=== PATIENT | female | born 1955 | race Caucasian/White ===

== ENCOUNTER 2016-04-30 15:59 | Inpatient (IN) | payer OTHER ==
[~2016-04-30] VITALS: Ht 167.6 cm; Wt 81.6 kg
[2016-04-30 16:58] LABS: BASO % 0 % (0-3); EOS % 0 % (0-3); HEMATOCRIT 31.6 % (36.0-47.0); HEMOGLOBIN 9.7 g/dL (12.0-15.5); LYMPH # 2.7 x10^3/uL (1.0-4.8); LYMPH % 22 % (24-48); MEAN CORPUSCULAR HEMOGLOBIN 24 pg (25-35); MEAN CORPUSCULAR HGB CONC 31 g/dL (31-37); MEAN CORPUSCULAR VOLUME 77 fL (79-100); MONO % 10 % (0-9); NEUT % 68 % (31-73); PLATELET COUNT 383 x10^3/uL (140-400); RED BLOOD COUNT 4.11 x10^6/uL (3.50-5.40); RED CELL DISTRIBUTION WIDTH 17.1 % (11.5-14.5); WHITE BLOOD COUNT 12.6 x10^3/uL (4.0-11.0)
[2016-04-30] MEDS ORDERED: IPRATRPIUM/ALBUTEROL 0.5/2.5MG 3 ML NEBU. NEB ONE (17:00)
[2016-04-30 17:12] LABS: CALCIUM 8.6 mg/dL (8.5-10.1); CREATININE 0.8 mg/dL (0.6-1.0); GFR 72.4
[2016-04-30 17:18] LABS: ALBUMIN 3.1 g/dL (3.4-5.0); DIRECT BILIRUBIN 0.2 mg/dL (0.0-0.2); TOTAL BILIRUBIN 0.7 mg/dL (0.2-1.0); TOTAL PROTEIN 6.1 g/dL (6.4-8.2)
--- NOTE | 2016-04-30 17:26 | PHYS DOC ---
Past Medical History Past Medical History: Diabetes-Type II, Hypertension, Renal Disease Past Surgical History: No Surgical History Additional Information: smoked as a teenager Alcohol Use: Rarely Drug Use: None Adult General Chief Complaint Chief Complaint: SHORTNESS OF BREATH HPI HPI 61-year-old female presenting to the emergency department with worsening shortness of breath and fatigue over the last 3 weeks. She reports being diagnosed with influenza and UTI. She reports mild swelling of her legs bilaterally. She denies any chest pain abdominal pain nausea vomiting. She denies fevers or chills. Her dyspnea is worse on exertion. Location lungs. Duration intermittent. Nonradiating. Review of systems is negative for chest pain abdominal pain nausea vomiting fevers or chills. All other review of systems is negative unless otherwise noted in history of present illness. Review of Systems Review of Systems SEE ABOVE. Current Medications Current Medications Current Medications Medications (Trade) Dose Ordered Sig/Nidhi Start Time Stop Time Status Last Admin Dose Admin Acetaminophen (Tylenol) 650 mg PRN Q6HRS PRN 04/30/16 20:45 Acetaminophen/ Hydrocodone Bitart (Lortab 5/325) 1 tab PRN Q4HRS PRN 04/30/16 20:45 Albuterol Sulfate (Ventolin Neb Soln) 2.5 mg PRN Q4HRS PRN 04/30/16 20:45 Albuterol/ Ipratropium (Duoneb) 3 ml 1X ONCE 04/30/16 17:00 04/30/16 17:01 DC 04/30/16 17:26 3 ML Ondansetron HCl (Zofran) 4 mg PRN Q6HRS PRN 04/30/16 20:45 Allergies Allergies Allergies Coded Allergies Type Severity Reaction Last Updated Verified No Known Drug Allergies 04/30/16 No Physical Exam Physical Exam Constitutional: Well developed, well nourished, no acute distress, non-toxic appearance. HENT: Normocephalic, atraumatic, bilateral external ears normal, oropharynx moist, no oral exudates, nose normal. [] Eyes: PERRLA, EOMI, conjunctiva normal, no discharge. [] Neck: Normal range of motion, no tenderness, supple, no stridor. Cardiovascular:Heart rate regular rhythm, no murmur [] Lungs & Thorax: Bilateral breath sounds clear to auscultation [] Abdomen: Bowel sounds normal, soft, no tenderness, no masses, no pulsatile masses. Skin: Warm, dry, no erythema, no rash. [] Back: No tenderness, no CVA tenderness. Extremities: No tenderness, no cyanosis, no clubbing, ROM intact, 2+ edema. Neurologic: Alert and oriented X 3, normal motor function, normal sensory function, no focal deficits noted. Psychologic: Affect normal, judgement normal, mood normal. [] Current Patient Data Vital Signs Vital Signs Date Time Temp Pulse Resp B/P Pulse Ox O2 Delivery O2 Flow Rate FiO2 04/30/16 20:12 108 22 105/74 96 Nasal Cannula 2 04/30/16 16:03 98.1 98.1 Lab Values Laboratory Tests Test 04/30/16 16:37 04/30/16 17:45 White Blood Count 12.6x10^3/uL (4.0-11.0) H Red Blood Count 4.11x10^6/uL (3.50-5.40) Hemoglobin 9.7g/dL (12.0-15.5) L Hematocrit 31.6% (36.0-47.0) L Mean Corpuscular Volume 77fL (79-100) L Mean Corpuscular Hemoglobin 24pg (25-35) L Mean Corpuscular Hemoglobin Concent 31g/dL (31-37) Red Cell Distribution Width 17.1% (11.5-14.5) H Platelet Count 383x10^3/uL (140-400) Neutrophils (%) (Auto) 68% (31-73) Lymphocytes (%) (Auto) 22% (24-48) L Monocytes (%) (Auto) 10% (0-9) H Eosinophils (%) (Auto) 0% (0-3) Basophils (%) (Auto) 0% (0-3) Neutrophils # (Auto) 8.6x10^3uL (1.8-7.7) H Lymphocytes # (Auto) 2.7x10^3/uL (1.0-4.8) Monocytes # (Auto) 1.2x10^3/uL (0.0-1.1) H Eosinophils # (Auto) 0.0x10^3/uL (0.0-0.7) Basophils # (Auto) 0.0x10^3/uL (0.0-0.2) Sodium Level 134mmol/L (136-145) L Potassium Level 4.0mmol/L (3.5-5.1) Chloride Level 98mmol/L (98-107) Carbon Dioxide Level 24mmol/L (21-32) Anion Gap 12 (6-14) Blood Urea Nitrogen 13mg/dL (7-20) Creatinine 0.8mg/dL (0.6-1.0) Estimated GFR (Cockcroft-Gault) 72.4 Glucose Level 122mg/dL (70-99) H Calcium Level 8.6mg/dL (8.5-10.1) Total Bilirubin 0.7mg/dL (0.2-1.0) Direct Bilirubin 0.2mg/dL (0.0-0.2) Aspartate Amino Transferase (AST) 37U/L (15-37) Alanine Aminotransferase (ALT) 60U/L (14-59) H Alkaline Phosphatase 115U/L (46-116) Troponin I Quantitative 0.032ng/mL (0.000-0.055) FW-Uod-A-Type Natriuretic Peptide 4912pg/mL (0-124) H Total Protein 6.1g/dL (6.4-8.2) L Albumin 3.1g/dL (3.4-5.0) L Lipase 140U/L (73-393) Urine Collection Type Unknown Urine Color Yellow Urine Clarity Clear Urine pH 6.0 Urine Specific [place] 1.020 Urine Protein 30mg/dL (NEG-TRACE) Urine Glucose (UA) Negativemg/dL (NEG) Urine Ketones (Stick) Negativemg/dL (NEG) Urine Blood Negative (NEG) Urine Nitrite Negative (NEG) Urine Bilirubin Negative (NEG) Urine Urobilinogen Dipstick 4.0mg/dL (0.2 mg/dL) Urine Leukocyte Esterase Small (NEG) Urine RBC 0/HPF (0-2) Urine WBC 5-10/HPF (0-4) Urine Squamous Epithelial Cells Few/LPF Urine Bacteria 0/HPF (0-FEW) Urine Mucus Slight/LPF Laboratory Tests 04/30/16 16:37 Laboratory Tests 04/30/16 16:37 EKG EKG [] Radiology/Procedures Radiology/Procedures [] Course & Med Decision Making Course & Med Decision Making Pertinent Labs and Imaging studies reviewed. (See chart for details) [] 61-year-old female presenting to the emergency department with 3 weeks of shortness of breath fatigue. Vital signs afebrile mild tachycardia. Otherwise unremarkable. Pertinent physical exam shows normal lungs to auscultation. Otherwise unremarkable exam other than mild edema. EKG unremarkable. Chest x- ray shows mild pulmonary vasculature and increased.. Blood work obtained which showed elevated proBNP. Leukocytosis present. Otherwise the patient not having clinical presentation suggestive of pneumonia. Hemoglobin mild anemia. Chemistry panel otherwise unremarkable. Troponin within the reference range of normal. Patient desaturated on walking desats examination down to the 70s. Patient was brought into the hospital for further evaluation workup and care including cardiology consultation. . Dragon Disclaimer Dragon Disclaimer This electronic medical record was generated, in whole or in part, using a voice recognition dictation system. Departure Departure Impression: Primary Impression: Shortness of breath Additional Impressions: Fatigue Malaise Edema Disposition: ADMITTED INPATIENT Admitting Physician: Campbell Tobias Condition: STABLE Referrals: VIVEK DE OLIVEIRA DO (PCP) Patient Instructions: Shortness of Breath Problem Qualifiers IBRAHIMA SHARP MD Apr 30, 2016 17:26
[2016-04-30 17:56] LABS: BILIRUBIN,URINE NEGATIVE (NEG); GLUCOSE,URINE NEGATIVE (NEG); NITRITE,URINE NEGATIVE (NEG); PROTEIN,URINE 30 mg/dL (NEG-TRACE)
[2016-04-30 18:05] LABS: BACTERIA,URINE 0 /HPF (0-FEW); RBC,URINE 0 /HPF (0-2); SQUAMOUS EPITHELIAL CELL,UR FEW /LPF
[2016-04-30] MEDS ORDERED: HYDROCODONE/APAP 5/325MG TABLET. PO PRN (20:45)
[2016-04-30] MEDS ORDERED: ONDANSETRON PF 4 MG/2 ML VIAL. IV PRN (20:45)
[2016-04-30] MEDS ORDERED: ALBUTEROL SULFATE 2.5 MG/3 ML NEBU. NEB PRN (20:45)
[2016-04-30] MEDS ORDERED: ACETAMINOPHEN 325 MG TABLET. PO PRN (20:45)
--- NOTE | 2016-04-30 20:54 | PDOC1 ---
History and Physical Date of Admission Date of Admission 04/30/16 Identification/Chief Complaint Chief Complaint sob Problems: Source Source: Chart review, Patient History of Present Illness History of Present Illness HPI HPI 61-year-old female presenting to the emergency department with worsening shortness of breath and fatigue over the last 3 weeks. pt has no heart problem before, has dm2 and ckd2. Pt started to feel sob , cold like symptom 3 weeks ago, with no cough till this week, no sputum, no fever, chills, went to [facility] 2 times and was told UTI and flu?. she was treated and mild dysuria was gone. She cont having dyspnea, exertional, cannot lie flat for sleep, with bl leg edema. She was told to fu with PCP and called card office and was told to come to hosp. need o2 in ER. Past Medical History Past Medical History DM2, CKD2 Past Surgical History Past Surgical History: No pertinent history Family History Family History: Heart Disease Social History Smoke: No ALCOHOL: none Drugs: None Current Problem List Problem List Problems Medical Problems: (1) Edema Status: Acute (2) Fatigue Status: Acute (3) Malaise Status: Acute (4) Shortness of breath Status: Acute Current Medications Current Medications Current Medications Medications (Trade) Dose Ordered Sig/Nidhi Start Time Stop Time Status Last Admin Dose Admin Acetaminophen (Tylenol) 650 mg PRN Q6HRS PRN 04/30/16 20:45 UNV Acetaminophen/ Hydrocodone Bitart (Lortab 5/325) 1 tab PRN Q4HRS PRN 04/30/16 20:45 UNV Albuterol/ Ipratropium (Duoneb) 3 ml 1X ONCE 04/30/16 17:00 04/30/16 17:01 DC 04/30/16 17:26 3 ML Enoxaparin Sodium (Lovenox 40mg Syringe) 40 mg Q24H 04/30/16 20:45 UNV Ondansetron HCl (Zofran) 4 mg PRN Q6HRS PRN 04/30/16 20:45 UNV Allergies Allergies Allergies Coded Allergies Type Severity Reaction Last Updated Verified No Known Drug Allergies 04/30/16 No ROS Review of System CONSTITUTIONAL: No fever or chills EYES: No recent changes SKIN: No rash or itching CARDIOVASCULAR: No chest pain, syncope, palpitations, or edema RESPIRATORY: No SOB or cough GASTROINTESTINAL: No nausea, vomiting or abdominal pain NEUROLOGICAL: No headaches or weakness ENDOCRINE: No cold or heat intolerance GENITOURINARY: No urgency or frequency of urination MUSCULOSKELETAL: No back pain or joint pain LYMPHATICS: No enlarged lymph nodes PSYCHIATRIC: No anxiety or depression Physical Exam Physical Exam GEN.: No apparent distress. Alert and oriented. looks tired and pale HEENT: Head is normocephalic, atraumatic NECK: Supple. LUNGS: Clear to auscultation. HEART: RRR, S1, S2 present. Peripheral pulses intact. tachycardia ABDOMEN: Soft, nontender. Positive bowel sounds. EXTREMITIES: Without any cyanosis. bl leg 1-2+ edema NEUROLOGIC: Normal speech, normal tone PSYCHIATRIC: Normal affect, normal mood. SKIN: No ulcerations Vitals Vitals Vital Signs Date Time Temp Pulse Resp B/P Pulse Ox O2 Delivery O2 Flow Rate FiO2 04/30/16 17:30 98 Room Air 04/30/16 16:03 98.1 106 20 113/51 98.1 Labs Labs Laboratory Tests Test 04/30/16 16:37 04/30/16 17:45 White Blood Count 12.6x10^3/uL (4.0-11.0) Red Blood Count 4.11x10^6/uL (3.50-5.40) Hemoglobin 9.7g/dL (12.0-15.5) Hematocrit 31.6% (36.0-47.0) Mean Corpuscular Volume 77fL (79-100) Mean Corpuscular Hemoglobin 24pg (25-35) Mean Corpuscular Hemoglobin Concent 31g/dL (31-37) Red Cell Distribution Width 17.1% (11.5-14.5) Platelet Count 383x10^3/uL (140-400) Neutrophils (%) (Auto) 68% (31-73) Lymphocytes (%) (Auto) 22% (24-48) Monocytes (%) (Auto) 10% (0-9) Eosinophils (%) (Auto) 0% (0-3) Basophils (%) (Auto) 0% (0-3) Neutrophils # (Auto) 8.6x10^3uL (1.8-7.7) Lymphocytes # (Auto) 2.7x10^3/uL (1.0-4.8) Monocytes # (Auto) 1.2x10^3/uL (0.0-1.1) Eosinophils # (Auto) 0.0x10^3/uL (0.0-0.7) Basophils # (Auto) 0.0x10^3/uL (0.0-0.2) Sodium Level 134mmol/L (136-145) Potassium Level 4.0mmol/L (3.5-5.1) Chloride Level 98mmol/L (98-107) Carbon Dioxide Level 24mmol/L (21-32) Anion Gap 12 (6-14) Blood Urea Nitrogen 13mg/dL (7-20) Creatinine 0.8mg/dL (0.6-1.0) Estimated GFR (Cockcroft-Gault) 72.4 Glucose Level 122mg/dL (70-99) Calcium Level 8.6mg/dL (8.5-10.1) Total Bilirubin 0.7mg/dL (0.2-1.0) Direct Bilirubin 0.2mg/dL (0.0-0.2) Aspartate Amino Transf (AST/SGOT) 37U/L (15-37) Alanine Aminotransferase (ALT/SGPT) 60U/L (14-59) Alkaline Phosphatase 115U/L (46-116) Troponin I Quantitative 0.032ng/mL (0.000-0.055) FL-Vby-D-Type Natriuretic Peptide 4912pg/mL (0-124) Total Protein 6.1g/dL (6.4-8.2) Albumin 3.1g/dL (3.4-5.0) Lipase 140U/L (73-393) Urine Collection Type Unknown Urine Color Yellow Urine Clarity Clear Urine pH 6.0 Urine Specific [place] 1.020 Urine Protein 30mg/dL (NEG-TRACE) Urine Glucose (UA) Negativemg/dL (NEG) Urine Ketones (Stick) Negativemg/dL (NEG) Urine Blood Negative (NEG) Urine Nitrite Negative (NEG) Urine Bilirubin Negative (NEG) Urine Urobilinogen Dipstick 4.0mg/dL (0.2 mg/dL) Urine Leukocyte Esterase Small (NEG) Urine RBC 0/HPF (0-2) Urine WBC 5-10/HPF (0-4) Urine Squamous Epithelial Cells Few/LPF Urine Bacteria 0/HPF (0-FEW) Urine Mucus Slight/LPF Laboratory Tests Test 04/30/16 16:37 04/30/16 17:45 White Blood Count 12.6x10^3/uL (4.0-11.0) Red Blood Count 4.11x10^6/uL (3.50-5.40) Hemoglobin 9.7g/dL (12.0-15.5) Hematocrit 31.6% (36.0-47.0) Mean Corpuscular Volume 77fL (79-100) Mean Corpuscular Hemoglobin 24pg (25-35) Mean Corpuscular Hemoglobin Concent 31g/dL (31-37) Red Cell Distribution Width 17.1% (11.5-14.5) Platelet Count 383x10^3/uL (140-400) Neutrophils (%) (Auto) 68% (31-73) Lymphocytes (%) (Auto) 22% (24-48) Monocytes (%) (Auto) 10% (0-9) Eosinophils (%) (Auto) 0% (0-3) Basophils (%) (Auto) 0% (0-3) Neutrophils # (Auto) 8.6x10^3uL (1.8-7.7) Lymphocytes # (Auto) 2.7x10^3/uL (1.0-4.8) Monocytes # (Auto) 1.2x10^3/uL (0.0-1.1) Eosinophils # (Auto) 0.0x10^3/uL (0.0-0.7) Basophils # (Auto) 0.0x10^3/uL (0.0-0.2) Sodium Level 134mmol/L (136-145) Potassium Level 4.0mmol/L (3.5-5.1) Chloride Level 98mmol/L (98-107) Carbon Dioxide Level 24mmol/L (21-32) Anion Gap 12 (6-14) Blood Urea Nitrogen 13mg/dL (7-20) Creatinine 0.8mg/dL (0.6-1.0) Estimated GFR (Cockcroft-Gault) 72.4 Glucose Level 122mg/dL (70-99) Calcium Level 8.6mg/dL (8.5-10.1) Total Bilirubin 0.7mg/dL (0.2-1.0) Direct Bilirubin 0.2mg/dL (0.0-0.2) Aspartate Amino Transf (AST/SGOT) 37U/L (15-37) Alanine Aminotransferase (ALT/SGPT) 60U/L (14-59) Alkaline Phosphatase 115U/L (46-116) Troponin I Quantitative 0.032ng/mL (0.000-0.055) EJ-Avi-A-Type Natriuretic Peptide 4912pg/mL (0-124) Total Protein 6.1g/dL (6.4-8.2) Albumin 3.1g/dL (3.4-5.0) Lipase 140U/L (73-393) Urine Collection Type Unknown Urine Color Yellow Urine Clarity Clear Urine pH 6.0 Urine Specific [place] 1.020 Urine Protein 30mg/dL (NEG-TRACE) Urine Glucose (UA) Negativemg/dL (NEG) Urine Ketones (Stick) Negativemg/dL (NEG) Urine Blood Negative (NEG) Urine Nitrite Negative (NEG) Urine Bilirubin Negative (NEG) Urine Urobilinogen Dipstick 4.0mg/dL (0.2 mg/dL) Urine Leukocyte Esterase Small (NEG) Urine RBC 0/HPF (0-2) Urine WBC 5-10/HPF (0-4) Urine Squamous Epithelial Cells Few/LPF Urine Bacteria 0/HPF (0-FEW) Urine Mucus Slight/LPF VTE Prophylaxis Ordered VTE Prophylaxis Devices: Yes VTE Pharmacological Prophylaxi: Yes Assessment/Plan Assessment/Plan 1. acute resp failure with hypoxia 2. Acute CHF, likely diastolic 3. dm2 4. ckd2 5. anemia, likely chronic plan: 1. will get Card consult 2. check troponin, TSH, LIpid panel, 3. check ECho need home meds ssi for now labs tmr albuterol prn daily weight in and out lasix 40mg iv x1 for now check iron, vitb12, fa SELINA RICHARDS MD Apr 30, 2016 20:53
[2016-04-30] MEDS ORDERED: FUROSEMIDE 40 MG/4 ML VIAL IVP ONE (21:30)
[2016-04-30 22:15] VITALS: BP 117/67
[2016-04-30] MEDS ORDERED: LOSA25TA4 PO (23:33)
[2016-04-30] MEDS ORDERED: BIMA2.5D EACHEYE (23:33)
[2016-04-30] MEDS ORDERED: POTA10TA10 PO (23:33)
[2016-04-30] MEDS ORDERED: METF500T4 PO (23:33)
[2016-04-30] MEDS ORDERED: FURO40TA4 PO (23:33)
[2016-04-30] MEDS ORDERED: ZOLP10TA PO (23:33)
[2016-04-30] MEDS ORDERED: ATOR10TA60 PO (23:33)
[2016-04-30] MEDS: ENOXAPARIN 40 MG/0.4 ML DISP.SYRIN. SQ SCH (23:40)
[2016-05-01] VITALS (7 sets, daily range): BP systolic 98–147; BP diastolic 64–98
--- NOTE | 2016-05-01 00:46 | RAD ---
Bilateral lower extremity venous Doppler: Reason for examination: Bilateral lower extremity swelling with shortness of breath. The right and left lower extremity venous systems were evaluated from the common femoral and greater saphenous veins distally to the calf veins with grayscale imaging, color flow imaging and spectral analysis. No deep venous thrombosis is seen in either venous system. There is normal response to compression and augmentation. Impression: No deep venous thrombosis in the right or left lower extremity. Electronically signed by: Dominique Moreno MD (May 01, 2016 00:44:58)
[2016-05-01 04:07] LABS: % SAT IRON 5 % (15-34); IRON,SERUM 18 ug/dL (50-170)
[2016-05-01 04:12] LABS: CHOLESTEROL/HDL RATIO 2.9
--- NOTE | 2016-05-01 05:27 | ACF ---
Admission Forms Criteria HEART FAILURE: COMMON COMPLICATIONS Clinical Indications for Inpatient Care (Place 'X' for any and all applicable criteria): Ongoing inpatient care may be indicated for heart failure with ANY ONE of the following (1)(2)(3)(4)(5): [ ]I. Ongoing need for care for primary condition requiring frequent therapy adjustments because of changes in cardiac function (eg, drug dosage changes for drugs that are renally metabolized) [ ]II. New-onset heart failure [ ]III. Heart failure with decreased urine output not responsive to attempts to optimize volume status [ ]IV. Acute cardiac ischemia causing or associated with failure [X]V. Complications of heart failure, including ANY ONE of the following: [ ]a) Pericardial effusion [ ]b) Symptomatic pleural effusion [ ]c) O2 saturation <90% or PO2 < 60 mm Hg (8.0 kPa) on room air or require baseline supplemental O2 [ ]d) Tachypnea [X]e) Dyspnea [ ]f) Syncope [ ]g) Change in mental status [ ]h) Acute renal insufficiency that is severe (reduction of more than 50% in estimated glomerular filtration rate from baseline) or progressive reduction of more than 25% in estimated glomerular filtration rate from baseline, with creatinine continuing to rise) [ ]i) Hemodynamic instability [ ]j) Anasarca [ ]k) Clinically significant metabolic abnormalities due to heart failure (eg, new-onset metabolic acidosis) Extended stay beyond goal length of stay for primary condition may be needed until ALL of the following are present(1)(3): [ ]a) Stable and effective diuretic regimen established (or patient on stable dialysis regimen if in chronic renal failure) [ ]b) Breathing comfortably at rest [ ]c) Saturation of arterial oxygen greater than 90% or at acceptable baseline [ ]d) Pulmonary edema absent or improved [ ]e) Hemodynamic stability [ ]f) Volume status acceptable on oral medication [ ]g) Peripheral or sacral edema absent or improved [ ]h) Renal function stable and manageable at a lower level of care [ ]i) Complications (eg, pleural effusion) resolved or manageable at a lower level of care [ ]j) Patient or caregiver has received written discharge instructions or educational material addressing activity level, diet, discharge medications, follow-up appointment, weight monitoring, and what to do if symptoms worsen The original [facility] content created by [employer] has been revised. The portions of the content which have been revised are identified through the use of italic text or in bold, and [facility] has neither reviewed nor approved the modified material.All other unmodified content is copyright [facility]. Please see references footnoted in the original [facility] edition 2016 Admission Criteria Met?: Yes BRETT BOURNE May 01, 2016 05:27
--- NOTE | 2016-05-01 06:47 | EKG ---
[facility] [address] [place] [address] Test Date: 2016-04-30 Test Time: 17:14:48 Pat Name: LEATHA WHITE Department: Room: Gender: F Conventions Assistant: : [id number] Requested By: IBRAHIMA SHARP Order Number: [id number] Reading MD: Measurements Intervals [place] Rate: 102 P: 66 [place]: 150 QRS: 105 QRSD: 88 T: 22 QT: 338 QTc: 445 Interpretive Statements SINUS TACHYCARDIA RIGHTWARD AXIS LOW LIMB LEAD VOLTAGE QRS(T) CONTOUR ABNORMALITY CONSIDER ANTEROLATERAL MYOCARDIAL DAMAGE T ABNORMALITY IN ANTEROSEPTAL LEADS RI6.01 Unconfirmed report No previous ECG available for comparison
--- NOTE | 2016-05-01 08:50 | RAD ---
Portable chest, 04/30/2016: History: Chest pain and weakness The heart is at the upper limits of normal in size. The pulmonary vascularity is normal. There is blunting of the costophrenic and vertebrophrenic angles on the left probably due to pleural fluid. Scarring is a less likely possibility. No pulmonary infiltrates are seen. IMPRESSION: Probable small left pleural effusion
--- NOTE | 2016-05-01 11:03 | PDOC2 ---
CONSULT Date of Consult Date of Consult DATE: 04/30/16 TIME: 20:52 Reason for Consult Reason for Consult: Suspected CHF Referring Physician Referring Physician: Dr. Tobias Identification/Chief Complaint Chief Complaint CHF History of Present Illness Reason for Visit: Patient is a pleasant 61 year old female who report being sick for about the past month. She was seen at [facility] for what she believed was the flu as well as a UTI. She was treated with antibiotics for the UTI though her breathing has remained labored since that time. Patient has also noticed swelling in her legs and face. Patient saw her primary doctor and was told to see cardiology. Patient came to the ER because her breathing was not improved and was unable to get in with cardiology for at least 2 weeks. Patient has a PMH of DM2 and CKD2 and has no known cardiac problems. Patient does not smoke or drink. Since admission patient has received 1 dose of 40mg IVP lasix and reports improved swelling of legs and is now able to take deep breaths. Past Surgical History Past Surgical History: No pertinent history Family History Family History: Heart Disease Social History No ALCOHOL: none Drugs: None Current Problem List Problem List Problems Medical Problems: (1) Edema Status: Acute (2) Fatigue Status: Acute (3) Malaise Status: Acute (4) Shortness of breath Status: Acute Current Medications Current Medications Current Medications Albuterol/ Ipratropium (Duoneb) 3 ml 1X ONCE NEB Last administered on 17:26; Start 04/30/16 at 17:00; Stop 04/30/16 at 17:01; Status DC Ondansetron HCl (Zofran) 4 mg PRN Q6HRS PRN IV NAUSEA/VOMITING; Start 04/30/16 at 20:45 Acetaminophen/ Hydrocodone Bitart (Lortab 5/325) 1 tab PRN Q4HRS PRN PO MILD PAIN; Start 04/30/16 at 20:45 Acetaminophen (Tylenol) 650 mg PRN Q6HRS PRN PO MILD PAIN / TEMP; Start at 20:45 Enoxaparin Sodium (Lovenox 40mg Syringe) 40 mg Q24H SQ Last administered on 23:40; Start 04/30/16 at 21:00 Albuterol Sulfate (Ventolin Neb Soln) 2.5 mg PRN Q4HRS PRN NEB SHORTNESS OF BREATH; Start 04/30/16 at 20:45 Furosemide (Lasix) 40 mg 1X ONCE IVP Last administered on 04/30/16t 23:40; Start 04/30/16 at 21:30; Stop 04/30/16 at 21:31; Status DC Active Scripts Active Reported Potassium Chloride 10 Meq Tablet.er 10 Meq PO DAILY Furosemide 40 Mg Tablet 40 Mg PO DAILY Ambien (Zolpidem Tartrate) 10 Mg Tablet 10 Mg PO HS PRN Lumigan (Bimatoprost) 2.5 Ml Drops 2 Drop EACHEYE QHS Atorvastatin Calcium 10 Mg Tablet 10 Mg PO DAILY Losartan Potassium 25 Mg Tablet 25 Mg PO DAILY Metformin Hcl 500 Mg Tablet 1 Tab PO BID Allergies Allergies: Coded Allergies: No Known Drug Allergies (Unverified , 04/30/16) Physical Exam General: Alert, Oriented X3, Cooperative, No acute distress HEENT: Atraumatic, Mucous membr. moist/pink Lungs: Clear to auscultation, Normal air movement Heart: Regular rate, Normal S1, Normal S2 Extremities: No cyanosis, Other (+1/4 pitting edema) Skin: No rashes, No breakdown Vitals VITALS Vital Signs Date Time Temp Pulse Resp B/P Pulse Ox O2 Delivery O2 Flow Rate FiO2 05/01/16 08:21 96 Room Air 05/01/16 08:00 2.0 05/01/16 07:15 98.4 103 18 105/68 98.4 Labs Labs Laboratory Tests Test 04/30/16 16:37 04/30/16 17:45 05/01/16 03:22 05/01/16 07:46 White Blood Count 12.6x10^3/uL (4.0-11.0) Red Blood Count 4.11x10^6/uL (3.50-5.40) Hemoglobin 9.7g/dL (12.0-15.5) Hematocrit 31.6% (36.0-47.0) Mean Corpuscular Volume 77fL (79-100) Mean Corpuscular Hemoglobin 24pg (25-35) Mean Corpuscular Hemoglobin Concent 31g/dL (31-37) Red Cell Distribution Width 17.1% (11.5-14.5) Platelet Count 383x10^3/uL (140-400) Neutrophils (%) (Auto) 68% (31-73) Lymphocytes (%) (Auto) 22% (24-48) Monocytes (%) (Auto) 10% (0-9) Eosinophils (%) (Auto) 0% (0-3) Basophils (%) (Auto) 0% (0-3) Neutrophils # (Auto) 8.6x10^3uL (1.8-7.7) Lymphocytes # (Auto) 2.7x10^3/uL (1.0-4.8) Monocytes # (Auto) 1.2x10^3/uL (0.0-1.1) Eosinophils # (Auto) 0.0x10^3/uL (0.0-0.7) Basophils # (Auto) 0.0x10^3/uL (0.0-0.2) Sodium Level 134mmol/L (136-145) Potassium Level 4.0mmol/L (3.5-5.1) Chloride Level 98mmol/L (98-107) Carbon Dioxide Level 24mmol/L (21-32) Anion Gap 12 (6-14) Blood Urea Nitrogen 13mg/dL (7-20) Creatinine 0.8mg/dL (0.6-1.0) Estimated GFR (Cockcroft-Gault) 72.4 Glucose Level 122mg/dL (70-99) Calcium Level 8.6mg/dL (8.5-10.1) Total Bilirubin 0.7mg/dL (0.2-1.0) Direct Bilirubin 0.2mg/dL (0.0-0.2) Aspartate Amino Transf (AST/SGOT) 37U/L (15-37) Alanine Aminotransferase (ALT/SGPT) 60U/L (14-59) Alkaline Phosphatase 115U/L (46-116) Troponin I Quantitative 0.032ng/mL (0.000-0.055) 0.044ng/mL (0.000-0.055) WU-Hri-E-Type Natriuretic Peptide 4912pg/mL (0-124) Total Protein 6.1g/dL (6.4-8.2) Albumin 3.1g/dL (3.4-5.0) Lipase 140U/L (73-393) Urine Collection Type Unknown Urine Color Yellow Urine Clarity Clear Urine pH 6.0 Urine Specific [place] 1.020 Urine Protein 30mg/dL (NEG-TRACE) Urine Glucose (UA) Negativemg/dL (NEG) Urine Ketones (Stick) Negativemg/dL (NEG) Urine Blood Negative (NEG) Urine Nitrite Negative (NEG) Urine Bilirubin Negative (NEG) Urine Urobilinogen Dipstick 4.0mg/dL (0.2 mg/dL) Urine Leukocyte Esterase Small (NEG) Urine RBC 0/HPF (0-2) Urine WBC 5-10/HPF (0-4) Urine Squamous Epithelial Cells Few/LPF Urine Bacteria 0/HPF (0-FEW) Urine Mucus Slight/LPF Iron Level 18ug/dL (50-170) Total Iron Binding Capacity 386ug/dL (250-450) Iron Saturation 5% (15-34) Ferritin 15ng/mL (8-252) Triglycerides Level 48mg/dL (0-150) Cholesterol Level 88mg/dL (0-200) LDL Cholesterol, Calculated 48mg/dL (0-100) VLDL Cholesterol, Calculated 10mg/dL (0-40) HDL Cholesterol 30mg/dL (40-60) Cholesterol/HDL Ratio 2.9 Thyroid Stimulating Hormone (TSH) 2.375uIU/mL (0.358-3.74) Glucose (Fingerstick) 130mg/dL (70-99) Laboratory Tests Test 04/30/16 16:37 04/30/16 17:45 05/01/16 03:22 05/01/16 07:46 White Blood Count 12.6x10^3/uL (4.0-11.0) Red Blood Count 4.11x10^6/uL (3.50-5.40) Hemoglobin 9.7g/dL (12.0-15.5) Hematocrit 31.6% (36.0-47.0) Mean Corpuscular Volume 77fL (79-100) Mean Corpuscular Hemoglobin 24pg (25-35) Mean Corpuscular Hemoglobin Concent 31g/dL (31-37) Red Cell Distribution Width 17.1% (11.5-14.5) Platelet Count 383x10^3/uL (140-400) Neutrophils (%) (Auto) 68% (31-73) Lymphocytes (%) (Auto) 22% (24-48) Monocytes (%) (Auto) 10% (0-9) Eosinophils (%) (Auto) 0% (0-3) Basophils (%) (Auto) 0% (0-3) Neutrophils # (Auto) 8.6x10^3uL (1.8-7.7) Lymphocytes # (Auto) 2.7x10^3/uL (1.0-4.8) Monocytes # (Auto) 1.2x10^3/uL (0.0-1.1) Eosinophils # (Auto) 0.0x10^3/uL (0.0-0.7) Basophils # (Auto) 0.0x10^3/uL (0.0-0.2) Sodium Level 134mmol/L (136-145) Potassium Level 4.0mmol/L (3.5-5.1) Chloride Level 98mmol/L (98-107) Carbon Dioxide Level 24mmol/L (21-32) Anion Gap 12 (6-14) Blood Urea Nitrogen 13mg/dL (7-20) Creatinine 0.8mg/dL (0.6-1.0) Estimated GFR (Cockcroft-Gault) 72.4 Glucose Level 122mg/dL (70-99) Calcium Level 8.6mg/dL (8.5-10.1) Total Bilirubin 0.7mg/dL (0.2-1.0) Direct Bilirubin 0.2mg/dL (0.0-0.2) Aspartate Amino Transf (AST/SGOT) 37U/L (15-37) Alanine Aminotransferase (ALT/SGPT) 60U/L (14-59) Alkaline Phosphatase 115U/L (46-116) Troponin I Quantitative 0.032ng/mL (0.000-0.055) 0.044ng/mL (0.000-0.055) WG-Dxk-K-Type Natriuretic Peptide 4912pg/mL (0-124) Total Protein 6.1g/dL (6.4-8.2) Albumin 3.1g/dL (3.4-5.0) Lipase 140U/L (73-393) Urine Collection Type Unknown Urine Color Yellow Urine Clarity Clear Urine pH 6.0 Urine Specific [place] 1.020 Urine Protein 30mg/dL (NEG-TRACE) Urine Glucose (UA) Negativemg/dL (NEG) Urine Ketones (Stick) Negativemg/dL (NEG) Urine Blood Negative (NEG) Urine Nitrite Negative (NEG) Urine Bilirubin Negative (NEG) Urine Urobilinogen Dipstick 4.0mg/dL (0.2 mg/dL) Urine Leukocyte Esterase Small (NEG) Urine RBC 0/HPF (0-2) Urine WBC 5-10/HPF (0-4) Urine Squamous Epithelial Cells Few/LPF Urine Bacteria 0/HPF (0-FEW) Urine Mucus Slight/LPF Iron Level 18ug/dL (50-170) Total Iron Binding Capacity 386ug/dL (250-450) Iron Saturation 5% (15-34) Ferritin 15ng/mL (8-252) Triglycerides Level 48mg/dL (0-150) Cholesterol Level 88mg/dL (0-200) LDL Cholesterol, Calculated 48mg/dL (0-100) VLDL Cholesterol, Calculated 10mg/dL (0-40) HDL Cholesterol 30mg/dL (40-60) Cholesterol/HDL Ratio 2.9 Thyroid Stimulating Hormone (TSH) 2.375uIU/mL (0.358-3.74) Glucose (Fingerstick) 130mg/dL (70-99) Assessment/Plan Assessment/Plan Pt with dyspnea, fatigue, edema CHF versus Pulmonary HTN Will get an echocardiogram to evaluate LV and PA pressure Thank you for asking me to participate in the care of this pt. NANCY MUNOZ MD May 01, 2016 11:03
[2016-05-01 11:19] LABS: FOLATE > 20.00 ng/ml (3.2-20.0); VITAMIN-B12 271 pg/mL (247-911)
[2016-05-01] MEDS ORDERED: DEXTROSE 50% 25 GM / 50ML DISP.SYRIN. IV PRN (12:45)
--- NOTE | 2016-05-01 12:49 | PDOC ---
PROGRESS NOTES Chief Complaint Chief Complaint Acute hypoxic respir failure ASSESSMENT AND PLAN: 1. CHF: acute, previously undiagnosed. likely diastolic. echo report pending. responded well to diuresis. awaiting cardiology input 2. DM2: well controlled; hold metformin for now; ISS 3. CKD2: no acute issues 5. Anemia: microcytic. iron labs c/w severe iron deficiency. replete PO. will need GI w/u on O/P basis Vitals Vitals Vital Signs Date Time Temp Pulse Resp B/P Pulse Ox O2 Delivery O2 Flow Rate FiO2 05/01/16 10:59 98.1 100 16 110/74 98 Nasal Cannula 2.0 98.1 Physical Exam General: Alert, Oriented X3, Cooperative, No acute distress Heart: Regular rate Lungs: Clear Abdomen: Normal bowel sounds, Soft, No tenderness Extremities: No cyanosis, No edema Skin: No rashes, No breakdown Labs LABS Laboratory Tests Test 04/30/16 16:37 04/30/16 17:45 05/01/16 03:22 05/01/16 07:46 White Blood Count 12.6x10^3/uL (4.0-11.0) Red Blood Count 4.11x10^6/uL (3.50-5.40) Hemoglobin 9.7g/dL (12.0-15.5) Hematocrit 31.6% (36.0-47.0) Mean Corpuscular Volume 77fL (79-100) Mean Corpuscular Hemoglobin 24pg (25-35) Mean Corpuscular Hemoglobin Concent 31g/dL (31-37) Red Cell Distribution Width 17.1% (11.5-14.5) Platelet Count 383x10^3/uL (140-400) Neutrophils (%) (Auto) 68% (31-73) Lymphocytes (%) (Auto) 22% (24-48) Monocytes (%) (Auto) 10% (0-9) Eosinophils (%) (Auto) 0% (0-3) Basophils (%) (Auto) 0% (0-3) Neutrophils # (Auto) 8.6x10^3uL (1.8-7.7) Lymphocytes # (Auto) 2.7x10^3/uL (1.0-4.8) Monocytes # (Auto) 1.2x10^3/uL (0.0-1.1) Eosinophils # (Auto) 0.0x10^3/uL (0.0-0.7) Basophils # (Auto) 0.0x10^3/uL (0.0-0.2) Sodium Level 134mmol/L (136-145) Potassium Level 4.0mmol/L (3.5-5.1) Chloride Level 98mmol/L (98-107) Carbon Dioxide Level 24mmol/L (21-32) Anion Gap 12 (6-14) Blood Urea Nitrogen 13mg/dL (7-20) Creatinine 0.8mg/dL (0.6-1.0) Estimated GFR (Cockcroft-Gault) 72.4 Glucose Level 122mg/dL (70-99) Calcium Level 8.6mg/dL (8.5-10.1) Total Bilirubin 0.7mg/dL (0.2-1.0) Direct Bilirubin 0.2mg/dL (0.0-0.2) Aspartate Amino Transf (AST/SGOT) 37U/L (15-37) Alanine Aminotransferase (ALT/SGPT) 60U/L (14-59) Alkaline Phosphatase 115U/L (46-116) Troponin I Quantitative 0.032ng/mL (0.000-0.055) 0.044ng/mL (0.000-0.055) XY-Fkh-S-Type Natriuretic Peptide 4912pg/mL (0-124) Total Protein 6.1g/dL (6.4-8.2) Albumin 3.1g/dL (3.4-5.0) Lipase 140U/L (73-393) Urine Collection Type Unknown Urine Color Yellow Urine Clarity Clear Urine pH 6.0 Urine Specific [place] 1.020 Urine Protein 30mg/dL (NEG-TRACE) Urine Glucose (UA) Negativemg/dL (NEG) Urine Ketones (Stick) Negativemg/dL (NEG) Urine Blood Negative (NEG) Urine Nitrite Negative (NEG) Urine Bilirubin Negative (NEG) Urine Urobilinogen Dipstick 4.0mg/dL (0.2 mg/dL) Urine Leukocyte Esterase Small (NEG) Urine RBC 0/HPF (0-2) Urine WBC 5-10/HPF (0-4) Urine Squamous Epithelial Cells Few/LPF Urine Bacteria 0/HPF (0-FEW) Urine Mucus Slight/LPF Iron Level 18ug/dL (50-170) Total Iron Binding Capacity 386ug/dL (250-450) Iron Saturation 5% (15-34) Ferritin 15ng/mL (8-252) Triglycerides Level 48mg/dL (0-150) Cholesterol Level 88mg/dL (0-200) LDL Cholesterol, Calculated 48mg/dL (0-100) VLDL Cholesterol, Calculated 10mg/dL (0-40) HDL Cholesterol 30mg/dL (40-60) Cholesterol/HDL Ratio 2.9 Vitamin B12 Level 271pg/mL (247-911) Serum Folate > 20.00ng/ml (3.2-20.0) Thyroid Stimulating Hormone (TSH) 2.375uIU/mL (0.358-3.74) Glucose (Fingerstick) 130mg/dL (70-99) Review of Systems Review of Systems feels fine; "ready to go home" Comment Review of Relevant I have reviewed the following items aldair (where applicable) has been applied. Labs Laboratory Tests Test 04/30/16 16:37 04/30/16 17:45 05/01/16 03:22 05/01/16 07:46 White Blood Count 12.6x10^3/uL (4.0-11.0) Red Blood Count 4.11x10^6/uL (3.50-5.40) Hemoglobin 9.7g/dL (12.0-15.5) Hematocrit 31.6% (36.0-47.0) Mean Corpuscular Volume 77fL (79-100) Mean Corpuscular Hemoglobin 24pg (25-35) Mean Corpuscular Hemoglobin Concent 31g/dL (31-37) Red Cell Distribution Width 17.1% (11.5-14.5) Platelet Count 383x10^3/uL (140-400) Neutrophils (%) (Auto) 68% (31-73) Lymphocytes (%) (Auto) 22% (24-48) Monocytes (%) (Auto) 10% (0-9) Eosinophils (%) (Auto) 0% (0-3) Basophils (%) (Auto) 0% (0-3) Neutrophils # (Auto) 8.6x10^3uL (1.8-7.7) Lymphocytes # (Auto) 2.7x10^3/uL (1.0-4.8) Monocytes # (Auto) 1.2x10^3/uL (0.0-1.1) Eosinophils # (Auto) 0.0x10^3/uL (0.0-0.7) Basophils # (Auto) 0.0x10^3/uL (0.0-0.2) Sodium Level 134mmol/L (136-145) Potassium Level 4.0mmol/L (3.5-5.1) Chloride Level 98mmol/L (98-107) Carbon Dioxide Level 24mmol/L (21-32) Anion Gap 12 (6-14) Blood Urea Nitrogen 13mg/dL (7-20) Creatinine 0.8mg/dL (0.6-1.0) Estimated GFR (Cockcroft-Gault) 72.4 Glucose Level 122mg/dL (70-99) Calcium Level 8.6mg/dL (8.5-10.1) Total Bilirubin 0.7mg/dL (0.2-1.0) Direct Bilirubin 0.2mg/dL (0.0-0.2) Aspartate Amino Transf (AST/SGOT) 37U/L (15-37) Alanine Aminotransferase (ALT/SGPT) 60U/L (14-59) Alkaline Phosphatase 115U/L (46-116) Troponin I Quantitative 0.032ng/mL (0.000-0.055) 0.044ng/mL (0.000-0.055) OA-Wun-X-Type Natriuretic Peptide 4912pg/mL (0-124) Total Protein 6.1g/dL (6.4-8.2) Albumin 3.1g/dL (3.4-5.0) Lipase 140U/L (73-393) Urine Collection Type Unknown Urine Color Yellow Urine Clarity Clear Urine pH 6.0 Urine Specific [place] 1.020 Urine Protein 30mg/dL (NEG-TRACE) Urine Glucose (UA) Negativemg/dL (NEG) Urine Ketones (Stick) Negativemg/dL (NEG) Urine Blood Negative (NEG) Urine Nitrite Negative (NEG) Urine Bilirubin Negative (NEG) Urine Urobilinogen Dipstick 4.0mg/dL (0.2 mg/dL) Urine Leukocyte Esterase Small (NEG) Urine RBC 0/HPF (0-2) Urine WBC 5-10/HPF (0-4) Urine Squamous Epithelial Cells Few/LPF Urine Bacteria 0/HPF (0-FEW) Urine Mucus Slight/LPF Iron Level 18ug/dL (50-170) Total Iron Binding Capacity 386ug/dL (250-450) Iron Saturation 5% (15-34) Ferritin 15ng/mL (8-252) Triglycerides Level 48mg/dL (0-150) Cholesterol Level 88mg/dL (0-200) LDL Cholesterol, Calculated 48mg/dL (0-100) VLDL Cholesterol, Calculated 10mg/dL (0-40) HDL Cholesterol 30mg/dL (40-60) Cholesterol/HDL Ratio 2.9 Vitamin B12 Level 271pg/mL (247-911) Serum Folate > 20.00ng/ml (3.2-20.0) Thyroid Stimulating Hormone (TSH) 2.375uIU/mL (0.358-3.74) Glucose (Fingerstick) 130mg/dL (70-99) Laboratory Tests Test 04/30/16 16:37 04/30/16 17:45 05/01/16 03:22 05/01/16 07:46 White Blood Count 12.6x10^3/uL (4.0-11.0) Red Blood Count 4.11x10^6/uL (3.50-5.40) Hemoglobin 9.7g/dL (12.0-15.5) Hematocrit 31.6% (36.0-47.0) Mean Corpuscular Volume 77fL (79-100) Mean Corpuscular Hemoglobin 24pg (25-35) Mean Corpuscular Hemoglobin Concent 31g/dL (31-37) Red Cell Distribution Width 17.1% (11.5-14.5) Platelet Count 383x10^3/uL (140-400) Neutrophils (%) (Auto) 68% (31-73) Lymphocytes (%) (Auto) 22% (24-48) Monocytes (%) (Auto) 10% (0-9) Eosinophils (%) (Auto) 0% (0-3) Basophils (%) (Auto) 0% (0-3) Neutrophils # (Auto) 8.6x10^3uL (1.8-7.7) Lymphocytes # (Auto) 2.7x10^3/uL (1.0-4.8) Monocytes # (Auto) 1.2x10^3/uL (0.0-1.1) Eosinophils # (Auto) 0.0x10^3/uL (0.0-0.7) Basophils # (Auto) 0.0x10^3/uL (0.0-0.2) Sodium Level 134mmol/L (136-145) Potassium Level 4.0mmol/L (3.5-5.1) Chloride Level 98mmol/L (98-107) Carbon Dioxide Level 24mmol/L (21-32) Anion Gap 12 (6-14) Blood Urea Nitrogen 13mg/dL (7-20) Creatinine 0.8mg/dL (0.6-1.0) Estimated GFR (Cockcroft-Gault) 72.4 Glucose Level 122mg/dL (70-99) Calcium Level 8.6mg/dL (8.5-10.1) Total Bilirubin 0.7mg/dL (0.2-1.0) Direct Bilirubin 0.2mg/dL (0.0-0.2) Aspartate Amino Transf (AST/SGOT) 37U/L (15-37) Alanine Aminotransferase (ALT/SGPT) 60U/L (14-59) Alkaline Phosphatase 115U/L (46-116) Troponin I Quantitative 0.032ng/mL (0.000-0.055) 0.044ng/mL (0.000-0.055) LF-Rrd-B-Type Natriuretic Peptide 4912pg/mL (0-124) Total Protein 6.1g/dL (6.4-8.2) Albumin 3.1g/dL (3.4-5.0) Lipase 140U/L (73-393) Urine Collection Type Unknown Urine Color Yellow Urine Clarity Clear Urine pH 6.0 Urine Specific [place] 1.020 Urine Protein 30mg/dL (NEG-TRACE) Urine Glucose (UA) Negativemg/dL (NEG) Urine Ketones (Stick) Negativemg/dL (NEG) Urine Blood Negative (NEG) Urine Nitrite Negative (NEG) Urine Bilirubin Negative (NEG) Urine Urobilinogen Dipstick 4.0mg/dL (0.2 mg/dL) Urine Leukocyte Esterase Small (NEG) Urine RBC 0/HPF (0-2) Urine WBC 5-10/HPF (0-4) Urine Squamous Epithelial Cells Few/LPF Urine Bacteria 0/HPF (0-FEW) Urine Mucus Slight/LPF Iron Level 18ug/dL (50-170) Total Iron Binding Capacity 386ug/dL (250-450) Iron Saturation 5% (15-34) Ferritin 15ng/mL (8-252) Triglycerides Level 48mg/dL (0-150) Cholesterol Level 88mg/dL (0-200) LDL Cholesterol, Calculated 48mg/dL (0-100) VLDL Cholesterol, Calculated 10mg/dL (0-40) HDL Cholesterol 30mg/dL (40-60) Cholesterol/HDL Ratio 2.9 Vitamin B12 Level 271pg/mL (247-911) Serum Folate > 20.00ng/ml (3.2-20.0) Thyroid Stimulating Hormone (TSH) 2.375uIU/mL (0.358-3.74) Glucose (Fingerstick) 130mg/dL (70-99) Medications Current Medications Albuterol/ Ipratropium (Duoneb) 3 ml 1X ONCE NEB Last administered on 17:26; Start 04/30/16 at 17:00; Stop 04/30/16 at 17:01; Status DC Ondansetron HCl (Zofran) 4 mg PRN Q6HRS PRN IV NAUSEA/VOMITING; Start 04/30/16 at 20:45 Acetaminophen/ Hydrocodone Bitart (Lortab 5/325) 1 tab PRN Q4HRS PRN PO MILD PAIN; Start 04/30/16 at 20:45 Acetaminophen (Tylenol) 650 mg PRN Q6HRS PRN PO MILD PAIN / TEMP; Start at 20:45 Enoxaparin Sodium (Lovenox 40mg Syringe) 40 mg Q24H SQ Last administered on 23:40; Start 04/30/16 at 21:00 Albuterol Sulfate (Ventolin Neb Soln) 2.5 mg PRN Q4HRS PRN NEB SHORTNESS OF BREATH; Start 04/30/16 at 20:45 Furosemide (Lasix) 40 mg 1X ONCE IVP Last administered on 04/30/16 23:40; Start 04/30/16 at 21:30; Stop 04/30/16 at 21:31; Status DC Active Scripts Active Reported Potassium Chloride 10 Meq Tablet.er 10 Meq PO DAILY Furosemide 40 Mg Tablet 40 Mg PO DAILY Ambien (Zolpidem Tartrate) 10 Mg Tablet 10 Mg PO HS PRN Lumigan (Bimatoprost) 2.5 Ml Drops 2 Drop EACHEYE QHS Atorvastatin Calcium 10 Mg Tablet 10 Mg PO DAILY Losartan Potassium 25 Mg Tablet 25 Mg PO DAILY Metformin Hcl 500 Mg Tablet 1 Tab PO BID Vitals/I & O Vital Sign - Last 24 Hours 04/30/16 04/30/16 04/30/16 04/30/16 16:03 16:54 17:24 17:30 Temp 98.1 98.1 Pulse 106 104 100 Resp B/P 113/51 102/87 111/76 Pulse Ox 97 96 96 98 O2 Delivery Room Air Nasal Cannula Nasal Cannula Room Air O2 Flow Rate 2 2 04/30/16 04/30/16 04/30/16 04/30/16 18:24 19:24 20:12 20:54 Pulse 104 110 108 108 Resp B/P 110/67 107/69 105/74 110/76 Pulse Ox 96 96 96 96 O2 Delivery Nasal Cannula Nasal Cannula Nasal Cannula Nasal Cannula O2 Flow Rate 2 2 2 2 04/30/16 04/30/16 05/01/16 05/01/16 22:15 23:30 03:20 07:15 Temp 97.9 99.0 98.4 97.9 99.0 98.4 Pulse 118 101 103 Resp B/P 117/67 116/85 105/68 Pulse Ox 96 98 96 O2 Delivery Nasal Cannula Nasal Cannula Nasal Cannula Nasal Cannula O2 Flow Rate 2.0 2.0 2.0 2.0 05/01/16 05/01/16 05/01/16 08:00 08:21 10:59 Temp 98.1 98.1 Pulse 100 Resp 16 B/P 110/74 Pulse Ox 96 98 O2 Delivery Nasal Cannula Room Air Nasal Cannula O2 Flow Rate 2.0 2.0 Intake and Output 04/30/16 04/30/16 05/01/16 15:00 23:00 07:00 Intake Total 360 ml Output Total 350 ml Balance 10 ml SPENCER SANTIZO MD May 01, 2016 12:49
[2016-05-01] MEDS ORDERED: LOSARTAN POTASSIUM 25 MG TABLET. PO SCH (13:00)
[2016-05-01] MEDS: POTASSIUM CHLORIDE 10 MEQ TABLET.ER. PO SCH (13:08)
[2016-05-01] MEDS: INSULIN ASPART 300 UNITS/3 ML INSULN.PEN SQ SCH (17:00)
[2016-05-01] MEDS ORDERED: CONTRAST GIVEN MC PRN (17:30)
[2016-05-01] MEDS ORDERED: IOHEXOL 300 MG/ML 75 ML VIAL IV ONE (17:30)
--- NOTE | 2016-05-01 17:37 | CARD ---
APPROVED REPORT EXAM: Two-dimensional and M-mode echocardiogram with Doppler and color Doppler. Other Information Quality : Excellent INDICATION Congestive Heart Failure 2D DIMENSIONS RVDd4.2 (2.9-3.5cm)Left Atrium(2D)3.5 (1.6-4.0cm) IVSd1.0 (0.7-1.1cm)Aortic Root(2D)2.5 (2.0-3.7cm) LVDd3.2 (3.9-5.9cm)LVOT Diameter1.9 (1.8-2.4cm) PWd1.2 (0.7-1.1cm)LVDs1.8 (2.5-4.0cm) FS (%) 30.0 %SV31.9 ml LVEF(%)60.0 (>50%) Aortic Valve AoV Peak Cuauhtemoc.128.7cm/sAoV VTI14.4cm AO Peak GR.6.6mmHgLVOT Peak Cuauhtemoc.86.8cm/s LVOT VTI 9.93cmAO Mean GR.3mmHg MINNIE (VMAX)1.93be6LOZ (VTI)1.91cm2 Mitral Valve MV E Hbppmsls64.9cm/sMV DECEL [id number] MV A Znosqqic77.7cm/sMV [id number] E/A Ratio0.6MVA (PHT)3.35cm2 TDI E/Medial E'9.1 Tricuspid Valve TR P. Jrubmtqw920gy/sRAP [id number] TR Peak Gr.29ypBfWCXY77zxSq Pulmonary Vein S1 Xxjebboq70.6cm/sD2 Wvlkklur02.8cm/s PVa xtjwksbw29yqkh LEFT VENTRICLE The left ventricle is normal size. There is mild concentric left ventricular hypertrophy. The left ve ntricular systolic function is normal and the ejection fraction is within normal range. The Ejection Fraction is 60%. There is normal LV segmental wall motion. There is a flattened septum consistent wit h right ventricle volume and pressure overload. Transmitral Doppler flow pattern is Grade I-abnormal relaxation pattern. RIGHT VENTRICLE The right ventricle is dilated. Systolic function of the RV is severely reduced. ATRIA The left atrium size is normal. The right atrium is severely dilated. The interatrial septum is intac t with no evidence for an atrial septal defect or patent foramen ovale as noted on 2-D or Doppler jaleel ging. AORTIC VALVE The aortic valve is calcified but opens well. Doppler and Color Flow revealed no significant aortic r egurgitation. There is no significant aortic valvular stenosis. MITRAL VALVE The mitral valve is normal in structure There is no evidence of mitral valve prolapse. There is no mi tral valve stenosis. Doppler and Color-flow revealed trace mitral regurgitation. TRICUSPID VALVE The tricuspid valve is normal in structure Doppler and Color Flow revealed severe tricuspid regurgita tion. There is severe pulmonary hypertension. The PA pressure was estimated at 91 mmHg. There is no t ricuspid valve stenosis. PULMONIC VALVE The pulmonary valve is normal in structure Doppler and Color Flow revealed mild pulmonic valvular reg urgitation. There is no pulmonic valvular stenosis. GREAT VESSELS The aortic root is normal in size. The ascending aorta is normal in size. The IVC is dilated and jovanny apses <50% with inspiration. PERICARDIAL EFFUSION There is a trace circumferential pericardial effusion. Critical Notification Critical Value: No <Conclusion> The left ventricular systolic function is normal and the ejection fraction is within normal range. The Ejection Fraction is 60%. There is normal LV segmental wall motion. There is a flattened septum consistent with right ventricle volume and pressure overload. Transmitral Doppler flow pattern is Grade I-abnormal relaxation pattern. There is mild concentric left ventricular hypertrophy. Systolic function of the RV is severely reduced. The right ventricle is dilated. The left atrium size is normal. The right atrium is severely dilated. The interatrial septum is intact with no evidence for an atrial septal defect or patent foramen ovale as noted on 2-D or Doppler imaging. The aortic valve is calcified but opens well. Doppler and Color Flow revealed no significant aortic regurgitation. Doppler and Color-flow revealed trace mitral regurgitation. The mitral valve is normal in structure Doppler and Color Flow revealed severe tricuspid regurgitation. There is severe pulmonary hypertension. The PA pressure was estimated at 91 mmHg. Doppler and Color Flow revealed mild pulmonic valvular regurgitation. The IVC is dilated and collapses <50% with inspiration. There is a trace circumferential pericardial effusion. No thrombus seen in any of the chambers
--- NOTE | 2016-05-01 18:00 | RAD ---
PROCEDURE CT arteriogram of the chest HISTORY soa, pulmonary htn, [id number] 75ml, no priors TECHNIQUE CT arteriogram of the chest was done using 75 mL Omnipaque 300 contrast. Sagittal and coronal MIP images were reconstructed. One or more of the following individualized dose reduction techniques were utilized for this examination: 1. Automated exposure control; 2. Adjustment of the mA and/or kV according to patient size; 3. Use of iterative reconstruction technique.One or more of the following individualized dose reduction techniques were utilized for this examination: 1. Automated exposure control; 2. Adjustment of the mA and/or kV according to patient size; 3. Use of iterative reconstruction technique. COMPARISON None FINDINGS Thyroid is homogeneous. There is no mediastinal adenopathy. There are small bilateral pleural effusions. The visualized portions of the liver is normal. There is mild fluid about the spleen can't at the tail of the pancreas. There is indistinctness of the spleen with a linear lucency extending through the spleen which can be a splenic injury or a splenic laceration correlation with trauma would be of benefit. This is low-density change in the spleen is more linear than a typical infarct. A left rib fracture is not identified. There are granulomatous calcifications in the mediastinum. Aorta is unremarkable. The study is negative for evidence of a pulmonary embolus. There is atelectasis in the lower lobes. There is a subpleural pulmonary nodule in the right lower lobe. Follow-up study when the patient clinically improves would be of benefit. There is atrophy at the upper pole of the right kidney. There is a partially calcified splenic artery aneurysm. There is also small amount of fluid about the liver. CT of the abdomen could be of benefit. IMPRESSION 1. Negative for pulmonary embolus. 2.Bilateral effusions. 3.Atelectasis in the lower lobes. 4. Subpleural pulmonary nodule right lower lobe. 5. Fluid about the spleen with irregularity of the spleen possibly a splenic laceration clinical correlation would be of benefit. 6. Indistinctness at the tail of pancreas which could be secondary to the splenic injury are pancreatitis. 7. Splenic artery aneurysm 8. Atrophy upper pole left kidney Electronically signed by: Jose G Isaac MD (May 01, 2016 17:59:16)
[2016-05-01 19:57] LABS: BASO % 0 % (0-3); EOS % 1 % (0-3); HEMATOCRIT 29.3 % (36.0-47.0); HEMOGLOBIN 9.3 g/dL (12.0-15.5); LYMPH # 2.6 x10^3/uL (1.0-4.8); LYMPH % 24 % (24-48); MEAN CORPUSCULAR HEMOGLOBIN 24 pg (25-35); MEAN CORPUSCULAR HGB CONC 32 g/dL (31-37); MEAN CORPUSCULAR VOLUME 76 fL (79-100); MONO % 7 % (0-9); NEUT % 68 % (31-73); PLATELET COUNT 349 x10^3/uL (140-400); RED BLOOD COUNT 3.84 x10^6/uL (3.50-5.40); RED CELL DISTRIBUTION WIDTH 17.1 % (11.5-14.5)
[2016-05-01 20:05] LABS: INR 1.2 (0.8-1.1); PROTHROMBIN TIME PATIENT 14.6 SEC (11.7-14.0)
[2016-05-01 20:07] LABS: CALCIUM 8.6 mg/dL (8.5-10.1); CREATININE 1.1 mg/dL (0.6-1.0); GFR 50.2
[2016-05-01] MEDS: ATORVASTATIN CALCIUM 10 MG TABLET. PO SCH (20:39)
[2016-05-01] MEDS: ENOXAPARIN 40 MG/0.4 ML DISP.SYRIN. SQ SCH (20:40)
[2016-05-01] MEDS: ZOLPIDEM 5 MG TABLET. PO PRN (20:45)
[2016-05-01] MEDS: LATANOPROST 0.005% OPHTH SOLUTION 2.5ML BOTTLE. OU SCH (21:00)
[2016-05-02 04:30] VITALS: BP 106/73
[2016-05-02 07:19] VITALS: BP 115/71
[2016-05-02] MEDS: INSULIN ASPART 300 UNITS/3 ML INSULN.PEN SQ SCH ×3 (08:00→18:43)
[2016-05-02] MEDS: POTASSIUM CHLORIDE 10 MEQ TABLET.ER. PO SCH (08:33)
[2016-05-02] MEDS: FUROSEMIDE 40 MG TABLET PO SCH (08:33)
--- NOTE | 2016-05-02 10:09 | PDOC ---
PROGRESS NOTES Subjective Subjective Patient is awake sitting up in the bed. She complains of feeling winded but denies any other cardiac symptoms. Objective Objective Vital Signs Date Time Temp Pulse Resp B/P Pulse Ox O2 Delivery O2 Flow Rate FiO2 05/02/16 07:19 98.2 114 18 115/71 95 Room Air 98.2 05/01/16 23:10 Intake and Output 05/02/16 07:00 Intake Total 1320 ml Output Total 1850 ml Balance -530 ml Intake Oral 1320 ml Output Urine Total 1850 ml # Voids 2 Physical Exam Heart: Regular rate, Normal S1, Normal S2 Extremities: No clubbing, No cyanosis General: Alert, Oriented X3, Cooperative, No acute distress HEENT: Atraumatic, Mucous membr. moist/pink Lungs: Clear to auscultation, Normal air movement Skin: No rashes, No breakdown Assessment Assessment Pulmonary HTN: this may be the underlying cause of the pt's problems with resulting R Heart Failure. Pt will need lifelong pulmonary care. The PA pressures will need actual measurement by R Heart Cath at some point. Possible Splenic tear: being evaluated by surgery. Case discussed with Dr Vogel. Medical Problems: (1) Edema Status: Acute (2) Fatigue Status: Acute (3) Malaise Status: Acute (4) Shortness of breath Status: Acute Plan Plan of Care Patient has a splenic laceration and most probably pulmonary HTN. Comment Review of Relevant I have reviewed the following items aldair (where applicable) has been applied. Labs Laboratory Tests Test 04/30/16 16:37 04/30/16 17:45 05/01/16 03:22 05/01/16 07:46 White Blood Count 12.6x10^3/uL (4.0-11.0) Red Blood Count 4.11x10^6/uL (3.50-5.40) Hemoglobin 9.7g/dL (12.0-15.5) Hematocrit 31.6% (36.0-47.0) Mean Corpuscular Volume 77fL (79-100) Mean Corpuscular Hemoglobin 24pg (25-35) Mean Corpuscular Hemoglobin Concent 31g/dL (31-37) Red Cell Distribution Width 17.1% (11.5-14.5) Platelet Count 383x10^3/uL (140-400) Neutrophils (%) (Auto) 68% (31-73) Lymphocytes (%) (Auto) 22% (24-48) Monocytes (%) (Auto) 10% (0-9) Eosinophils (%) (Auto) 0% (0-3) Basophils (%) (Auto) 0% (0-3) Neutrophils # (Auto) 8.6x10^3uL (1.8-7.7) Lymphocytes # (Auto) 2.7x10^3/uL (1.0-4.8) Monocytes # (Auto) 1.2x10^3/uL (0.0-1.1) Eosinophils # (Auto) 0.0x10^3/uL (0.0-0.7) Basophils # (Auto) 0.0x10^3/uL (0.0-0.2) Sodium Level 134mmol/L (136-145) Potassium Level 4.0mmol/L (3.5-5.1) Chloride Level 98mmol/L (98-107) Carbon Dioxide Level 24mmol/L (21-32) Anion Gap 12 (6-14) Blood Urea Nitrogen 13mg/dL (7-20) Creatinine 0.8mg/dL (0.6-1.0) Estimated GFR (Cockcroft-Gault) 72.4 Glucose Level 122mg/dL (70-99) Calcium Level 8.6mg/dL (8.5-10.1) Total Bilirubin 0.7mg/dL (0.2-1.0) Direct Bilirubin 0.2mg/dL (0.0-0.2) Aspartate Amino Transf (AST/SGOT) 37U/L (15-37) Alanine Aminotransferase (ALT/SGPT) 60U/L (14-59) Alkaline Phosphatase 115U/L (46-116) Troponin I Quantitative 0.032ng/mL (0.000-0.055) 0.044ng/mL (0.000-0.055) DQ-Cbw-Z-Type Natriuretic Peptide 4912pg/mL (0-124) Total Protein 6.1g/dL (6.4-8.2) Albumin 3.1g/dL (3.4-5.0) Lipase 140U/L (73-393) Urine Collection Type Unknown Urine Color Yellow Urine Clarity Clear Urine pH 6.0 Urine Specific [place] 1.020 Urine Protein 30mg/dL (NEG-TRACE) Urine Glucose (UA) Negativemg/dL (NEG) Urine Ketones (Stick) Negativemg/dL (NEG) Urine Blood Negative (NEG) Urine Nitrite Negative (NEG) Urine Bilirubin Negative (NEG) Urine Urobilinogen Dipstick 4.0mg/dL (0.2 mg/dL) Urine Leukocyte Esterase Small (NEG) Urine RBC 0/HPF (0-2) Urine WBC 5-10/HPF (0-4) Urine Squamous Epithelial Cells Few/LPF Urine Bacteria 0/HPF (0-FEW) Urine Mucus Slight/LPF Iron Level 18ug/dL (50-170) Total Iron Binding Capacity 386ug/dL (250-450) Iron Saturation 5% (15-34) Ferritin 15ng/mL (8-252) Triglycerides Level 48mg/dL (0-150) Cholesterol Level 88mg/dL (0-200) LDL Cholesterol, Calculated 48mg/dL (0-100) VLDL Cholesterol, Calculated 10mg/dL (0-40) HDL Cholesterol 30mg/dL (40-60) Cholesterol/HDL Ratio 2.9 Vitamin B12 Level 271pg/mL (247-911) Serum Folate > 20.00ng/ml (3.2-20.0) Thyroid Stimulating Hormone (TSH) 2.375uIU/mL (0.358-3.74) Glucose (Fingerstick) 130mg/dL (70-99) Test 05/01/16 10:58 05/01/16 16:42 05/01/16 19:45 05/01/16 20:52 Glucose (Fingerstick) 194mg/dL (70-99) 123mg/dL (70-99) 154mg/dL (70-99) White Blood Count 11.0x10^3/uL (4.0-11.0) Red Blood Count 3.84x10^6/uL (3.50-5.40) Hemoglobin 9.3g/dL (12.0-15.5) Hematocrit 29.3% (36.0-47.0) Mean Corpuscular Volume 76fL (79-100) Mean Corpuscular Hemoglobin 24pg (25-35) Mean Corpuscular Hemoglobin Concent 32g/dL (31-37) Red Cell Distribution Width 17.1% (11.5-14.5) Platelet Count 349x10^3/uL (140-400) Neutrophils (%) (Auto) 68% (31-73) Lymphocytes (%) (Auto) 24% (24-48) Monocytes (%) (Auto) 7% (0-9) Eosinophils (%) (Auto) 1% (0-3) Basophils (%) (Auto) 0% (0-3) Neutrophils # (Auto) 7.5x10^3uL (1.8-7.7) Lymphocytes # (Auto) 2.6x10^3/uL (1.0-4.8) Monocytes # (Auto) 0.8x10^3/uL (0.0-1.1) Eosinophils # (Auto) 0.1x10^3/uL (0.0-0.7) Basophils # (Auto) 0.0x10^3/uL (0.0-0.2) Prothrombin Time 14.6SEC (11.7-14.0) Prothromb Time International Ratio 1.2 (0.8-1.1) Sodium Level 133mmol/L (136-145) Potassium Level 4.0mmol/L (3.5-5.1) Chloride Level 98mmol/L (98-107) Carbon Dioxide Level 25mmol/L (21-32) Anion Gap 10 (6-14) Blood Urea Nitrogen 15mg/dL (7-20) Creatinine 1.1mg/dL (0.6-1.0) Estimated GFR (Cockcroft-Gault) 50.2 Glucose Level 179mg/dL (70-99) Calcium Level 8.6mg/dL (8.5-10.1) Test 05/02/16 08:36 Glucose (Fingerstick) 144mg/dL (70-99) Laboratory Tests Test 05/01/16 10:58 05/01/16 16:42 05/01/16 19:45 05/01/16 20:52 Glucose (Fingerstick) 194mg/dL (70-99) 123mg/dL (70-99) 154mg/dL (70-99) White Blood Count 11.0x10^3/uL (4.0-11.0) Red Blood Count 3.84x10^6/uL (3.50-5.40) Hemoglobin 9.3g/dL (12.0-15.5) Hematocrit 29.3% (36.0-47.0) Mean Corpuscular Volume 76fL (79-100) Mean Corpuscular Hemoglobin 24pg (25-35) Mean Corpuscular Hemoglobin Concent 32g/dL (31-37) Red Cell Distribution Width 17.1% (11.5-14.5) Platelet Count 349x10^3/uL (140-400) Neutrophils (%) (Auto) 68% (31-73) Lymphocytes (%) (Auto) 24% (24-48) Monocytes (%) (Auto) 7% (0-9) Eosinophils (%) (Auto) 1% (0-3) Basophils (%) (Auto) 0% (0-3) Neutrophils # (Auto) 7.5x10^3uL (1.8-7.7) Lymphocytes # (Auto) 2.6x10^3/uL (1.0-4.8) Monocytes # (Auto) 0.8x10^3/uL (0.0-1.1) Eosinophils # (Auto) 0.1x10^3/uL (0.0-0.7) Basophils # (Auto) 0.0x10^3/uL (0.0-0.2) Prothrombin Time 14.6SEC (11.7-14.0) Prothromb Time International Ratio 1.2 (0.8-1.1) Sodium Level 133mmol/L (136-145) Potassium Level 4.0mmol/L (3.5-5.1) Chloride Level 98mmol/L (98-107) Carbon Dioxide Level 25mmol/L (21-32) Anion Gap 10 (6-14) Blood Urea Nitrogen 15mg/dL (7-20) Creatinine 1.1mg/dL (0.6-1.0) Estimated GFR (Cockcroft-Gault) 50.2 Glucose Level 179mg/dL (70-99) Calcium Level 8.6mg/dL (8.5-10.1) Test 05/02/16 08:36 Glucose (Fingerstick) 144mg/dL (70-99) Microbiology 04/30/16 Urine Culture - Preliminary, Resulted 04/30/16 Urine Culture Result 1 (DENA) - Preliminary, Resulted Medications Current Medications Albuterol/ Ipratropium (Duoneb) 3 ml 1X ONCE NEB Last administered on 17:26; Start 04/30/16 at 17:00; Stop 04/30/16 at 17:01; Status DC Ondansetron HCl (Zofran) 4 mg PRN Q6HRS PRN IV NAUSEA/VOMITING; Start 04/30/16 at 20:45 Acetaminophen/ Hydrocodone Bitart (Lortab 5/325) 1 tab PRN Q4HRS PRN PO MILD PAIN; Start 04/30/16 at 20:45 Acetaminophen (Tylenol) 650 mg PRN Q6HRS PRN PO MILD PAIN / TEMP; Start at 20:45 Enoxaparin Sodium (Lovenox 40mg Syringe) 40 mg Q24H SQ Last administered on 20:40; Start 04/30/16 at 21:00 Albuterol Sulfate (Ventolin Neb Soln) 2.5 mg PRN Q4HRS PRN NEB SHORTNESS OF BREATH Last administered on 05/01/16 21:27; Start 04/30/16 at 20:45 Furosemide (Lasix) 40 mg 1X ONCE IVP Last administered on 04/30/16 23:40; Start 04/30/16 at 21:30; Stop 04/30/16 at 21:31; Status DC Atorvastatin Calcium (Lipitor) 10 mg QHS PO Last administered on 05/01/16 20: 39; Start 05/01/16 at 21:00 Furosemide (Lasix) 40 mg DAILY PO Last administered on 05/02/16 08:33; Start 05/02/16 at 09:00 Losartan Potassium (Cozaar) 25 mg DAILY PO ; Start 05/01/16 at 13:00; Stop 05/01 at 17:55; Status DC Latanoprost (Xalatan) 1 drop QHS OU ; Start 05/01/16 at 21:00 Potassium Chloride (Klor-Con) 10 meq DAILYWBKFT PO Last administered on 08:33; Start 05/01/16 at 13:00 Zolpidem Tartrate (Ambien) 5 mg PRN QHS PRN PO INSOMNIA Last administered on t 20:45; Start 05/01/16 at 12:45 Insulin Aspart (Novolog) 0-7 UNITS TIDWMEALS SQ ; Start 05/01/16 at 17:00 Dextrose 12.5 gm PRN Q15MIN PRN IV SEE COMMENTS; Start 05/01/16 at 12:45 Iohexol (Omnipaque 300 Mg/ml) 75 ml 1X ONCE IV ; Start 05/01/16 at 17:30; Stop 05/01/16 at 17:31; Status DC Info (Do NOT chart on this entry -- for MONITORING) 1 each PRN DAILY PRN MC SEE COMMENTS; Start 05/01/16 at 17:30; Stop 05/03/16 at 17:29 Active Scripts Active Reported Potassium Chloride 10 Meq Tablet.er 10 Meq PO DAILY Furosemide 40 Mg Tablet 40 Mg PO DAILY Ambien (Zolpidem Tartrate) 10 Mg Tablet 10 Mg PO HS PRN Lumigan (Bimatoprost) 2.5 Ml Drops 2 Drop EACHEYE QHS Atorvastatin Calcium 10 Mg Tablet 10 Mg PO DAILY Losartan Potassium 25 Mg Tablet 25 Mg PO DAILY Metformin Hcl 500 Mg Tablet 1 Tab PO BID Vitals/I & O Vital Sign - Last 24 Hours 05/01/16 05/01/16 05/01/16 05/01/16 10:59 13:00 14:13 15:18 Temp 98.1 98.3 98.1 98.3 Pulse 100 112 106 104 Resp 16 18 B/P 110/74 98/69 98/64 107/65 Pulse Ox 98 O2 Delivery Nasal Cannula Room Air O2 Flow Rate 2.0 05/01/16 05/01/16 05/01/16 05/01/16 19:20 20:00 21:28 23:10 Temp 97.5 97.8 97.5 97.8 Pulse 121 127 Resp 18 18 B/P 129/84 146/89 Pulse Ox 95 98 99 O2 Delivery Room Air Room Air Room Air Room Air O2 Flow Rate 05/02/16 05/02/16 05/02/16 03:00 04:30 07:19 Temp 98.1 98.2 98.1 98.2 Pulse 98 106 114 Resp 18 18 B/P 106/73 115/71 Pulse Ox 93 95 O2 Delivery Room Air Room Air Intake and Output 05/01/16 05/01/16 05/02/16 15:00 23:00 07:00 Intake Total 240 ml 600 ml 480 ml Output Total 450 ml 600 ml 800 ml Balance -210 ml 0 ml -320 ml NANCY MUNOZ MD May 02, 2016 10:09
[2016-05-02 10:48] VITALS: BP 112/75
--- NOTE | 2016-05-02 11:37 | PDOC ---
PROGRESS NOTES Chief Complaint Chief Complaint Acute hypoxic respir failure ASSESSMENT AND PLAN: 1. Primary pulm HTN: severe pA 91. pulm consult. 1. CHF: 2/2 above. responded well to diuresis. awaiting cardiology input 2. DM2: well controlled; hold metformin for now; ISS 3. CKD2: no acute issues 4. Anemia: microcytic. iron labs c/w severe iron deficiency. replete PO. will need GI w/u on O/P basis Vitals Vitals Vital Signs Date Time Temp Pulse Resp B/P Pulse Ox O2 Delivery O2 Flow Rate FiO2 05/02/16 10:48 97.8 110 20 112/75 96 Room Air 97.8 05/01/16 23:10 Physical Exam General: Alert, Oriented X3, Cooperative, No acute distress Heart: Regular rate Lungs: Clear Abdomen: Normal bowel sounds, Soft, No tenderness Extremities: No cyanosis, No edema Skin: No rashes Labs LABS Laboratory Tests Test 05/01/16 16:42 05/01/16 19:45 05/01/16 20:52 05/02/16 08:36 Glucose (Fingerstick) 123mg/dL (70-99) 154mg/dL (70-99) 144mg/dL (70-99) White Blood Count 11.0x10^3/uL (4.0-11.0) Red Blood Count 3.84x10^6/uL (3.50-5.40) Hemoglobin 9.3g/dL (12.0-15.5) Hematocrit 29.3% (36.0-47.0) Mean Corpuscular Volume 76fL (79-100) Mean Corpuscular Hemoglobin 24pg (25-35) Mean Corpuscular Hemoglobin Concent 32g/dL (31-37) Red Cell Distribution Width 17.1% (11.5-14.5) Platelet Count 349x10^3/uL (140-400) Neutrophils (%) (Auto) 68% (31-73) Lymphocytes (%) (Auto) 24% (24-48) Monocytes (%) (Auto) 7% (0-9) Eosinophils (%) (Auto) 1% (0-3) Basophils (%) (Auto) 0% (0-3) Neutrophils # (Auto) 7.5x10^3uL (1.8-7.7) Lymphocytes # (Auto) 2.6x10^3/uL (1.0-4.8) Monocytes # (Auto) 0.8x10^3/uL (0.0-1.1) Eosinophils # (Auto) 0.1x10^3/uL (0.0-0.7) Basophils # (Auto) 0.0x10^3/uL (0.0-0.2) Prothrombin Time 14.6SEC (11.7-14.0) Prothromb Time International Ratio 1.2 (0.8-1.1) Sodium Level 133mmol/L (136-145) Potassium Level 4.0mmol/L (3.5-5.1) Chloride Level 98mmol/L (98-107) Carbon Dioxide Level 25mmol/L (21-32) Anion Gap 10 (6-14) Blood Urea Nitrogen 15mg/dL (7-20) Creatinine 1.1mg/dL (0.6-1.0) Estimated GFR (Cockcroft-Gault) 50.2 Glucose Level 179mg/dL (70-99) Calcium Level 8.6mg/dL (8.5-10.1) Review of Systems Review of Systems no pain, no SOB SPENCER SANTIZO MD May 02, 2016 11:37
--- NOTE | 2016-05-02 11:54 | PDOC ---
SURGICAL PROGRESS NOTE Subjective Brief Surgery Consult 61 yo F with c/o fatigue and SOA with exertion CT Chest concerning for splenic laceration no known trauma I/R splenic laceration cont w/u and supportive care no surgical plans currently Thanks for consult! [id number] Vital Signs Vital Signs Date Time Temp Pulse Resp B/P Pulse Ox O2 Delivery O2 Flow Rate FiO2 05/02/16 10:48 97.8 110 20 112/75 96 Room Air 97.8 05/01/16 23:10 I&O Intake and Output 05/02/16 07:00 Intake Total 1320 ml Output Total 1850 ml Balance -530 ml Intake Oral 1320 ml Output Urine Total 1850 ml # Voids 2 Labs Laboratory Tests Test 04/30/16 16:37 04/30/16 17:45 05/01/16 03:22 05/01/16 07:46 White Blood Count 12.6x10^3/uL (4.0-11.0) Red Blood Count 4.11x10^6/uL (3.50-5.40) Hemoglobin 9.7g/dL (12.0-15.5) Hematocrit 31.6% (36.0-47.0) Mean Corpuscular Volume 77fL (79-100) Mean Corpuscular Hemoglobin 24pg (25-35) Mean Corpuscular Hemoglobin Concent 31g/dL (31-37) Red Cell Distribution Width 17.1% (11.5-14.5) Platelet Count 383x10^3/uL (140-400) Neutrophils (%) (Auto) 68% (31-73) Lymphocytes (%) (Auto) 22% (24-48) Monocytes (%) (Auto) 10% (0-9) Eosinophils (%) (Auto) 0% (0-3) Basophils (%) (Auto) 0% (0-3) Neutrophils # (Auto) 8.6x10^3uL (1.8-7.7) Lymphocytes # (Auto) 2.7x10^3/uL (1.0-4.8) Monocytes # (Auto) 1.2x10^3/uL (0.0-1.1) Eosinophils # (Auto) 0.0x10^3/uL (0.0-0.7) Basophils # (Auto) 0.0x10^3/uL (0.0-0.2) Sodium Level 134mmol/L (136-145) Potassium Level 4.0mmol/L (3.5-5.1) Chloride Level 98mmol/L (98-107) Carbon Dioxide Level 24mmol/L (21-32) Anion Gap 12 (6-14) Blood Urea Nitrogen 13mg/dL (7-20) Creatinine 0.8mg/dL (0.6-1.0) Estimated GFR (Cockcroft-Gault) 72.4 Glucose Level 122mg/dL (70-99) Calcium Level 8.6mg/dL (8.5-10.1) Total Bilirubin 0.7mg/dL (0.2-1.0) Direct Bilirubin 0.2mg/dL (0.0-0.2) Aspartate Amino Transf (AST/SGOT) 37U/L (15-37) Alanine Aminotransferase (ALT/SGPT) 60U/L (14-59) Alkaline Phosphatase 115U/L (46-116) Troponin I Quantitative 0.032ng/mL (0.000-0.055) 0.044ng/mL (0.000-0.055) OP-Esu-Q-Type Natriuretic Peptide 4912pg/mL (0-124) Total Protein 6.1g/dL (6.4-8.2) Albumin 3.1g/dL (3.4-5.0) Lipase 140U/L (73-393) Urine Collection Type Unknown Urine Color Yellow Urine Clarity Clear Urine pH 6.0 Urine Specific [place] 1.020 Urine Protein 30mg/dL (NEG-TRACE) Urine Glucose (UA) Negativemg/dL (NEG) Urine Ketones (Stick) Negativemg/dL (NEG) Urine Blood Negative (NEG) Urine Nitrite Negative (NEG) Urine Bilirubin Negative (NEG) Urine Urobilinogen Dipstick 4.0mg/dL (0.2 mg/dL) Urine Leukocyte Esterase Small (NEG) Urine RBC 0/HPF (0-2) Urine WBC 5-10/HPF (0-4) Urine Squamous Epithelial Cells Few/LPF Urine Bacteria 0/HPF (0-FEW) Urine Mucus Slight/LPF Iron Level 18ug/dL (50-170) Total Iron Binding Capacity 386ug/dL (250-450) Iron Saturation 5% (15-34) Ferritin 15ng/mL (8-252) Triglycerides Level 48mg/dL (0-150) Cholesterol Level 88mg/dL (0-200) LDL Cholesterol, Calculated 48mg/dL (0-100) VLDL Cholesterol, Calculated 10mg/dL (0-40) HDL Cholesterol 30mg/dL (40-60) Cholesterol/HDL Ratio 2.9 Vitamin B12 Level 271pg/mL (247-911) Serum Folate > 20.00ng/ml (3.2-20.0) Thyroid Stimulating Hormone (TSH) 2.375uIU/mL (0.358-3.74) Glucose (Fingerstick) 130mg/dL (70-99) Test 05/01/16 10:58 05/01/16 16:42 05/01/16 19:45 05/01/16 20:52 Glucose (Fingerstick) 194mg/dL (70-99) 123mg/dL (70-99) 154mg/dL (70-99) White Blood Count 11.0x10^3/uL (4.0-11.0) Red Blood Count 3.84x10^6/uL (3.50-5.40) Hemoglobin 9.3g/dL (12.0-15.5) Hematocrit 29.3% (36.0-47.0) Mean Corpuscular Volume 76fL (79-100) Mean Corpuscular Hemoglobin 24pg (25-35) Mean Corpuscular Hemoglobin Concent 32g/dL (31-37) Red Cell Distribution Width 17.1% (11.5-14.5) Platelet Count 349x10^3/uL (140-400) Neutrophils (%) (Auto) 68% (31-73) Lymphocytes (%) (Auto) 24% (24-48) Monocytes (%) (Auto) 7% (0-9) Eosinophils (%) (Auto) 1% (0-3) Basophils (%) (Auto) 0% (0-3) Neutrophils # (Auto) 7.5x10^3uL (1.8-7.7) Lymphocytes # (Auto) 2.6x10^3/uL (1.0-4.8) Monocytes # (Auto) 0.8x10^3/uL (0.0-1.1) Eosinophils # (Auto) 0.1x10^3/uL (0.0-0.7) Basophils # (Auto) 0.0x10^3/uL (0.0-0.2) Prothrombin Time 14.6SEC (11.7-14.0) Prothromb Time International Ratio 1.2 (0.8-1.1) Sodium Level 133mmol/L (136-145) Potassium Level 4.0mmol/L (3.5-5.1) Chloride Level 98mmol/L (98-107) Carbon Dioxide Level 25mmol/L (21-32) Anion Gap 10 (6-14) Blood Urea Nitrogen 15mg/dL (7-20) Creatinine 1.1mg/dL (0.6-1.0) Estimated GFR (Cockcroft-Gault) 50.2 Glucose Level 179mg/dL (70-99) Calcium Level 8.6mg/dL (8.5-10.1) Test 05/02/16 08:36 Glucose (Fingerstick) 144mg/dL (70-99) Laboratory Tests Test 05/01/16 16:42 05/01/16 19:45 05/01/16 20:52 05/02/16 08:36 Glucose (Fingerstick) 123mg/dL (70-99) 154mg/dL (70-99) 144mg/dL (70-99) White Blood Count 11.0x10^3/uL (4.0-11.0) Red Blood Count 3.84x10^6/uL (3.50-5.40) Hemoglobin 9.3g/dL (12.0-15.5) Hematocrit 29.3% (36.0-47.0) Mean Corpuscular Volume 76fL (79-100) Mean Corpuscular Hemoglobin 24pg (25-35) Mean Corpuscular Hemoglobin Concent 32g/dL (31-37) Red Cell Distribution Width 17.1% (11.5-14.5) Platelet Count 349x10^3/uL (140-400) Neutrophils (%) (Auto) 68% (31-73) Lymphocytes (%) (Auto) 24% (24-48) Monocytes (%) (Auto) 7% (0-9) Eosinophils (%) (Auto) 1% (0-3) Basophils (%) (Auto) 0% (0-3) Neutrophils # (Auto) 7.5x10^3uL (1.8-7.7) Lymphocytes # (Auto) 2.6x10^3/uL (1.0-4.8) Monocytes # (Auto) 0.8x10^3/uL (0.0-1.1) Eosinophils # (Auto) 0.1x10^3/uL (0.0-0.7) Basophils # (Auto) 0.0x10^3/uL (0.0-0.2) Prothrombin Time 14.6SEC (11.7-14.0) Prothromb Time International Ratio 1.2 (0.8-1.1) Sodium Level 133mmol/L (136-145) Potassium Level 4.0mmol/L (3.5-5.1) Chloride Level 98mmol/L (98-107) Carbon Dioxide Level 25mmol/L (21-32) Anion Gap 10 (6-14) Blood Urea Nitrogen 15mg/dL (7-20) Creatinine 1.1mg/dL (0.6-1.0) Estimated GFR (Cockcroft-Gault) 50.2 Glucose Level 179mg/dL (70-99) Calcium Level 8.6mg/dL (8.5-10.1) Problem List Problems Medical Problems: (1) Edema Status: Acute (2) Fatigue Status: Acute (3) Malaise Status: Acute (4) Shortness of breath Status: Acute Problems: NASIR MATHEWS MD May 02, 2016 11:54
[2016-05-02] MEDS ORDERED: IV NORMAL SALINE 500ML BAG 500 ML IV ONE (14:15)
[2016-05-02 14:31] VITALS: BP 114/79
--- NOTE | 2016-05-02 15:30 | PDOC ---
PULMONARY PROGRESS NOTES Vitals Vital Signs Date Time Temp Pulse Resp B/P Pulse Ox O2 Delivery O2 Flow Rate FiO2 05/02/16 14:31 98.0 97 18 114/79 97 Room Air 98.0 05/01/16 23:10 Lungs: Clear Labs Laboratory Tests Test 04/30/16 16:37 04/30/16 17:45 05/01/16 03:22 05/01/16 07:46 White Blood Count 12.6x10^3/uL (4.0-11.0) Red Blood Count 4.11x10^6/uL (3.50-5.40) Hemoglobin 9.7g/dL (12.0-15.5) Hematocrit 31.6% (36.0-47.0) Mean Corpuscular Volume 77fL (79-100) Mean Corpuscular Hemoglobin 24pg (25-35) Mean Corpuscular Hemoglobin Concent 31g/dL (31-37) Red Cell Distribution Width 17.1% (11.5-14.5) Platelet Count 383x10^3/uL (140-400) Neutrophils (%) (Auto) 68% (31-73) Lymphocytes (%) (Auto) 22% (24-48) Monocytes (%) (Auto) 10% (0-9) Eosinophils (%) (Auto) 0% (0-3) Basophils (%) (Auto) 0% (0-3) Neutrophils # (Auto) 8.6x10^3uL (1.8-7.7) Lymphocytes # (Auto) 2.7x10^3/uL (1.0-4.8) Monocytes # (Auto) 1.2x10^3/uL (0.0-1.1) Eosinophils # (Auto) 0.0x10^3/uL (0.0-0.7) Basophils # (Auto) 0.0x10^3/uL (0.0-0.2) Sodium Level 134mmol/L (136-145) Potassium Level 4.0mmol/L (3.5-5.1) Chloride Level 98mmol/L (98-107) Carbon Dioxide Level 24mmol/L (21-32) Anion Gap 12 (6-14) Blood Urea Nitrogen 13mg/dL (7-20) Creatinine 0.8mg/dL (0.6-1.0) Estimated GFR (Cockcroft-Gault) 72.4 Glucose Level 122mg/dL (70-99) Calcium Level 8.6mg/dL (8.5-10.1) Total Bilirubin 0.7mg/dL (0.2-1.0) Direct Bilirubin 0.2mg/dL (0.0-0.2) Aspartate Amino Transf (AST/SGOT) 37U/L (15-37) Alanine Aminotransferase (ALT/SGPT) 60U/L (14-59) Alkaline Phosphatase 115U/L (46-116) Troponin I Quantitative 0.032ng/mL (0.000-0.055) 0.044ng/mL (0.000-0.055) DH-Ywf-T-Type Natriuretic Peptide 4912pg/mL (0-124) Total Protein 6.1g/dL (6.4-8.2) Albumin 3.1g/dL (3.4-5.0) Lipase 140U/L (73-393) Urine Collection Type Unknown Urine Color Yellow Urine Clarity Clear Urine pH 6.0 Urine Specific [place] 1.020 Urine Protein 30mg/dL (NEG-TRACE) Urine Glucose (UA) Negativemg/dL (NEG) Urine Ketones (Stick) Negativemg/dL (NEG) Urine Blood Negative (NEG) Urine Nitrite Negative (NEG) Urine Bilirubin Negative (NEG) Urine Urobilinogen Dipstick 4.0mg/dL (0.2 mg/dL) Urine Leukocyte Esterase Small (NEG) Urine RBC 0/HPF (0-2) Urine WBC 5-10/HPF (0-4) Urine Squamous Epithelial Cells Few/LPF Urine Bacteria 0/HPF (0-FEW) Urine Mucus Slight/LPF Iron Level 18ug/dL (50-170) Total Iron Binding Capacity 386ug/dL (250-450) Iron Saturation 5% (15-34) Ferritin 15ng/mL (8-252) Triglycerides Level 48mg/dL (0-150) Cholesterol Level 88mg/dL (0-200) LDL Cholesterol, Calculated 48mg/dL (0-100) VLDL Cholesterol, Calculated 10mg/dL (0-40) HDL Cholesterol 30mg/dL (40-60) Cholesterol/HDL Ratio 2.9 Vitamin B12 Level 271pg/mL (247-911) Serum Folate > 20.00ng/ml (3.2-20.0) Thyroid Stimulating Hormone (TSH) 2.375uIU/mL (0.358-3.74) Glucose (Fingerstick) 130mg/dL (70-99) Test 05/01/16 10:58 05/01/16 16:42 05/01/16 19:45 05/01/16 20:52 Glucose (Fingerstick) 194mg/dL (70-99) 123mg/dL (70-99) 154mg/dL (70-99) White Blood Count 11.0x10^3/uL (4.0-11.0) Red Blood Count 3.84x10^6/uL (3.50-5.40) Hemoglobin 9.3g/dL (12.0-15.5) Hematocrit 29.3% (36.0-47.0) Mean Corpuscular Volume 76fL (79-100) Mean Corpuscular Hemoglobin 24pg (25-35) Mean Corpuscular Hemoglobin Concent 32g/dL (31-37) Red Cell Distribution Width 17.1% (11.5-14.5) Platelet Count 349x10^3/uL (140-400) Neutrophils (%) (Auto) 68% (31-73) Lymphocytes (%) (Auto) 24% (24-48) Monocytes (%) (Auto) 7% (0-9) Eosinophils (%) (Auto) 1% (0-3) Basophils (%) (Auto) 0% (0-3) Neutrophils # (Auto) 7.5x10^3uL (1.8-7.7) Lymphocytes # (Auto) 2.6x10^3/uL (1.0-4.8) Monocytes # (Auto) 0.8x10^3/uL (0.0-1.1) Eosinophils # (Auto) 0.1x10^3/uL (0.0-0.7) Basophils # (Auto) 0.0x10^3/uL (0.0-0.2) Prothrombin Time 14.6SEC (11.7-14.0) Prothromb Time International Ratio 1.2 (0.8-1.1) Sodium Level 133mmol/L (136-145) Potassium Level 4.0mmol/L (3.5-5.1) Chloride Level 98mmol/L (98-107) Carbon Dioxide Level 25mmol/L (21-32) Anion Gap 10 (6-14) Blood Urea Nitrogen 15mg/dL (7-20) Creatinine 1.1mg/dL (0.6-1.0) Estimated GFR (Cockcroft-Gault) 50.2 Glucose Level 179mg/dL (70-99) Calcium Level 8.6mg/dL (8.5-10.1) Test 05/02/16 08:36 Glucose (Fingerstick) 144mg/dL (70-99) Laboratory Tests Test 05/01/16 16:42 05/01/16 19:45 05/01/16 20:52 05/02/16 08:36 Glucose (Fingerstick) 123mg/dL (70-99) 154mg/dL (70-99) 144mg/dL (70-99) White Blood Count 11.0x10^3/uL (4.0-11.0) Red Blood Count 3.84x10^6/uL (3.50-5.40) Hemoglobin 9.3g/dL (12.0-15.5) Hematocrit 29.3% (36.0-47.0) Mean Corpuscular Volume 76fL (79-100) Mean Corpuscular Hemoglobin 24pg (25-35) Mean Corpuscular Hemoglobin Concent 32g/dL (31-37) Red Cell Distribution Width 17.1% (11.5-14.5) Platelet Count 349x10^3/uL (140-400) Neutrophils (%) (Auto) 68% (31-73) Lymphocytes (%) (Auto) 24% (24-48) Monocytes (%) (Auto) 7% (0-9) Eosinophils (%) (Auto) 1% (0-3) Basophils (%) (Auto) 0% (0-3) Neutrophils # (Auto) 7.5x10^3uL (1.8-7.7) Lymphocytes # (Auto) 2.6x10^3/uL (1.0-4.8) Monocytes # (Auto) 0.8x10^3/uL (0.0-1.1) Eosinophils # (Auto) 0.1x10^3/uL (0.0-0.7) Basophils # (Auto) 0.0x10^3/uL (0.0-0.2) Prothrombin Time 14.6SEC (11.7-14.0) Prothromb Time International Ratio 1.2 (0.8-1.1) Sodium Level 133mmol/L (136-145) Potassium Level 4.0mmol/L (3.5-5.1) Chloride Level 98mmol/L (98-107) Carbon Dioxide Level 25mmol/L (21-32) Anion Gap 10 (6-14) Blood Urea Nitrogen 15mg/dL (7-20) Creatinine 1.1mg/dL (0.6-1.0) Estimated GFR (Cockcroft-Gault) 50.2 Glucose Level 179mg/dL (70-99) Calcium Level 8.6mg/dL (8.5-10.1) Medications Active Scripts Medications Dose Route/Sig Days Date Category Potassium Chloride 10 Meq Tablet.er 10 Meq PO DAILY 04/30/16 Reported Furosemide 40 Mg Tablet 40 Mg PO DAILY 04/30/16 Reported Ambien (Zolpidem Tartrate) 10 Mg Tablet 10 Mg PO HS PRN 04/30/16 Reported Lumigan (Bimatoprost) 2.5 Ml Drops 2 Drop EACHEYE QHS 04/30/16 Reported Atorvastatin Calcium 10 Mg Tablet 10 Mg PO DAILY 04/30/16 Reported Losartan Potassium 25 Mg Tablet 25 Mg PO DAILY 04/30/16 Reported Metformin Hcl 500 Mg Tablet 1 Tab PO BID 04/30/16 Reported Impression . PULMONARY HTN WORK UP PROGRESS SEE MY NOTE REYNALDO ALVARADO MD May 02, 2016 15:29
[2016-05-02 15:34] LABS: CALCIUM 8.5 mg/dL (8.5-10.1); CREATININE 0.8 mg/dL (0.6-1.0); GFR 72.4
[2016-05-02] MEDS ORDERED: CONTRAST GIVEN MC PRN (16:00)
[2016-05-02] MEDS ORDERED: IOHEXOL 300 MG/ML 75 ML VIAL IV ONE (16:00)
[2016-05-02] MEDS ORDERED: IOHEXOL 240 MG/ML 50ML VIAL. PO ONE (16:00)
--- NOTE | 2016-05-02 16:40 | RAD ---
Indication abnormality in the upper abdomen seen on recent CT. Note is made of a CT examination of the chest, incorporating the upper abdomen, one day earlier suggesting possible splenic pathology. An acute finding in either lung base is not seen. There are bilateral pleural effusions similar to yesterday's exam with some associated atelectasis likely reflecting passive atelectasis associated with pleural fluid. There is a trace amount of pericardial fluid No focal mass is seen in the liver. There is some suggested niki portal edema which is a nonspecific finding but can be seen in patients with hepatic disease. Clinical correlation advised. There is possible pericholecystic fluid and or cholelithiasis. If gallbladder pathology is suspect additional evaluation could be obtained with ultrasound. The left kidney is largely atrophic. The right kidney is unremarkable. No adrenal masses are seen. No definite pancreatic pathology is seen. 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 There is a fracture through the spleen. There is a small amount of perisplenic fluid. A small amount of fluid is also seen surrounding the liver. Free fluid is seen in the dependent portion of the pelvis. No additional finding is seen pelvis. IMPRESSION: Known small pleural effusions are reproduced. Splenic laceration. Free fluid is seen in the dependent portion of the pelvis. Possible cholelithiasis. Atrophic left kidney PQRS Compliance Statement: One or more of the following individualized dose reduction techniques were utilized for this examination: 1. Automated exposure control 2. Adjustment of the mA and/or kV according to patient size 3. Use of iterative reconstruction technique
--- NOTE | 2016-05-02 18:06 | CONS ---
DATE OF CONSULTATION: 05/02/2016 REFERRING PHYSICIANS: Dr. Zeeshan Johnson, Dr. Candis Vogel, Dr. Tobias. Thank you for the consult. CHIEF COMPLAINT: Fatigue, shortness of air with exertion, and diagnosis of congestive heart failure. REASON FOR CONSULTATION: Splenic laceration. HISTORY OF PRESENT ILLNESS: This is a very pleasant 61-year-old female who is seen in her hospital room. She reports that she has had approximately one-month history of fatigue and significant shortness of air. She was diagnosed with urinary tract infection and flu, had cold-like symptoms a month ago. She has essentially been bed-ridden during that time with leg edema and dyspnea on exertion. She subsequently developed cough over the past week. She was admitted to the hospital for evaluation and has undergone workup. She had undergone a CT scan of her chest which was concerning for possible inflammation of the tail of the pancreas as well as possible splenic laceration. She denies any trauma to her chest or abdomen, although she does note a cough. She denies any abdominal pain, does report very minimal nausea, but denies any difficulty eating, reports normal bowel function. ALLERGIES: She has no known drug allergies. MEDICATIONS: Reviewed. PAST MEDICAL HISTORY: Diabetes, chronic kidney and renal disease, but she is not on dialysis. SOCIAL HISTORY: No tobacco, no significant alcohol use. FAMILY HISTORY: Positive for coronary artery disease. REVIEW OF SYSTEMS: All systems reviewed and negative except for HPI. PHYSICAL EXAMINATION: GENERAL: A well-developed, well-nourished female. No obvious distress. VITAL SIGNS: She is afebrile. She has been tachycardic between 110 and 127, respiratory rate 20, blood pressure is normal, and she is satting 96% on room air. LABORATORY DATA: White blood cell count was 12.6 on presentation, down to 11 yesterday, hemoglobin has been 9.7 to 9.3, and creatinine is 1.1. Her BNP had been 4912, ALT has been mildly elevated at 60, but other liver function tests within normal limits. Lipase was 140. A chest x-ray demonstrates a small left pleural effusion. Lower extremity ultrasound is essentially unremarkable. CT of her chest demonstrates no evidence of pulmonary embolism, bilateral effusions, atelectasis, and small nodule. There is some fluid around the spleen with regularity of the spleen, possibly a splenic laceration, indistinctness of the tail of the pancreas, which could be secondary to the splenic injury or pancreatitis, and splenic artery aneurysm. IMPRESSION AND RECOMMENDATIONS: Shortness of air, most likely related to congestive heart failure. I agree with Cardiology workup. I suspect that her indistinctness of her pancreas is secondary to the inflammation of her spleen. I suspect that this is possibly related to her other issues, and it may be related to her recent flu diagnosis which made her spleen enlarged and somewhat easily fractured, possibly even with cough. Splenic artery aneurysm appears to be fairly small. At this time, I agree with continued workup per Cardiology. We will not plan on any surgical intervention of her splenic aneurysm or spleen at this time. However, pending her resolution of her other issues, splenectomy and resection of the splenic artery aneurysm may be beneficial for diagnostic purposes and prevention of the sequelae. I will follow along for possible intervention. Thank you for allowing participation in the care of this very pleasant patient. [employer] was used in reviewing data on these diagnoses. NASIR MATHEWS MD DR: MARTINEZ/jacek JOB#: [id number] / [id number] Dr. Chris Borden HECTOR MD Reusch, REYNALDO Martínez MD, VAN DO XIE, CHUNMEI MD MTDD
[2016-05-02 19:15] VITALS: BP 125/64
[2016-05-02] MEDS: LATANOPROST 0.005% OPHTH SOLUTION 2.5ML BOTTLE. OU SCH (21:00)
[2016-05-02] MEDS: ATORVASTATIN CALCIUM 10 MG TABLET. PO SCH (21:49)
[2016-05-02] MEDS: ZOLPIDEM 5 MG TABLET. PO PRN (21:49)
[2016-05-02] MEDS: ENOXAPARIN 40 MG/0.4 ML DISP.SYRIN. SQ SCH (21:54)
[2016-05-02 23:45] VITALS: BP 106/73
--- NOTE | 2016-05-03 01:05 | CONS ---
DATE OF CONSULTATION: 05/02/2016 ATTENDING PHYSICIAN: Dr. Tobias. REASON FOR CONSULTATION: The patient is seen in Pulmonary consultation at the request of Dr. Vogel for pulmonary hypertension evaluation. HISTORY OF PRESENT ILLNESS: The patient is a 61-year-old that presented with a 3-week history of increasing shortness of breath. She also noticed at the same time some lower extremity edema and weight gain. She was admitted and evaluated. She underwent an echocardiogram. Echocardiogram revealed normal ejection fraction, pulmonary hypertension with a pulmonary artery pressure of 91 mmHg. I was asked to see the patient in consultation for further evaluation and management. The patient had a CT angiogram for pulmonary embolism. There was no pulmonary embolism. She also had bilateral venous Dopplers of lower extremities which were essentially normal. The lung parenchyma on the CT was essentially normal. Upon questioning, the patient has not taken any [id number] medication for weight reduction. She does not have any prior history of autoimmune diseases. No prior history of pulmonary hypertension. No prior history of DVT, pulmonary embolism. No prior history of left heart disease. I queried about obstructive sleep apnea. There is no history of obstructive sleep apnea. No family history of primary pulmonary hypertension. PAST MEDICAL HISTORY: Type 2 diabetes, chronic kidney disease. PAST SURGICAL HISTORY: No past surgical history. FAMILY HISTORY: No family history of primary pulmonary hypertension. SOCIAL HISTORY: She has never smoked. Denies any alcohol. No history of HIV exposure. REVIEW OF SYSTEMS: As indicated above, otherwise, a 10-point system was reviewed and negative. MEDICATIONS: List was reviewed. Please see the MRAD. HOME MEDICATION: List was likewise reviewed. Please see the MRAD. PHYSICAL EXAMINATION: GENERAL: The patient was in no respiratory distress. VITAL SIGNS: Stable. O2 saturation was greater than 92%. HEENT: Eyes, the sclerae were nonicteric. NECK: Jugular venous distention was not elevated. No lymphadenopathy. CHEST: Full expansion. LUNGS: No significant wheezes, rales or rhonchi. CARDIOVASCULAR: Regular rate and rhythm with S1, S2. She did have a gallop. ABDOMEN: Soft, nontender, nondistended. EXTREMITIES: No clubbing, cyanosis, 1+ edema. LABORATORY DATA: Reviewed. White count was normal. Hemoglobin and hematocrit were low. INR was 1.2. Electrolytes were noted. BUN and creatinine was noted. Albumin upon admission was low. BNP was elevated. Troponin was not elevated. Chest x-ray and CT reviewed as indicated above. No significant CT. No evidence of PE. IMPRESSION: 1. Pulmonary hypertension with her recent echocardiogram estimating pulmonary artery pressures of [address] for pulmonary emboli. 3. Acute right-sided heart failure. 4. Progressive dyspnea secondary to above. 5. Negative CT for PE. 6. Negative venous Doppler of the lower extremities. I suspect this may be primary pulmonary hypertension, clinically I could not identify a cause for secondary pulmonary hypertension. PLAN: 1. We will check [place], I doubt the patient has any autoimmune disease. 2. Check HIV status. 3. Nocturnal desaturation study. 4. Confirm pulmonary pressures with right-sided heart catheterization and administer vasodilator. 5. We will review the above and make further recommendations. As indicated above, clinically I could not identify a cause for secondary pulmonary hypertension. I do not think that she has an autoimmune disease. She is not taking any [id number] medications as an appetite suppressant. We will check HIV status. I do not think that she has portal hypertension. I do appreciate the privilege in sharing in the patient's care. REYNALDO ALVRAADO MD DR: LES/jacek JOB#: [id number] / [id number]
[2016-05-03 03:15] VITALS: BP 104/67
[2016-05-03 04:24] LABS: BASO # 0.1 x10^3/uL (0.0-0.2); BASO % 1 % (0-3); EOS % 1 % (0-3); HEMATOCRIT 30.2 % (36.0-47.0); HEMOGLOBIN 9.6 g/dL (12.0-15.5); LYMPH # 3.3 x10^3/uL (1.0-4.8); LYMPH % 33 % (24-48); MEAN CORPUSCULAR HEMOGLOBIN 24 pg (25-35); MEAN CORPUSCULAR HGB CONC 32 g/dL (31-37); MEAN CORPUSCULAR VOLUME 74 fL (79-100); MONO % 7 % (0-9); NEUT % 58 % (31-73); PLATELET COUNT 382 x10^3/uL (140-400); RED BLOOD COUNT 4.06 x10^6/uL (3.50-5.40); RED CELL DISTRIBUTION WIDTH 17.1 % (11.5-14.5); WHITE BLOOD COUNT 9.8 x10^3/uL (4.0-11.0)
[2016-05-03 04:37] LABS: ALBUMIN 2.7 g/dL (3.4-5.0); ALBUMIN/GLOBULIN RATIO 0.8 (1.0-1.7); CALCIUM 8.5 mg/dL (8.5-10.1); CREATININE 0.9 mg/dL (0.6-1.0); GFR 63.2; TOTAL BILIRUBIN 0.6 mg/dL (0.2-1.0); TOTAL PROTEIN 5.9 g/dL (6.4-8.2)
[2016-05-03 07:00] VITALS: BP 126/68
[2016-05-03] MEDS: INSULIN ASPART 300 UNITS/3 ML INSULN.PEN SQ SCH ×3 (08:00→17:00)
[2016-05-03] MEDS: POTASSIUM CHLORIDE 10 MEQ TABLET.ER. PO SCH (09:21)
[2016-05-03] MEDS: FUROSEMIDE 40 MG TABLET PO SCH (09:21)
[2016-05-03 11:00] VITALS: BP 133/73
--- NOTE | 2016-05-03 11:26 | PDOC ---
PROGRESS NOTES Chief Complaint Chief Complaint Acute hypoxic respir failure ASSESSMENT AND PLAN: 1. Primary pulm HTN: severe pA 91, idiopathic? 1. CHF: 2/2 above. responded well to diuresis. 2. DM2: well controlled; 3. CKD2: no acute issues 4. Anemia: microcytic. 5. Atrophic left kidney 6. SPleenic lac - hemodynamically stable 7. Asymptomatic cholelithiasis History of Present Illness History of Present Illness Some SOA at long walks NO CP NO leg swelling SOno neg for thromboembolic Pt denies known CAD or lung issues NOn smoker Likely PA idiopathic Asks about RHC Discussed with her PAH and its 5 classes and tx Splenic lac on images, denies trauma Educated on it -- avoiding trauma/contact sports etc and things to WOF in future - understands Verbal reports from RN thoughts about [facility] transfer from consults?? PLAN: CPm await cards plans Currently getting tx anyways for PAH Dw pt and family and RN Vitals Vitals Vital Signs Date Time Temp Pulse Resp B/P Pulse Ox O2 Delivery O2 Flow Rate FiO2 05/03/16 11:00 97.8 94 18 133/73 93 Room Air 97.8 05/02/16 19:15 2.0 Physical Exam General: Alert, Oriented X3, Cooperative, No acute distress Heart: Regular rate Lungs: Clear Abdomen: Normal bowel sounds, Soft, No tenderness Extremities: No cyanosis, No edema Skin: No rashes Labs LABS Laboratory Tests Test 05/02/16 15:10 05/02/16 18:24 05/03/16 03:20 Sodium Level 137mmol/L (136-145) 137mmol/L (136-145) Potassium Level 4.0mmol/L (3.5-5.1) 4.0mmol/L (3.5-5.1) Chloride Level 101mmol/L (98-107) 100mmol/L (98-107) Carbon Dioxide Level 28mmol/L (21-32) 25mmol/L (21-32) Anion Gap 8 (6-14) 12 (6-14) Blood Urea Nitrogen 14mg/dL (7-20) 15mg/dL (7-20) Creatinine 0.8mg/dL (0.6-1.0) 0.9mg/dL (0.6-1.0) Estimated GFR (Cockcroft-Gault) 72.4 63.2 Glucose Level 111mg/dL (70-99) 139mg/dL (70-99) Calcium Level 8.5mg/dL (8.5-10.1) 8.5mg/dL (8.5-10.1) HIV-1 Antibody Non reactive (Non Reactive) Glucose (Fingerstick) 196mg/dL (70-99) White Blood Count 9.8x10^3/uL (4.0-11.0) Red Blood Count 4.06x10^6/uL (3.50-5.40) Hemoglobin 9.6g/dL (12.0-15.5) Hematocrit 30.2% (36.0-47.0) Mean Corpuscular Volume 74fL (79-100) Mean Corpuscular Hemoglobin 24pg (25-35) Mean Corpuscular Hemoglobin Concent 32g/dL (31-37) Red Cell Distribution Width 17.1% (11.5-14.5) Platelet Count 382x10^3/uL (140-400) Neutrophils (%) (Auto) 58% (31-73) Lymphocytes (%) (Auto) 33% (24-48) Monocytes (%) (Auto) 7% (0-9) Eosinophils (%) (Auto) 1% (0-3) Basophils (%) (Auto) 1% (0-3) Neutrophils # (Auto) 5.6x10^3uL (1.8-7.7) Lymphocytes # (Auto) 3.3x10^3/uL (1.0-4.8) Monocytes # (Auto) 0.7x10^3/uL (0.0-1.1) Eosinophils # (Auto) 0.1x10^3/uL (0.0-0.7) Basophils # (Auto) 0.1x10^3/uL (0.0-0.2) BUN/Creatinine Ratio 17 (6-20) Total Bilirubin 0.6mg/dL (0.2-1.0) Aspartate Amino Transf (AST/SGOT) 32U/L (15-37) Alanine Aminotransferase (ALT/SGPT) 44U/L (14-59) Alkaline Phosphatase 147U/L (46-116) Total Protein 5.9g/dL (6.4-8.2) Albumin 2.7g/dL (3.4-5.0) Albumin/Globulin Ratio 0.8 (1.0-1.7) Review of Systems Review of Systems no inc SOA, CP, abd pain, n/v Assessment and Plan Assessmemt and Plan Problems Medical Problems: (1) Edema Status: Acute (2) Fatigue Status: Acute (3) Malaise Status: Acute (4) Shortness of breath Status: Acute Problems: Comment Review of Relevant I have reviewed the following items aldair (where applicable) has been applied. Labs Laboratory Tests Test 05/01/16 16:42 05/01/16 19:45 05/01/16 20:52 05/02/16 08:36 Glucose (Fingerstick) 123mg/dL (70-99) 154mg/dL (70-99) 144mg/dL (70-99) White Blood Count 11.0x10^3/uL (4.0-11.0) Red Blood Count 3.84x10^6/uL (3.50-5.40) Hemoglobin 9.3g/dL (12.0-15.5) Hematocrit 29.3% (36.0-47.0) Mean Corpuscular Volume 76fL (79-100) Mean Corpuscular Hemoglobin 24pg (25-35) Mean Corpuscular Hemoglobin Concent 32g/dL (31-37) Red Cell Distribution Width 17.1% (11.5-14.5) Platelet Count 349x10^3/uL (140-400) Neutrophils (%) (Auto) 68% (31-73) Lymphocytes (%) (Auto) 24% (24-48) Monocytes (%) (Auto) 7% (0-9) Eosinophils (%) (Auto) 1% (0-3) Basophils (%) (Auto) 0% (0-3) Neutrophils # (Auto) 7.5x10^3uL (1.8-7.7) Lymphocytes # (Auto) 2.6x10^3/uL (1.0-4.8) Monocytes # (Auto) 0.8x10^3/uL (0.0-1.1) Eosinophils # (Auto) 0.1x10^3/uL (0.0-0.7) Basophils # (Auto) 0.0x10^3/uL (0.0-0.2) Prothrombin Time 14.6SEC (11.7-14.0) Prothromb Time International Ratio 1.2 (0.8-1.1) Sodium Level 133mmol/L (136-145) Potassium Level 4.0mmol/L (3.5-5.1) Chloride Level 98mmol/L (98-107) Carbon Dioxide Level 25mmol/L (21-32) Anion Gap 10 (6-14) Blood Urea Nitrogen 15mg/dL (7-20) Creatinine 1.1mg/dL (0.6-1.0) Estimated GFR (Cockcroft-Gault) 50.2 Glucose Level 179mg/dL (70-99) Calcium Level 8.6mg/dL (8.5-10.1) Test 05/02/16 15:10 05/02/16 18:24 05/03/16 03:20 Sodium Level 137mmol/L (136-145) 137mmol/L (136-145) Potassium Level 4.0mmol/L (3.5-5.1) 4.0mmol/L (3.5-5.1) Chloride Level 101mmol/L (98-107) 100mmol/L (98-107) Carbon Dioxide Level 28mmol/L (21-32) 25mmol/L (21-32) Anion Gap 8 (6-14) 12 (6-14) Blood Urea Nitrogen 14mg/dL (7-20) 15mg/dL (7-20) Creatinine 0.8mg/dL (0.6-1.0) 0.9mg/dL (0.6-1.0) Estimated GFR (Cockcroft-Gault) 72.4 63.2 Glucose Level 111mg/dL (70-99) 139mg/dL (70-99) Calcium Level 8.5mg/dL (8.5-10.1) 8.5mg/dL (8.5-10.1) HIV-1 Antibody Non reactive (Non Reactive) Glucose (Fingerstick) 196mg/dL (70-99) White Blood Count 9.8x10^3/uL (4.0-11.0) Red Blood Count 4.06x10^6/uL (3.50-5.40) Hemoglobin 9.6g/dL (12.0-15.5) Hematocrit 30.2% (36.0-47.0) Mean Corpuscular Volume 74fL (79-100) Mean Corpuscular Hemoglobin 24pg (25-35) Mean Corpuscular Hemoglobin Concent 32g/dL (31-37) Red Cell Distribution Width 17.1% (11.5-14.5) Platelet Count 382x10^3/uL (140-400) Neutrophils (%) (Auto) 58% (31-73) Lymphocytes (%) (Auto) 33% (24-48) Monocytes (%) (Auto) 7% (0-9) Eosinophils (%) (Auto) 1% (0-3) Basophils (%) (Auto) 1% (0-3) Neutrophils # (Auto) 5.6x10^3uL (1.8-7.7) Lymphocytes # (Auto) 3.3x10^3/uL (1.0-4.8) Monocytes # (Auto) 0.7x10^3/uL (0.0-1.1) Eosinophils # (Auto) 0.1x10^3/uL (0.0-0.7) Basophils # (Auto) 0.1x10^3/uL (0.0-0.2) BUN/Creatinine Ratio 17 (6-20) Total Bilirubin 0.6mg/dL (0.2-1.0) Aspartate Amino Transf (AST/SGOT) 32U/L (15-37) Alanine Aminotransferase (ALT/SGPT) 44U/L (14-59) Alkaline Phosphatase 147U/L (46-116) Total Protein 5.9g/dL (6.4-8.2) Albumin 2.7g/dL (3.4-5.0) Albumin/Globulin Ratio 0.8 (1.0-1.7) Laboratory Tests Test 05/02/16 15:10 05/02/16 18:24 05/03/16 03:20 Sodium Level 137mmol/L (136-145) 137mmol/L (136-145) Potassium Level 4.0mmol/L (3.5-5.1) 4.0mmol/L (3.5-5.1) Chloride Level 101mmol/L (98-107) 100mmol/L (98-107) Carbon Dioxide Level 28mmol/L (21-32) 25mmol/L (21-32) Anion Gap 8 (6-14) 12 (6-14) Blood Urea Nitrogen 14mg/dL (7-20) 15mg/dL (7-20) Creatinine 0.8mg/dL (0.6-1.0) 0.9mg/dL (0.6-1.0) Estimated GFR (Cockcroft-Gault) 72.4 63.2 Glucose Level 111mg/dL (70-99) 139mg/dL (70-99) Calcium Level 8.5mg/dL (8.5-10.1) 8.5mg/dL (8.5-10.1) HIV-1 Antibody Non reactive (Non Reactive) Glucose (Fingerstick) 196mg/dL (70-99) White Blood Count 9.8x10^3/uL (4.0-11.0) Red Blood Count 4.06x10^6/uL (3.50-5.40) Hemoglobin 9.6g/dL (12.0-15.5) Hematocrit 30.2% (36.0-47.0) Mean Corpuscular Volume 74fL (79-100) Mean Corpuscular Hemoglobin 24pg (25-35) Mean Corpuscular Hemoglobin Concent 32g/dL (31-37) Red Cell Distribution Width 17.1% (11.5-14.5) Platelet Count 382x10^3/uL (140-400) Neutrophils (%) (Auto) 58% (31-73) Lymphocytes (%) (Auto) 33% (24-48) Monocytes (%) (Auto) 7% (0-9) Eosinophils (%) (Auto) 1% (0-3) Basophils (%) (Auto) 1% (0-3) Neutrophils # (Auto) 5.6x10^3uL (1.8-7.7) Lymphocytes # (Auto) 3.3x10^3/uL (1.0-4.8) Monocytes # (Auto) 0.7x10^3/uL (0.0-1.1) Eosinophils # (Auto) 0.1x10^3/uL (0.0-0.7) Basophils # (Auto) 0.1x10^3/uL (0.0-0.2) BUN/Creatinine Ratio 17 (6-20) Total Bilirubin 0.6mg/dL (0.2-1.0) Aspartate Amino Transf (AST/SGOT) 32U/L (15-37) Alanine Aminotransferase (ALT/SGPT) 44U/L (14-59) Alkaline Phosphatase 147U/L (46-116) Total Protein 5.9g/dL (6.4-8.2) Albumin 2.7g/dL (3.4-5.0) Albumin/Globulin Ratio 0.8 (1.0-1.7) Microbiology 04/30/16 Urine Culture - Final, Complete 04/30/16 Urine Culture Result 1 (DENA) - Final, Complete Medications Current Medications Albuterol/ Ipratropium (Duoneb) 3 ml 1X ONCE NEB Last administered on 17:26; Start 04/30/16 at 17:00; Stop 04/30/16 at 17:01; Status DC Ondansetron HCl (Zofran) 4 mg PRN Q6HRS PRN IV NAUSEA/VOMITING; Start 04/30/16 at 20:45 Acetaminophen/ Hydrocodone Bitart (Lortab 5/325) 1 tab PRN Q4HRS PRN PO MODERATE - SEVERE PAIN; Start 04/30/16 at 20:45 Acetaminophen (Tylenol) 650 mg PRN Q6HRS PRN PO MILD PAIN / TEMP; Start at 20:45 Enoxaparin Sodium (Lovenox 40mg Syringe) 40 mg Q24H SQ Last administered on 21:54; Start 04/30/16 at 21:00 Albuterol Sulfate (Ventolin Neb Soln) 2.5 mg PRN Q4HRS PRN NEB SHORTNESS OF BREATH Last administered on 05/01/16 21:27; Start 04/30/16 at 20:45 Furosemide (Lasix) 40 mg 1X ONCE IVP Last administered on 04/30/16 23:40; Start 04/30/16 at 21:30; Stop 04/30/16 at 21:31; Status DC Atorvastatin Calcium (Lipitor) 10 mg QHS PO Last administered on 05/02/16 21: 49; Start 05/01/16 at 21:00 Furosemide (Lasix) 40 mg DAILY PO Last administered on 05/03/16 09:21; Start 05/02/16 at 09:00 Losartan Potassium (Cozaar) 25 mg DAILY PO ; Start 05/01/16 at 13:00; Stop 05/01 at 17:55; Status DC Latanoprost (Xalatan) 1 drop QHS OU ; Start 05/01/16 at 21:00 Potassium Chloride (Klor-Con) 10 meq DAILYWBKFT PO Last administered on 09:21; Start 05/01/16 at 13:00 Zolpidem Tartrate (Ambien) 5 mg PRN QHS PRN PO INSOMNIA Last administered on 21:49; Start 05/01/16 at 12:45 Insulin Aspart (Novolog) 0-7 UNITS TIDWMEALS SQ Last administered on 05/02/16 18:43; Start 05/01/16 at 17:00 Dextrose 12.5 gm PRN Q15MIN PRN IV SEE COMMENTS; Start 05/01/16 at 12:45 Iohexol (Omnipaque 300 Mg/ml) 75 ml 1X ONCE IV ; Start 05/01/16 at 17:30; Stop 05/01/16 at 17:31; Status DC Info 1 each 1 each PRN DAILY PRN MC SEE COMMENTS; Start 05/01/16 at 17:30; Stop 05/02/16 at 15:51; Status DC Sodium Chloride (Iv Sodium Chloride 0.9% 500ml Bag) 500 ml @ 500 mls/hr 1X ONCE IV Last administered on 05/02/16 14:15; Start 05/02/16 at 14:15; Stop at 15:14; Status DC Iohexol (Omnipaque 300 Mg/ml) 75 ml 1X ONCE IV Last administered on 05/02/16 16:13; Start 05/02/16 at 16:00; Stop 05/02/16 at 16:01; Status DC Iohexol (Omnipaque 240 Mg/ml) 30 ml 1X ONCE PO Last administered on 05/02/16 16:13; Start 05/02/16 at 16:00; Stop 05/02/16 at 16:01; Status DC Info (Do NOT chart on this entry -- for MONITORING) 1 each PRN DAILY PRN MC SEE COMMENTS; Start 05/02/16 at 16:00; Stop 05/04/16 at 15:59 Active Scripts Active Reported Potassium Chloride 10 Meq Tablet.er 10 Meq PO DAILY Furosemide 40 Mg Tablet 40 Mg PO DAILY Ambien (Zolpidem Tartrate) 10 Mg Tablet 10 Mg PO HS PRN Lumigan (Bimatoprost) 2.5 Ml Drops 2 Drop EACHEYE QHS Atorvastatin Calcium 10 Mg Tablet 10 Mg PO DAILY Losartan Potassium 25 Mg Tablet 25 Mg PO DAILY Metformin Hcl 500 Mg Tablet 1 Tab PO BID Vitals/I & O Vital Sign - Last 24 Hours 05/02/16 05/02/16 05/02/16 05/02/16 14:31 19:15 20:00 23:45 Temp 98.0 97.6 97.8 98.0 97.6 97.8 Pulse 97 105 104 Resp 18 B/P 114/79 125/64 106/73 Pulse Ox 97 97 91 O2 Delivery Room Air Nasal Cannula Room Air Room Air O2 Flow Rate 2.0 05/03/16 05/03/16 05/03/16 03:15 07:00 11:00 Temp 98.1 97.3 97.8 98.1 97.3 97.8 Pulse 69 102 94 Resp 01 28 18 B/P 104/67 126/68 133/73 Pulse Ox 94 96 93 O2 Delivery Room Air Room Air Room Air Intake and Output 05/02/16 05/02/16 05/03/16 15:00 23:00 07:00 Intake Total 180 ml 1180 ml Output Total 200 ml 375 ml 600 ml Balance -20 ml 805 ml -600 ml ALFIE PALMA MD May 03, 2016 11:26
--- NOTE | 2016-05-03 12:00 | PDOC ---
PULMONARY PROGRESS NOTES Subjective slowly improving Vitals Vital Signs Date Time Temp Pulse Resp B/P Pulse Ox O2 Delivery O2 Flow Rate FiO2 05/03/16 11:00 97.8 94 18 133/73 93 Room Air 97.8 05/02/16 19:15 2.0 General: Alert, No acute distress Lungs: Clear Cardiovascular: S1 Abdomen: Soft Neuro Exam: Alert Extremities: Other (1=edema) Skin: Warm Labs Laboratory Tests Test 05/01/16 16:42 05/01/16 19:45 05/01/16 20:52 05/02/16 08:36 Glucose (Fingerstick) 123mg/dL (70-99) 154mg/dL (70-99) 144mg/dL (70-99) White Blood Count 11.0x10^3/uL (4.0-11.0) Red Blood Count 3.84x10^6/uL (3.50-5.40) Hemoglobin 9.3g/dL (12.0-15.5) Hematocrit 29.3% (36.0-47.0) Mean Corpuscular Volume 76fL (79-100) Mean Corpuscular Hemoglobin 24pg (25-35) Mean Corpuscular Hemoglobin Concent 32g/dL (31-37) Red Cell Distribution Width 17.1% (11.5-14.5) Platelet Count 349x10^3/uL (140-400) Neutrophils (%) (Auto) 68% (31-73) Lymphocytes (%) (Auto) 24% (24-48) Monocytes (%) (Auto) 7% (0-9) Eosinophils (%) (Auto) 1% (0-3) Basophils (%) (Auto) 0% (0-3) Neutrophils # (Auto) 7.5x10^3uL (1.8-7.7) Lymphocytes # (Auto) 2.6x10^3/uL (1.0-4.8) Monocytes # (Auto) 0.8x10^3/uL (0.0-1.1) Eosinophils # (Auto) 0.1x10^3/uL (0.0-0.7) Basophils # (Auto) 0.0x10^3/uL (0.0-0.2) Prothrombin Time 14.6SEC (11.7-14.0) Prothromb Time International Ratio 1.2 (0.8-1.1) Sodium Level 133mmol/L (136-145) Potassium Level 4.0mmol/L (3.5-5.1) Chloride Level 98mmol/L (98-107) Carbon Dioxide Level 25mmol/L (21-32) Anion Gap 10 (6-14) Blood Urea Nitrogen 15mg/dL (7-20) Creatinine 1.1mg/dL (0.6-1.0) Estimated GFR (Cockcroft-Gault) 50.2 Glucose Level 179mg/dL (70-99) Calcium Level 8.6mg/dL (8.5-10.1) Test 05/02/16 15:10 05/02/16 18:24 05/03/16 03:20 Sodium Level 137mmol/L (136-145) 137mmol/L (136-145) Potassium Level 4.0mmol/L (3.5-5.1) 4.0mmol/L (3.5-5.1) Chloride Level 101mmol/L (98-107) 100mmol/L (98-107) Carbon Dioxide Level 28mmol/L (21-32) 25mmol/L (21-32) Anion Gap 8 (6-14) 12 (6-14) Blood Urea Nitrogen 14mg/dL (7-20) 15mg/dL (7-20) Creatinine 0.8mg/dL (0.6-1.0) 0.9mg/dL (0.6-1.0) Estimated GFR (Cockcroft-Gault) 72.4 63.2 Glucose Level 111mg/dL (70-99) 139mg/dL (70-99) Calcium Level 8.5mg/dL (8.5-10.1) 8.5mg/dL (8.5-10.1) HIV-1 Antibody Non reactive (Non Reactive) Glucose (Fingerstick) 196mg/dL (70-99) White Blood Count 9.8x10^3/uL (4.0-11.0) Red Blood Count 4.06x10^6/uL (3.50-5.40) Hemoglobin 9.6g/dL (12.0-15.5) Hematocrit 30.2% (36.0-47.0) Mean Corpuscular Volume 74fL (79-100) Mean Corpuscular Hemoglobin 24pg (25-35) Mean Corpuscular Hemoglobin Concent 32g/dL (31-37) Red Cell Distribution Width 17.1% (11.5-14.5) Platelet Count 382x10^3/uL (140-400) Neutrophils (%) (Auto) 58% (31-73) Lymphocytes (%) (Auto) 33% (24-48) Monocytes (%) (Auto) 7% (0-9) Eosinophils (%) (Auto) 1% (0-3) Basophils (%) (Auto) 1% (0-3) Neutrophils # (Auto) 5.6x10^3uL (1.8-7.7) Lymphocytes # (Auto) 3.3x10^3/uL (1.0-4.8) Monocytes # (Auto) 0.7x10^3/uL (0.0-1.1) Eosinophils # (Auto) 0.1x10^3/uL (0.0-0.7) Basophils # (Auto) 0.1x10^3/uL (0.0-0.2) BUN/Creatinine Ratio 17 (6-20) Total Bilirubin 0.6mg/dL (0.2-1.0) Aspartate Amino Transf (AST/SGOT) 32U/L (15-37) Alanine Aminotransferase (ALT/SGPT) 44U/L (14-59) Alkaline Phosphatase 147U/L (46-116) Total Protein 5.9g/dL (6.4-8.2) Albumin 2.7g/dL (3.4-5.0) Albumin/Globulin Ratio 0.8 (1.0-1.7) Laboratory Tests Test 05/02/16 15:10 05/02/16 18:24 05/03/16 03:20 Sodium Level 137mmol/L (136-145) 137mmol/L (136-145) Potassium Level 4.0mmol/L (3.5-5.1) 4.0mmol/L (3.5-5.1) Chloride Level 101mmol/L (98-107) 100mmol/L (98-107) Carbon Dioxide Level 28mmol/L (21-32) 25mmol/L (21-32) Anion Gap 8 (6-14) 12 (6-14) Blood Urea Nitrogen 14mg/dL (7-20) 15mg/dL (7-20) Creatinine 0.8mg/dL (0.6-1.0) 0.9mg/dL (0.6-1.0) Estimated GFR (Cockcroft-Gault) 72.4 63.2 Glucose Level 111mg/dL (70-99) 139mg/dL (70-99) Calcium Level 8.5mg/dL (8.5-10.1) 8.5mg/dL (8.5-10.1) HIV-1 Antibody Non reactive (Non Reactive) Glucose (Fingerstick) 196mg/dL (70-99) White Blood Count 9.8x10^3/uL (4.0-11.0) Red Blood Count 4.06x10^6/uL (3.50-5.40) Hemoglobin 9.6g/dL (12.0-15.5) Hematocrit 30.2% (36.0-47.0) Mean Corpuscular Volume 74fL (79-100) Mean Corpuscular Hemoglobin 24pg (25-35) Mean Corpuscular Hemoglobin Concent 32g/dL (31-37) Red Cell Distribution Width 17.1% (11.5-14.5) Platelet Count 382x10^3/uL (140-400) Neutrophils (%) (Auto) 58% (31-73) Lymphocytes (%) (Auto) 33% (24-48) Monocytes (%) (Auto) 7% (0-9) Eosinophils (%) (Auto) 1% (0-3) Basophils (%) (Auto) 1% (0-3) Neutrophils # (Auto) 5.6x10^3uL (1.8-7.7) Lymphocytes # (Auto) 3.3x10^3/uL (1.0-4.8) Monocytes # (Auto) 0.7x10^3/uL (0.0-1.1) Eosinophils # (Auto) 0.1x10^3/uL (0.0-0.7) Basophils # (Auto) 0.1x10^3/uL (0.0-0.2) BUN/Creatinine Ratio 17 (6-20) Total Bilirubin 0.6mg/dL (0.2-1.0) Aspartate Amino Transf (AST/SGOT) 32U/L (15-37) Alanine Aminotransferase (ALT/SGPT) 44U/L (14-59) Alkaline Phosphatase 147U/L (46-116) Total Protein 5.9g/dL (6.4-8.2) Albumin 2.7g/dL (3.4-5.0) Albumin/Globulin Ratio 0.8 (1.0-1.7) Medications Active Scripts Medications Dose Route/Sig Days Date Category Potassium Chloride 10 Meq Tablet.er 10 Meq PO DAILY 04/30/16 Reported Furosemide 40 Mg Tablet 40 Mg PO DAILY 04/30/16 Reported Ambien (Zolpidem Tartrate) 10 Mg Tablet 10 Mg PO HS PRN 04/30/16 Reported Lumigan (Bimatoprost) 2.5 Ml Drops 2 Drop EACHEYE QHS 04/30/16 Reported Atorvastatin Calcium 10 Mg Tablet 10 Mg PO DAILY 04/30/16 Reported Losartan Potassium 25 Mg Tablet 25 Mg PO DAILY 04/30/16 Reported Metformin Hcl 500 Mg Tablet 1 Tab PO BID 04/30/16 Reported Impression . 1. Pulmonary hypertension with her recent echocardiogram estimating pulmonary artery pressures of 91 mmHg. I suspect this may be primary pulmonary hypertension, clinically I could not identify a cause for secondary pulmonary hypertension. 2. Negative CT for pulmonary emboli. 3. Acute right-sided heart failure. 4. Progressive dyspnea secondary to above. 5. Mild diastolic dysfunction/ LVH, Does not explain severity of PA pressure. 6. Negative venous Doppler of the lower extremities. 7. Spontaneous splenic laceration of unclear etiology, no intervention per surgery 8. small RLL sub-pleural nodule Plan . 1. We will check MILKA, I doubt the patient has any autoimmune disease. 2. Check HIV status. 3. Nocturnal desaturation study. 4. Confirm pulmonary pressures with right-sided heart catheterization and vasodilator challenge per protocol. 5. We will review the above and make further recommendations. 6. Improve nutrition status, small effusions could be due to low oncotic pressure 7. f/u ct chest for lung nodule in 4 months/ low risk for malignancy d/w entire family and patient. If it turns out to be primary pulmonary HTN, she can either follow up with us in office or if she prefers we can arrange her to be seen at Pulmonary HTN clinic ISHAAN JULIO MD May 03, 2016 12:00
--- NOTE | 2016-05-03 12:09 | PDOC ---
SURGICAL PROGRESS NOTE Subjective no pain no n/v Vital Signs Vital Signs Date Time Temp Pulse Resp B/P Pulse Ox O2 Delivery O2 Flow Rate FiO2 05/03/16 11:00 97.8 94 18 133/73 93 Room Air 97.8 05/02/16 19:15 2.0 I&O Intake and Output 05/03/16 07:00 Intake Total 1360 ml Output Total 1175 ml Balance 185 ml Intake Oral 1360 ml Output Urine Total 1175 ml # Voids 3 General: Alert, Oriented X3, Cooperative, No acute distress Abdomen: Soft, No tenderness Labs Laboratory Tests Test 05/01/16 16:42 05/01/16 19:45 05/01/16 20:52 05/02/16 08:36 Glucose (Fingerstick) 123mg/dL (70-99) 154mg/dL (70-99) 144mg/dL (70-99) White Blood Count 11.0x10^3/uL (4.0-11.0) Red Blood Count 3.84x10^6/uL (3.50-5.40) Hemoglobin 9.3g/dL (12.0-15.5) Hematocrit 29.3% (36.0-47.0) Mean Corpuscular Volume 76fL (79-100) Mean Corpuscular Hemoglobin 24pg (25-35) Mean Corpuscular Hemoglobin Concent 32g/dL (31-37) Red Cell Distribution Width 17.1% (11.5-14.5) Platelet Count 349x10^3/uL (140-400) Neutrophils (%) (Auto) 68% (31-73) Lymphocytes (%) (Auto) 24% (24-48) Monocytes (%) (Auto) 7% (0-9) Eosinophils (%) (Auto) 1% (0-3) Basophils (%) (Auto) 0% (0-3) Neutrophils # (Auto) 7.5x10^3uL (1.8-7.7) Lymphocytes # (Auto) 2.6x10^3/uL (1.0-4.8) Monocytes # (Auto) 0.8x10^3/uL (0.0-1.1) Eosinophils # (Auto) 0.1x10^3/uL (0.0-0.7) Basophils # (Auto) 0.0x10^3/uL (0.0-0.2) Prothrombin Time 14.6SEC (11.7-14.0) Prothromb Time International Ratio 1.2 (0.8-1.1) Sodium Level 133mmol/L (136-145) Potassium Level 4.0mmol/L (3.5-5.1) Chloride Level 98mmol/L (98-107) Carbon Dioxide Level 25mmol/L (21-32) Anion Gap 10 (6-14) Blood Urea Nitrogen 15mg/dL (7-20) Creatinine 1.1mg/dL (0.6-1.0) Estimated GFR (Cockcroft-Gault) 50.2 Glucose Level 179mg/dL (70-99) Calcium Level 8.6mg/dL (8.5-10.1) Test 05/02/16 15:10 05/02/16 18:24 05/03/16 03:20 05/03/16 11:57 Sodium Level 137mmol/L (136-145) 137mmol/L (136-145) Potassium Level 4.0mmol/L (3.5-5.1) 4.0mmol/L (3.5-5.1) Chloride Level 101mmol/L (98-107) 100mmol/L (98-107) Carbon Dioxide Level 28mmol/L (21-32) 25mmol/L (21-32) Anion Gap 8 (6-14) 12 (6-14) Blood Urea Nitrogen 14mg/dL (7-20) 15mg/dL (7-20) Creatinine 0.8mg/dL (0.6-1.0) 0.9mg/dL (0.6-1.0) Estimated GFR (Cockcroft-Gault) 72.4 63.2 Glucose Level 111mg/dL (70-99) 139mg/dL (70-99) Calcium Level 8.5mg/dL (8.5-10.1) 8.5mg/dL (8.5-10.1) HIV-1 Antibody Non reactive (Non Reactive) Glucose (Fingerstick) 196mg/dL (70-99) 127mg/dL (70-99) White Blood Count 9.8x10^3/uL (4.0-11.0) Red Blood Count 4.06x10^6/uL (3.50-5.40) Hemoglobin 9.6g/dL (12.0-15.5) Hematocrit 30.2% (36.0-47.0) Mean Corpuscular Volume 74fL (79-100) Mean Corpuscular Hemoglobin 24pg (25-35) Mean Corpuscular Hemoglobin Concent 32g/dL (31-37) Red Cell Distribution Width 17.1% (11.5-14.5) Platelet Count 382x10^3/uL (140-400) Neutrophils (%) (Auto) 58% (31-73) Lymphocytes (%) (Auto) 33% (24-48) Monocytes (%) (Auto) 7% (0-9) Eosinophils (%) (Auto) 1% (0-3) Basophils (%) (Auto) 1% (0-3) Neutrophils # (Auto) 5.6x10^3uL (1.8-7.7) Lymphocytes # (Auto) 3.3x10^3/uL (1.0-4.8) Monocytes # (Auto) 0.7x10^3/uL (0.0-1.1) Eosinophils # (Auto) 0.1x10^3/uL (0.0-0.7) Basophils # (Auto) 0.1x10^3/uL (0.0-0.2) BUN/Creatinine Ratio 17 (6-20) Total Bilirubin 0.6mg/dL (0.2-1.0) Aspartate Amino Transf (AST/SGOT) 32U/L (15-37) Alanine Aminotransferase (ALT/SGPT) 44U/L (14-59) Alkaline Phosphatase 147U/L (46-116) Total Protein 5.9g/dL (6.4-8.2) Albumin 2.7g/dL (3.4-5.0) Albumin/Globulin Ratio 0.8 (1.0-1.7) Laboratory Tests Test 05/02/16 15:10 05/02/16 18:24 05/03/16 03:20 05/03/16 11:57 Sodium Level 137mmol/L (136-145) 137mmol/L (136-145) Potassium Level 4.0mmol/L (3.5-5.1) 4.0mmol/L (3.5-5.1) Chloride Level 101mmol/L (98-107) 100mmol/L (98-107) Carbon Dioxide Level 28mmol/L (21-32) 25mmol/L (21-32) Anion Gap 8 (6-14) 12 (6-14) Blood Urea Nitrogen 14mg/dL (7-20) 15mg/dL (7-20) Creatinine 0.8mg/dL (0.6-1.0) 0.9mg/dL (0.6-1.0) Estimated GFR (Cockcroft-Gault) 72.4 63.2 Glucose Level 111mg/dL (70-99) 139mg/dL (70-99) Calcium Level 8.5mg/dL (8.5-10.1) 8.5mg/dL (8.5-10.1) HIV-1 Antibody Non reactive (Non Reactive) Glucose (Fingerstick) 196mg/dL (70-99) 127mg/dL (70-99) White Blood Count 9.8x10^3/uL (4.0-11.0) Red Blood Count 4.06x10^6/uL (3.50-5.40) Hemoglobin 9.6g/dL (12.0-15.5) Hematocrit 30.2% (36.0-47.0) Mean Corpuscular Volume 74fL (79-100) Mean Corpuscular Hemoglobin 24pg (25-35) Mean Corpuscular Hemoglobin Concent 32g/dL (31-37) Red Cell Distribution Width 17.1% (11.5-14.5) Platelet Count 382x10^3/uL (140-400) Neutrophils (%) (Auto) 58% (31-73) Lymphocytes (%) (Auto) 33% (24-48) Monocytes (%) (Auto) 7% (0-9) Eosinophils (%) (Auto) 1% (0-3) Basophils (%) (Auto) 1% (0-3) Neutrophils # (Auto) 5.6x10^3uL (1.8-7.7) Lymphocytes # (Auto) 3.3x10^3/uL (1.0-4.8) Monocytes # (Auto) 0.7x10^3/uL (0.0-1.1) Eosinophils # (Auto) 0.1x10^3/uL (0.0-0.7) Basophils # (Auto) 0.1x10^3/uL (0.0-0.2) BUN/Creatinine Ratio 17 (6-20) Total Bilirubin 0.6mg/dL (0.2-1.0) Aspartate Amino Transf (AST/SGOT) 32U/L (15-37) Alanine Aminotransferase (ALT/SGPT) 44U/L (14-59) Alkaline Phosphatase 147U/L (46-116) Total Protein 5.9g/dL (6.4-8.2) Albumin 2.7g/dL (3.4-5.0) Albumin/Globulin Ratio 0.8 (1.0-1.7) Problem List Problems Medical Problems: (1) Edema Status: Acute (2) Fatigue Status: Acute (3) Malaise Status: Acute (4) Shortness of breath Status: Acute Assessment/Plan splenic laceration hgb stable, benign exam discussed precautions--strenuous/contact activities Problems: VERNON PAULA APRN May 03, 2016 12:08
--- NOTE | 2016-05-03 14:00 | PDOC ---
PROGRESS NOTES Subjective Subjective Patient is resting comfortably in bed. She still experiencing SOB. Patient denies any chest pain, palpitations, or lightheadedness. Objective Objective Vital Signs Date Time Temp Pulse Resp B/P Pulse Ox O2 Delivery O2 Flow Rate FiO2 05/03/16 11:00 97.8 94 18 133/73 93 Room Air 97.8 05/02/16 19:15 2.0 Intake and Output 05/03/16 07:00 Intake Total 1360 ml Output Total 1175 ml Balance 185 ml Intake Oral 1360 ml Output Urine Total 1175 ml # Voids 3 Physical Exam Physical Exam Heart: Regular rate, Normal S1, Normal S2 Extremities: No clubbing, No cyanosis General: Alert, Oriented X3, Cooperative, No acute distress HEENT: Atraumatic, Mucous membr. moist/pink Lungs: Clear to auscultation, Normal air movement Skin: No rashes, No breakdown Assessment Assessment Discuss the situation with the pt. I agree with the pulmonary service recommendations and I leave it up to them and the pt to decide if she is going to follow up here or in [facility]. Will do the R Heart Cath tomorrow. Problems Medical Problems: (1) Edema Status: Acute (2) Fatigue Status: Acute (3) Malaise Status: Acute (4) Shortness of breath Status: Acute Comment Review of Relevant I have reviewed the following items aldair (where applicable) has been applied. Labs Laboratory Tests Test 05/01/16 16:42 05/01/16 19:45 05/01/16 20:52 05/02/16 08:36 Glucose (Fingerstick) 123mg/dL (70-99) 154mg/dL (70-99) 144mg/dL (70-99) White Blood Count 11.0x10^3/uL (4.0-11.0) Red Blood Count 3.84x10^6/uL (3.50-5.40) Hemoglobin 9.3g/dL (12.0-15.5) Hematocrit 29.3% (36.0-47.0) Mean Corpuscular Volume 76fL (79-100) Mean Corpuscular Hemoglobin 24pg (25-35) Mean Corpuscular Hemoglobin Concent 32g/dL (31-37) Red Cell Distribution Width 17.1% (11.5-14.5) Platelet Count 349x10^3/uL (140-400) Neutrophils (%) (Auto) 68% (31-73) Lymphocytes (%) (Auto) 24% (24-48) Monocytes (%) (Auto) 7% (0-9) Eosinophils (%) (Auto) 1% (0-3) Basophils (%) (Auto) 0% (0-3) Neutrophils # (Auto) 7.5x10^3uL (1.8-7.7) Lymphocytes # (Auto) 2.6x10^3/uL (1.0-4.8) Monocytes # (Auto) 0.8x10^3/uL (0.0-1.1) Eosinophils # (Auto) 0.1x10^3/uL (0.0-0.7) Basophils # (Auto) 0.0x10^3/uL (0.0-0.2) Prothrombin Time 14.6SEC (11.7-14.0) Prothromb Time International Ratio 1.2 (0.8-1.1) Sodium Level 133mmol/L (136-145) Potassium Level 4.0mmol/L (3.5-5.1) Chloride Level 98mmol/L (98-107) Carbon Dioxide Level 25mmol/L (21-32) Anion Gap 10 (6-14) Blood Urea Nitrogen 15mg/dL (7-20) Creatinine 1.1mg/dL (0.6-1.0) Estimated GFR (Cockcroft-Gault) 50.2 Glucose Level 179mg/dL (70-99) Calcium Level 8.6mg/dL (8.5-10.1) Test 05/02/16 15:10 05/02/16 18:24 05/03/16 03:20 05/03/16 11:57 Sodium Level 137mmol/L (136-145) 137mmol/L (136-145) Potassium Level 4.0mmol/L (3.5-5.1) 4.0mmol/L (3.5-5.1) Chloride Level 101mmol/L (98-107) 100mmol/L (98-107) Carbon Dioxide Level 28mmol/L (21-32) 25mmol/L (21-32) Anion Gap 8 (6-14) 12 (6-14) Blood Urea Nitrogen 14mg/dL (7-20) 15mg/dL (7-20) Creatinine 0.8mg/dL (0.6-1.0) 0.9mg/dL (0.6-1.0) Estimated GFR (Cockcroft-Gault) 72.4 63.2 Glucose Level 111mg/dL (70-99) 139mg/dL (70-99) Calcium Level 8.5mg/dL (8.5-10.1) 8.5mg/dL (8.5-10.1) HIV-1 Antibody Non reactive (Non Reactive) Glucose (Fingerstick) 196mg/dL (70-99) 127mg/dL (70-99) White Blood Count 9.8x10^3/uL (4.0-11.0) Red Blood Count 4.06x10^6/uL (3.50-5.40) Hemoglobin 9.6g/dL (12.0-15.5) Hematocrit 30.2% (36.0-47.0) Mean Corpuscular Volume 74fL (79-100) Mean Corpuscular Hemoglobin 24pg (25-35) Mean Corpuscular Hemoglobin Concent 32g/dL (31-37) Red Cell Distribution Width 17.1% (11.5-14.5) Platelet Count 382x10^3/uL (140-400) Neutrophils (%) (Auto) 58% (31-73) Lymphocytes (%) (Auto) 33% (24-48) Monocytes (%) (Auto) 7% (0-9) Eosinophils (%) (Auto) 1% (0-3) Basophils (%) (Auto) 1% (0-3) Neutrophils # (Auto) 5.6x10^3uL (1.8-7.7) Lymphocytes # (Auto) 3.3x10^3/uL (1.0-4.8) Monocytes # (Auto) 0.7x10^3/uL (0.0-1.1) Eosinophils # (Auto) 0.1x10^3/uL (0.0-0.7) Basophils # (Auto) 0.1x10^3/uL (0.0-0.2) BUN/Creatinine Ratio 17 (6-20) Total Bilirubin 0.6mg/dL (0.2-1.0) Aspartate Amino Transf (AST/SGOT) 32U/L (15-37) Alanine Aminotransferase (ALT/SGPT) 44U/L (14-59) Alkaline Phosphatase 147U/L (46-116) Total Protein 5.9g/dL (6.4-8.2) Albumin 2.7g/dL (3.4-5.0) Albumin/Globulin Ratio 0.8 (1.0-1.7) Laboratory Tests Test 05/02/16 15:10 05/02/16 18:24 05/03/16 03:20 05/03/16 11:57 Sodium Level 137mmol/L (136-145) 137mmol/L (136-145) Potassium Level 4.0mmol/L (3.5-5.1) 4.0mmol/L (3.5-5.1) Chloride Level 101mmol/L (98-107) 100mmol/L (98-107) Carbon Dioxide Level 28mmol/L (21-32) 25mmol/L (21-32) Anion Gap 8 (6-14) 12 (6-14) Blood Urea Nitrogen 14mg/dL (7-20) 15mg/dL (7-20) Creatinine 0.8mg/dL (0.6-1.0) 0.9mg/dL (0.6-1.0) Estimated GFR (Cockcroft-Gault) 72.4 63.2 Glucose Level 111mg/dL (70-99) 139mg/dL (70-99) Calcium Level 8.5mg/dL (8.5-10.1) 8.5mg/dL (8.5-10.1) HIV-1 Antibody Non reactive (Non Reactive) Glucose (Fingerstick) 196mg/dL (70-99) 127mg/dL (70-99) White Blood Count 9.8x10^3/uL (4.0-11.0) Red Blood Count 4.06x10^6/uL (3.50-5.40) Hemoglobin 9.6g/dL (12.0-15.5) Hematocrit 30.2% (36.0-47.0) Mean Corpuscular Volume 74fL (79-100) Mean Corpuscular Hemoglobin 24pg (25-35) Mean Corpuscular Hemoglobin Concent 32g/dL (31-37) Red Cell Distribution Width 17.1% (11.5-14.5) Platelet Count 382x10^3/uL (140-400) Neutrophils (%) (Auto) 58% (31-73) Lymphocytes (%) (Auto) 33% (24-48) Monocytes (%) (Auto) 7% (0-9) Eosinophils (%) (Auto) 1% (0-3) Basophils (%) (Auto) 1% (0-3) Neutrophils # (Auto) 5.6x10^3uL (1.8-7.7) Lymphocytes # (Auto) 3.3x10^3/uL (1.0-4.8) Monocytes # (Auto) 0.7x10^3/uL (0.0-1.1) Eosinophils # (Auto) 0.1x10^3/uL (0.0-0.7) Basophils # (Auto) 0.1x10^3/uL (0.0-0.2) BUN/Creatinine Ratio 17 (6-20) Total Bilirubin 0.6mg/dL (0.2-1.0) Aspartate Amino Transf (AST/SGOT) 32U/L (15-37) Alanine Aminotransferase (ALT/SGPT) 44U/L (14-59) Alkaline Phosphatase 147U/L (46-116) Total Protein 5.9g/dL (6.4-8.2) Albumin 2.7g/dL (3.4-5.0) Albumin/Globulin Ratio 0.8 (1.0-1.7) Microbiology 04/30/16 Urine Culture - Final, Complete 04/30/16 Urine Culture Result 1 (DENA) - Final, Complete Medications Current Medications Albuterol/ Ipratropium (Duoneb) 3 ml 1X ONCE NEB Last administered on t 17:26; Start 04/30/16 at 17:00; Stop 04/30/16 at 17:01; Status DC Ondansetron HCl (Zofran) 4 mg PRN Q6HRS PRN IV NAUSEA/VOMITING; Start 04/30/16 at 20:45 Acetaminophen/ Hydrocodone Bitart (Lortab 5/325) 1 tab PRN Q4HRS PRN PO MODERATE - SEVERE PAIN; Start 04/30/16 at 20:45 Acetaminophen (Tylenol) 650 mg PRN Q6HRS PRN PO MILD PAIN / TEMP; Start at 20:45 Enoxaparin Sodium (Lovenox 40mg Syringe) 40 mg Q24H SQ Last administered on 21:54; Start 04/30/16 at 21:00 Albuterol Sulfate (Ventolin Neb Soln) 2.5 mg PRN Q4HRS PRN NEB SHORTNESS OF BREATH Last administered on 05/01/16 21:27; Start 04/30/16 at 20:45 Furosemide (Lasix) 40 mg 1X ONCE IVP Last administered on 04/30/16 23:40; Start 04/30/16 at 21:30; Stop 04/30/16 at 21:31; Status DC Atorvastatin Calcium (Lipitor) 10 mg QHS PO Last administered on 05/02/16 21: 49; Start 05/01/16 at 21:00 Furosemide (Lasix) 40 mg DAILY PO Last administered on 05/03/16 09:21; Start 05/02/16 at 09:00 Losartan Potassium (Cozaar) 25 mg DAILY PO ; Start 05/01/16 at 13:00; Stop 05/01 at 17:55; Status DC Latanoprost (Xalatan) 1 drop QHS OU ; Start 05/01/16 at 21:00 Potassium Chloride (Klor-Con) 10 meq DAILYWBKFT PO Last administered on 09:21; Start 05/01/16 at 13:00 Zolpidem Tartrate (Ambien) 5 mg PRN QHS PRN PO INSOMNIA Last administered on 21:49; Start 05/01/16 at 12:45 Insulin Aspart (Novolog) 0-7 UNITS TIDWMEALS SQ Last administered on 05/02/16 18:43; Start 05/01/16 at 17:00 Dextrose 12.5 gm PRN Q15MIN PRN IV SEE COMMENTS; Start 05/01/16 at 12:45 Iohexol (Omnipaque 300 Mg/ml) 75 ml 1X ONCE IV ; Start 05/01/16 at 17:30; Stop 05/01/16 at 17:31; Status DC Info 1 each 1 each PRN DAILY PRN MC SEE COMMENTS; Start 05/01/16 at 17:30; Stop 05/02/16 at 15:51; Status DC Sodium Chloride (Iv Sodium Chloride 0.9% 500ml Bag) 500 ml @ 500 mls/hr 1X ONCE IV Last administered on 05/02/16 14:15; Start 05/02/16 at 14:15; Stop at 15:14; Status DC Iohexol (Omnipaque 300 Mg/ml) 75 ml 1X ONCE IV Last administered on 05/02/16 16:13; Start 05/02/16 at 16:00; Stop 05/02/16 at 16:01; Status DC Iohexol (Omnipaque 240 Mg/ml) 30 ml 1X ONCE PO Last administered on 05/02/16 16:13; Start 05/02/16 at 16:00; Stop 05/02/16 at 16:01; Status DC Info (Do NOT chart on this entry -- for MONITORING) 1 each PRN DAILY PRN MC SEE COMMENTS; Start 05/02/16 at 16:00; Stop 05/04/16 at 15:59 Active Scripts Active Reported Potassium Chloride 10 Meq Tablet.er 10 Meq PO DAILY Furosemide 40 Mg Tablet 40 Mg PO DAILY Ambien (Zolpidem Tartrate) 10 Mg Tablet 10 Mg PO HS PRN Lumigan (Bimatoprost) 2.5 Ml Drops 2 Drop EACHEYE QHS Atorvastatin Calcium 10 Mg Tablet 10 Mg PO DAILY Losartan Potassium 25 Mg Tablet 25 Mg PO DAILY Metformin Hcl 500 Mg Tablet 1 Tab PO BID Vitals/I & O Vital Sign - Last 24 Hours 05/02/16 05/02/16 05/02/16 05/02/16 14:31 19:15 20:00 23:45 Temp 98.0 97.6 97.8 98.0 97.6 97.8 Pulse 97 105 104 Resp 18 18 18 B/P 114/79 125/64 106/73 Pulse Ox 97 97 91 O2 Delivery Room Air Nasal Cannula Room Air Room Air O2 Flow Rate 2.0 05/03/16 05/03/16 05/03/16 05/03/16 03:15 07:00 08:00 11:00 Temp 98.1 97.3 97.8 98.1 97.3 97.8 Pulse 69 102 94 Resp 12 18 18 B/P 104/67 126/68 133/73 Pulse Ox 94 96 93 O2 Delivery Room Air Room Air Room Air Room Air Intake and Output 05/02/16 05/02/16 05/03/16 15:00 23:00 07:00 Intake Total 180 ml 1180 ml Output Total 200 ml 375 ml 600 ml Balance -20 ml 805 ml -600 ml NANCY MUNOZ MD May 03, 2016 14:00
--- NOTE | 2016-05-03 14:44 | PDOC ---
MODERATE SEDATION ASSESSMENT RISKS/ALTERNATIVES Risks/Alternatives Risks and alternatives of this type of sedation and procedure discussed with: RISK/ALTERNATIVES: Patient H & P ON CHART H & P H & P on chart and reviewed for co-morbid conditions and appropriate labs. H&P ON CHART: Yes STATUS PREG STATUS ASSESSED: Yes MEDS/ALLERGIES REVIEWED Meds/Allergies Reviewed Medications and Allergies including time and route of recently administered narcotics and sedatives. MEDS/ALLERGIES REVIEWED: Yes ASA RATING ASA RATING: II AIRWAY ASSESSMENT Airway Assessment Airway patency, oral function limitations, presence of caps, crowns, dentures, partials, and ability to extend neck assessed. AIRWAY ASSESSMENT: Yes MALLAMPATI SCORE MALLAMPATI SCORE: II PRE-SEDATION ASSESSMENT PRE-SEDATION ASSESSMENT: Yes NANCY MUNOZ MD May 03, 2016 14:44
[2016-05-03 15:00] VITALS: BP 119/74
--- NOTE | 2016-05-03 15:53 | RESP ---
DATE OF SERVICE: 05/02/2016 NOCTURNAL OXIMETRY STUDY The patient's mean oxygen saturation remained around 89% with a lowest of 79%. 54% of time oxygen saturation remained less than 90%, and it was 4 hours and 18 minutes. IMPRESSION: Moderate nocturnal hypoxia. RECOMMENDATIONS: The patient would benefit from nocturnal oxygen at least of 2 liters and workup of nocturnal hypoxia per PCP. ISHAAN JULIO MD DR: [email or web address] JOB#: [id number] / [id number]
[2016-05-03 19:10] VITALS: BP 132/70
[2016-05-03] MEDS: ATORVASTATIN CALCIUM 10 MG TABLET. PO SCH (20:06)
[2016-05-03] MEDS: ENOXAPARIN 40 MG/0.4 ML DISP.SYRIN. SQ SCH (20:06)
[2016-05-03] MEDS: LATANOPROST 0.005% OPHTH SOLUTION 2.5ML BOTTLE. OU SCH (21:00)
[2016-05-03] MEDS: ZOLPIDEM 5 MG TABLET. PO PRN (21:58)
[2016-05-03 23:25] VITALS: BP 123/72
[2016-05-04] VITALS (13 sets, daily range): BP systolic 95–127; BP diastolic 60–87
[2016-05-04] MEDS: INSULIN ASPART 300 UNITS/3 ML INSULN.PEN SQ SCH ×3 (08:00→17:44)
[2016-05-04] MEDS: POTASSIUM CHLORIDE 10 MEQ TABLET.ER. PO SCH (09:15)
[2016-05-04] MEDS: FUROSEMIDE 40 MG TABLET PO SCH (09:16)
--- NOTE | 2016-05-04 09:56 | PDOC ---
PULMONARY PROGRESS NOTES Subjective on 02, sob, better, no cp, has cough, no pain. has post nasal drip Vitals Vital Signs Date Time Temp Pulse Resp B/P Pulse Ox O2 Delivery O2 Flow Rate FiO2 05/04/16 08:00 Room Air 05/04/16 07:51 98.5 100 14 106/87 88 98.5 Comments ros as mentioned as above other sys otherwise neg ROS: No Nausea, No Chest Pain, No Abdominal Pain, No Increase Cough General: Alert, No acute distress HEENT: Other (nc at perrl, throat clear, nose inflamed mucosa) Lungs: Crackles Cardiovascular: S1, S2 Abdomen: Soft, Non-tender, Other (no mass) Neuro Exam: Alert, Oriented Extremities: Other (1=edema) Skin: Warm Labs Laboratory Tests Test 05/02/16 11:30 05/02/16 15:10 05/02/16 18:24 05/02/16 21:01 Glucose (Fingerstick) 162mg/dL (70-99) 196mg/dL (70-99) 148mg/dL (70-99) Sodium Level 137mmol/L (136-145) Potassium Level 4.0mmol/L (3.5-5.1) Chloride Level 101mmol/L (98-107) Carbon Dioxide Level 28mmol/L (21-32) Anion Gap 8 (6-14) Blood Urea Nitrogen 14mg/dL (7-20) Creatinine 0.8mg/dL (0.6-1.0) Estimated GFR (Cockcroft-Gault) 72.4 Glucose Level 111mg/dL (70-99) Calcium Level 8.5mg/dL (8.5-10.1) HIV-1 Antibody Non reactive (Non Reactive) Test 05/03/16 03:20 05/03/16 07:54 05/03/16 11:57 05/03/16 16:26 White Blood Count 9.8x10^3/uL (4.0-11.0) Red Blood Count 4.06x10^6/uL (3.50-5.40) Hemoglobin 9.6g/dL (12.0-15.5) Hematocrit 30.2% (36.0-47.0) Mean Corpuscular Volume 74fL (79-100) Mean Corpuscular Hemoglobin 24pg (25-35) Mean Corpuscular Hemoglobin Concent 32g/dL (31-37) Red Cell Distribution Width 17.1% (11.5-14.5) Platelet Count 382x10^3/uL (140-400) Neutrophils (%) (Auto) 58% (31-73) Lymphocytes (%) (Auto) 33% (24-48) Monocytes (%) (Auto) 7% (0-9) Eosinophils (%) (Auto) 1% (0-3) Basophils (%) (Auto) 1% (0-3) Neutrophils # (Auto) 5.6x10^3uL (1.8-7.7) Lymphocytes # (Auto) 3.3x10^3/uL (1.0-4.8) Monocytes # (Auto) 0.7x10^3/uL (0.0-1.1) Eosinophils # (Auto) 0.1x10^3/uL (0.0-0.7) Basophils # (Auto) 0.1x10^3/uL (0.0-0.2) Sodium Level 137mmol/L (136-145) Potassium Level 4.0mmol/L (3.5-5.1) Chloride Level 100mmol/L (98-107) Carbon Dioxide Level 25mmol/L (21-32) Anion Gap 12 (6-14) Blood Urea Nitrogen 15mg/dL (7-20) Creatinine 0.9mg/dL (0.6-1.0) Estimated GFR (Cockcroft-Gault) 63.2 BUN/Creatinine Ratio 17 (6-20) Glucose Level 139mg/dL (70-99) Calcium Level 8.5mg/dL (8.5-10.1) Total Bilirubin 0.6mg/dL (0.2-1.0) Aspartate Amino Transf (AST/SGOT) 32U/L (15-37) Alanine Aminotransferase (ALT/SGPT) 44U/L (14-59) Alkaline Phosphatase 147U/L (46-116) Total Protein 5.9g/dL (6.4-8.2) Albumin 2.7g/dL (3.4-5.0) Albumin/Globulin Ratio 0.8 (1.0-1.7) Glucose (Fingerstick) 140mg/dL (70-99) 127mg/dL (70-99) 148mg/dL (70-99) Test 05/03/16 20:34 05/04/16 07:55 Glucose (Fingerstick) 161mg/dL (70-99) 141mg/dL (70-99) Laboratory Tests Test 05/03/16 11:57 05/03/16 16:26 05/03/16 20:34 05/04/16 07:55 Glucose (Fingerstick) 127mg/dL (70-99) 148mg/dL (70-99) 161mg/dL (70-99) 141mg/dL (70-99) Medications Active Scripts Medications Dose Route/Sig Days Date Category Potassium Chloride 10 Meq Tablet.er 10 Meq PO DAILY 04/30/16 Reported Furosemide 40 Mg Tablet 40 Mg PO DAILY 04/30/16 Reported Ambien (Zolpidem Tartrate) 10 Mg Tablet 10 Mg PO HS PRN 04/30/16 Reported Lumigan (Bimatoprost) 2.5 Ml Drops 2 Drop EACHEYE QHS 04/30/16 Reported Atorvastatin Calcium 10 Mg Tablet 10 Mg PO DAILY 04/30/16 Reported Losartan Potassium 25 Mg Tablet 25 Mg PO DAILY 04/30/16 Reported Metformin Hcl 500 Mg Tablet 1 Tab PO BID 04/30/[address] reviewed, 1. Negative for pulmonary embolus. 2.Bilateral effusions. 3.Atelectasis in the lower lobes. 4. Subpleural pulmonary nodule right lower lobe. 5. Fluid about the spleen with irregularity of the spleen possibly a splenic laceration clinical correlation would be of benefit. 6. Indistinctness at the tail of pancreas which could be secondary to the splenic injury are pancreatitis. 7. Splenic artery aneurysm 8. Atrophy upper pole left kidney Impression . 1. Pulmonary hypertension with her recent echocardiogram estimating pulmonary artery pressures of 91 mmHg. I suspect this may be primary pulmonary hypertension, clinically I could not identify a cause for secondary pulmonary hypertension. 2. Negative CT for pulmonary emboli. 3. Acute right-sided heart failure. 4. Progressive dyspnea secondary to above. 5. Mild diastolic dysfunction/ LVH, Does not explain severity of PA pressure. 6. Negative venous Doppler of the lower extremities. 7. Spontaneous splenic laceration of unclear etiology, no intervention per surgery 8. small RLL sub-pleural nodule Plan . 1. MILKA, neg, I doubt the patient has any autoimmune disease. 2. HIV status, neg. 3. Nocturnal desaturation study. 4. Confirm pulmonary pressures with right-sided heart catheterization and vasodilator challenge per protocol. 5. We will review the above and make further recommendations. 6. Improve nutrition status, small effusions could be due to low oncotic pressure 7. f/u ct chest for lung nodule in 4 months/ low risk for malignancy d/w patient answered all of her Qs re pulm htn, tx. If it turns out to be primary pulmonary HTN, she can either follow up with us in office or if she prefers we can arrange her to be seen at Pulmonary HTN clinic, she is leaning toward DAVID Crane MD May 04, 2016 09:56
--- NOTE | 2016-05-04 10:33 | PDOC ---
PROGRESS NOTES Chief Complaint Chief Complaint Acute hypoxic respir failure ASSESSMENT AND PLAN: 1. Primary pulm HTN: severe pA 91, idiopathic? 1. CHF: 2/2 above. responded well to diuresis. 2. DM2: well controlled; 3. CKD2: no acute issues 4. Anemia: microcytic. 5. Atrophic left kidney 6. SPleenic lac - hemodynamically stable 7. Asymptomatic cholelithiasis History of Present Illness History of Present Illness Some SOA at long walks NO CP NO leg swelling SOno neg for thromboembolic Pt denies known CAD or lung issues NOn smoker Likely PA idiopathic Asks about [facility] Discussed with her PAH and its 5 classes and tx Splenic lac on images, denies trauma Educated on it -- avoiding trauma/contact sports etc and things to WOF in futVerbal reports from RN thoughts about [facility] transfer from consults?? PLAN: [facility] later 2 PM Vitals Vitals Vital Signs Date Time Temp Pulse Resp B/P Pulse Ox O2 Delivery O2 Flow Rate FiO2 05/04/16 08:00 Room Air 05/04/16 07:51 98.5 100 14 106/87 88 98.5 Physical Exam General: Alert, Oriented X3, Cooperative, No acute distress Heart: Regular rate Lungs: Crackles Abdomen: Soft, No tenderness Extremities: No cyanosis, No edema Skin: No rashes Labs LABS Laboratory Tests Test 05/03/16 11:57 05/03/16 16:26 05/03/16 20:34 05/04/16 07:55 Glucose (Fingerstick) 127mg/dL (70-99) 148mg/dL (70-99) 161mg/dL (70-99) 141mg/dL (70-99) Review of Systems Review of Systems neg all 14 pt Assessment and Plan Assessmemt and Plan Problems Medical Problems: (1) Edema Status: Acute (2) Fatigue Status: Acute (3) Malaise Status: Acute (4) Shortness of breath Status: Acute Problems: Comment Review of Relevant I have reviewed the following items aldair (where applicable) has been applied. Labs Laboratory Tests Test 05/02/16 11:30 05/02/16 15:10 05/02/16 18:24 05/02/16 21:01 Glucose (Fingerstick) 162mg/dL (70-99) 196mg/dL (70-99) 148mg/dL (70-99) Sodium Level 137mmol/L (136-145) Potassium Level 4.0mmol/L (3.5-5.1) Chloride Level 101mmol/L (98-107) Carbon Dioxide Level 28mmol/L (21-32) Anion Gap 8 (6-14) Blood Urea Nitrogen 14mg/dL (7-20) Creatinine 0.8mg/dL (0.6-1.0) Estimated GFR (Cockcroft-Gault) 72.4 Glucose Level 111mg/dL (70-99) Calcium Level 8.5mg/dL (8.5-10.1) HIV-1 Antibody Non reactive (Non Reactive) Test 05/03/16 03:20 05/03/16 07:54 05/03/16 11:57 05/03/16 16:26 White Blood Count 9.8x10^3/uL (4.0-11.0) Red Blood Count 4.06x10^6/uL (3.50-5.40) Hemoglobin 9.6g/dL (12.0-15.5) Hematocrit 30.2% (36.0-47.0) Mean Corpuscular Volume 74fL (79-100) Mean Corpuscular Hemoglobin 24pg (25-35) Mean Corpuscular Hemoglobin Concent 32g/dL (31-37) Red Cell Distribution Width 17.1% (11.5-14.5) Platelet Count 382x10^3/uL (140-400) Neutrophils (%) (Auto) 58% (31-73) Lymphocytes (%) (Auto) 33% (24-48) Monocytes (%) (Auto) 7% (0-9) Eosinophils (%) (Auto) 1% (0-3) Basophils (%) (Auto) 1% (0-3) Neutrophils # (Auto) 5.6x10^3uL (1.8-7.7) Lymphocytes # (Auto) 3.3x10^3/uL (1.0-4.8) Monocytes # (Auto) 0.7x10^3/uL (0.0-1.1) Eosinophils # (Auto) 0.1x10^3/uL (0.0-0.7) Basophils # (Auto) 0.1x10^3/uL (0.0-0.2) Sodium Level 137mmol/L (136-145) Potassium Level 4.0mmol/L (3.5-5.1) Chloride Level 100mmol/L (98-107) Carbon Dioxide Level 25mmol/L (21-32) Anion Gap 12 (6-14) Blood Urea Nitrogen 15mg/dL (7-20) Creatinine 0.9mg/dL (0.6-1.0) Estimated GFR (Cockcroft-Gault) 63.2 BUN/Creatinine Ratio 17 (6-20) Glucose Level 139mg/dL (70-99) Calcium Level 8.5mg/dL (8.5-10.1) Total Bilirubin 0.6mg/dL (0.2-1.0) Aspartate Amino Transf (AST/SGOT) 32U/L (15-37) Alanine Aminotransferase (ALT/SGPT) 44U/L (14-59) Alkaline Phosphatase 147U/L (46-116) Total Protein 5.9g/dL (6.4-8.2) Albumin 2.7g/dL (3.4-5.0) Albumin/Globulin Ratio 0.8 (1.0-1.7) Glucose (Fingerstick) 140mg/dL (70-99) 127mg/dL (70-99) 148mg/dL (70-99) Test 05/03/16 20:34 05/04/16 07:55 Glucose (Fingerstick) 161mg/dL (70-99) 141mg/dL (70-99) Laboratory Tests Test 05/03/16 11:57 05/03/16 16:26 05/03/16 20:34 05/04/16 07:55 Glucose (Fingerstick) 127mg/dL (70-99) 148mg/dL (70-99) 161mg/dL (70-99) 141mg/dL (70-99) Microbiology 04/30/16 Urine Culture - Final, Complete 04/30/16 Urine Culture Result 1 (DENA) - Final, Complete Medications Current Medications Albuterol/ Ipratropium (Duoneb) 3 ml 1X ONCE NEB Last administered on t 17:26; Start 04/30/16 at 17:00; Stop 04/30/16 at 17:01; Status DC Ondansetron HCl (Zofran) 4 mg PRN Q6HRS PRN IV NAUSEA/VOMITING; Start 04/30/16 at 20:45 Acetaminophen/ Hydrocodone Bitart (Lortab 5/325) 1 tab PRN Q4HRS PRN PO MODERATE - SEVERE PAIN; Start 04/30/16 at 20:45 Acetaminophen (Tylenol) 650 mg PRN Q6HRS PRN PO MILD PAIN / TEMP; Start at 20:45 Enoxaparin Sodium (Lovenox 40mg Syringe) 40 mg Q24H SQ Last administered on 20:06; Start 04/30/16 at 21:00 Albuterol Sulfate (Ventolin Neb Soln) 2.5 mg PRN Q4HRS PRN NEB SHORTNESS OF BREATH Last administered on 05/01/16 21:27; Start 04/30/16 at 20:45 Furosemide (Lasix) 40 mg 1X ONCE IVP Last administered on 04/30/16 23:40; Start 04/30/16 at 21:30; Stop 04/30/16 at 21:31; Status DC Atorvastatin Calcium (Lipitor) 10 mg QHS PO Last administered on 05/03/16 20: 06; Start 05/01/16 at 21:00 Furosemide (Lasix) 40 mg DAILY PO Last administered on 05/04/16 09:16; Start 05/02/16 at 09:00 Losartan Potassium (Cozaar) 25 mg DAILY PO ; Start 05/01/16 at 13:00; Stop 05/01 at 17:55; Status DC Latanoprost (Xalatan) 1 drop QHS OU ; Start 05/01/16 at 21:00 Potassium Chloride (Klor-Con) 10 meq DAILYWBKFT PO Last administered on 09:15; Start 05/01/16 at 13:00 Zolpidem Tartrate (Ambien) 5 mg PRN QHS PRN PO INSOMNIA Last administered on 21:58; Start 05/01/16 at 12:45 Insulin Aspart (Novolog) 0-7 UNITS TIDWMEALS SQ Last administered on 05/02/16 18:43; Start 05/01/16 at 17:00 Dextrose 12.5 gm PRN Q15MIN PRN IV SEE COMMENTS; Start 05/01/16 at 12:45 Iohexol (Omnipaque 300 Mg/ml) 75 ml 1X ONCE IV ; Start 05/01/16 at 17:30; Stop 05/01/16 at 17:31; Status DC Info 1 each 1 each PRN DAILY PRN MC SEE COMMENTS; Start 05/01/16 at 17:30; Stop 05/02/16 at 15:51; Status DC Sodium Chloride (Iv Sodium Chloride 0.9% 500ml Bag) 500 ml @ 500 mls/hr 1X ONCE IV Last administered on 05/02/16 14:15; Start 05/02/16 at 14:15; Stop at 15:14; Status DC Iohexol (Omnipaque 300 Mg/ml) 75 ml 1X ONCE IV Last administered on 05/02/16 16:13; Start 05/02/16 at 16:00; Stop 05/02/16 at 16:01; Status DC Iohexol (Omnipaque 240 Mg/ml) 30 ml 1X ONCE PO Last administered on 05/02/16 16:13; Start 05/02/16 at 16:00; Stop 05/02/16 at 16:01; Status DC Info (Do NOT chart on this entry -- for MONITORING) 1 each PRN DAILY PRN MC SEE COMMENTS; Start 05/02/16 at 16:00; Stop 05/04/16 at 15:59 Montelukast Sodium (Singulair) 10 mg QHS PO ; Start 05/04/16 at 21:00 Active Scripts Active Reported Potassium Chloride 10 Meq Tablet.er 10 Meq PO DAILY Furosemide 40 Mg Tablet 40 Mg PO DAILY Ambien (Zolpidem Tartrate) 10 Mg Tablet 10 Mg PO HS PRN Lumigan (Bimatoprost) 2.5 Ml Drops 2 Drop EACHEYE QHS Atorvastatin Calcium 10 Mg Tablet 10 Mg PO DAILY Losartan Potassium 25 Mg Tablet 25 Mg PO DAILY Metformin Hcl 500 Mg Tablet 1 Tab PO BID Vitals/I & O Vital Sign - Last 24 Hours 05/03/16 05/03/16 05/03/16 05/03/16 11:00 15:00 19:10 19:40 Temp 97.8 97.9 97.9 97.8 97.9 97.9 Pulse 94 101 105 Resp 18 18 20 B/P 133/73 119/74 132/70 Pulse Ox 93 94 95 O2 Delivery Room Air Room Air Room Air Room Air 05/03/16 05/04/16 05/04/16 05/04/16 23:25 03:15 07:51 08:00 Temp 98.3 98.7 98.5 98.3 98.7 98.5 Pulse 103 103 100 Resp 18 16 14 B/P 123/72 106/76 106/87 Pulse Ox 96 95 88 O2 Delivery Room Air Room Air Room Air Intake and Output 05/03/16 05/03/16 05/04/16 15:00 23:00 07:00 Intake Total 220 ml 840 ml 100 ml Output Total 750 ml 400 ml Balance 220 ml 90 ml -300 ml ALFIE PALMA MD May 04, 2016 10:33
--- NOTE | 2016-05-04 10:35 | PDOC ---
VERNON PAULA CLERK SPECIALIST 05/04/16 1034: SURGICAL PROGRESS NOTE Subjective feels really well today cath planned today Vital Signs Vital Signs Date Time Temp Pulse Resp B/P Pulse Ox O2 Delivery O2 Flow Rate FiO2 05/04/16 08:00 Room Air 05/04/16 07:51 98.5 100 14 106/87 88 98.5 I&O Intake and Output 05/04/16 07:00 Intake Total 1160 ml Output Total 1150 ml Balance 10 ml Intake Oral 1160 ml Output Urine Total 1150 ml General: Alert, Oriented X3, Cooperative, No acute distress Abdomen: Soft, No tenderness Labs Laboratory Tests Test 05/02/16 11:30 05/02/16 15:10 05/02/16 18:24 05/02/16 21:01 Glucose (Fingerstick) 162mg/dL (70-99) 196mg/dL (70-99) 148mg/dL (70-99) Sodium Level 137mmol/L (136-145) Potassium Level 4.0mmol/L (3.5-5.1) Chloride Level 101mmol/L (98-107) Carbon Dioxide Level 28mmol/L (21-32) Anion Gap 8 (6-14) Blood Urea Nitrogen 14mg/dL (7-20) Creatinine 0.8mg/dL (0.6-1.0) Estimated GFR (Cockcroft-Gault) 72.4 Glucose Level 111mg/dL (70-99) Calcium Level 8.5mg/dL (8.5-10.1) HIV-1 Antibody Non reactive (Non Reactive) Test 05/03/16 03:20 05/03/16 07:54 05/03/16 11:57 05/03/16 16:26 White Blood Count 9.8x10^3/uL (4.0-11.0) Red Blood Count 4.06x10^6/uL (3.50-5.40) Hemoglobin 9.6g/dL (12.0-15.5) Hematocrit 30.2% (36.0-47.0) Mean Corpuscular Volume 74fL (79-100) Mean Corpuscular Hemoglobin 24pg (25-35) Mean Corpuscular Hemoglobin Concent 32g/dL (31-37) Red Cell Distribution Width 17.1% (11.5-14.5) Platelet Count 382x10^3/uL (140-400) Neutrophils (%) (Auto) 58% (31-73) Lymphocytes (%) (Auto) 33% (24-48) Monocytes (%) (Auto) 7% (0-9) Eosinophils (%) (Auto) 1% (0-3) Basophils (%) (Auto) 1% (0-3) Neutrophils # (Auto) 5.6x10^3uL (1.8-7.7) Lymphocytes # (Auto) 3.3x10^3/uL (1.0-4.8) Monocytes # (Auto) 0.7x10^3/uL (0.0-1.1) Eosinophils # (Auto) 0.1x10^3/uL (0.0-0.7) Basophils # (Auto) 0.1x10^3/uL (0.0-0.2) Sodium Level 137mmol/L (136-145) Potassium Level 4.0mmol/L (3.5-5.1) Chloride Level 100mmol/L (98-107) Carbon Dioxide Level 25mmol/L (21-32) Anion Gap 12 (6-14) Blood Urea Nitrogen 15mg/dL (7-20) Creatinine 0.9mg/dL (0.6-1.0) Estimated GFR (Cockcroft-Gault) 63.2 BUN/Creatinine Ratio 17 (6-20) Glucose Level 139mg/dL (70-99) Calcium Level 8.5mg/dL (8.5-10.1) Total Bilirubin 0.6mg/dL (0.2-1.0) Aspartate Amino Transf (AST/SGOT) 32U/L (15-37) Alanine Aminotransferase (ALT/SGPT) 44U/L (14-59) Alkaline Phosphatase 147U/L (46-116) Total Protein 5.9g/dL (6.4-8.2) Albumin 2.7g/dL (3.4-5.0) Albumin/Globulin Ratio 0.8 (1.0-1.7) Glucose (Fingerstick) 140mg/dL (70-99) 127mg/dL (70-99) 148mg/dL (70-99) Test 05/03/16 20:34 05/04/16 07:55 Glucose (Fingerstick) 161mg/dL (70-99) 141mg/dL (70-99) Laboratory Tests Test 05/03/16 11:57 05/03/16 16:26 05/03/16 20:34 05/04/16 07:55 Glucose (Fingerstick) 127mg/dL (70-99) 148mg/dL (70-99) 161mg/dL (70-99) 141mg/dL (70-99) Problem List Problems Medical Problems: (1) Edema Status: Acute (2) Fatigue Status: Acute (3) Malaise Status: Acute (4) Shortness of breath Status: Acute Assessment/Plan splenic laceration hgb stable, benign exam Problems: NASIR MATHEWS MD 05/04/16 1241: SURGICAL PROGRESS NOTE Assessment/Plan Pt seen and examined. Agree with Ms. Paula's note Pt reports feeling better abd soft, ND, NTTP cont w/u per cards would like pt to f/u in office as outpt to f/u splenic artery aneurysm and splenic lac Problems: VERNON PAULA APRN May 04, 2016 10:34 NASIR MATHEWS MD May 04, 2016 12:41
[2016-05-04] MEDS ORDERED: LIDOCAINE 2% 20 ML VIAL. ONE (12:27)
[2016-05-04] MEDS ORDERED: FENTANYL PF 100 MCG/2 ML VIAL. ONE (12:46)
[2016-05-04] MEDS ORDERED: MIDAZOLAM HCL 2 MG/2 ML VIAL. ONE (12:47)
[2016-05-04] MEDS ORDERED: NIFEDIPINE 10 MG CAPSULE PO ONE (13:00)
[2016-05-04] MEDS ORDERED: FENTANYL PF 100 MCG/2 ML VIAL. IV ONE (13:15)
[2016-05-04] MEDS ORDERED: MIDAZOLAM HCL 2 MG/2 ML VIAL. IV ONE (13:15)
[2016-05-04] MEDS ORDERED: LIDOCAINE 2% 20 ML VIAL. IJ ONE (13:15)
[2016-05-04] MEDS ORDERED: IOHEXOL 300 MG/ML 100ML VIAL. IART ONE (13:15)
[2016-05-04] MEDS ORDERED: CONTRAST GIVEN MC PRN (13:15)
--- NOTE | 2016-05-04 14:44 | PDOC4 ---
PROCEDURE Procedure PROCEDURE NOTE Procedure: Right heart catheterization Preoperative diagnosis: Pulmonary hypertension Postoperative diagnosis: The same. Procedure: This patient is a 61-year-old lady that is a nonsmoker and has no previous history of heart disease. She has been having progressive episodes of shortness of breath for some time especially in the last month to the point that she cannot walk 100 feet without being short of breath. The patient came in due to the fatigue and dyspnea and was seen and evaluated and admitted. After admission she had an echocardiogram done that showed a preserved left ventricular function and no significant valvular disease of the aorta or the mitral valves. The patient had severe tricuspid insufficiency and severe pulmonary hypertension. The estimated pulmonary artery pressure was 91 mmHg. The patient was seen and evaluated by the optoelectronics engineer for the pulmonary hypertension and it was decided to do a right heart catheterization to accurately assess the pressures. The patient was brought to the catheter lab in an elective fashion after obtaining informed consent. The right groin area was prepped and draped in the usual fashion. The area was infiltrated with Xylocaine to obtain topical anesthesia. Using Seldinger technique a Cordis sheath was inserted into the femoral vein. A [place]-Ayo catheter was then advanced all the way to the RA then into the RV and after some manipulation and with the utilization of a guidewire we were able to advance the [place]-Ayo catheter up into the pulmonary artery. The catheter was advanced all the way into the wedge position. Wedge pressures were then recorded. Following that the balloon was deflated and PA pressures were recorded. The patient then received vasodilators and afterwards the PA pressure was recorded again. Pullback pressures were then done from the PDA to the RV and from the RV to the RA. The catheter was then removed. The sheath was then pulled and pressure was held for about 10 minutes after which appeared to be no active bleeding. A dressing was applied to the groin and the patient was transferred to her room in satisfactory condition after tolerating the procedure rather well. Findings: Pre-vasodilators pressures: Pulmonary wedge pressure mean of 29 mmHg Pulmonary artery pressure 72/30 mmHg. Post-vasodilator pressures: PA 60/28 mmHg RV 60 over 18 mmHg. RA 22 mmHg Impression: This patient has severe pulmonary hypertension and the pressures appeared to respond to medications. Further workup and treatment as per the optoelectronics engineer. NANCY MUNOZ MD May 04, 2016 14:44
[2016-05-04] MEDS: LATANOPROST 0.005% OPHTH SOLUTION 2.5ML BOTTLE. OU SCH (21:00)
[2016-05-04] MEDS ORDERED: MONTELUKAST SODIUM 10 MG TABLET. PO SCH (21:00)
[2016-05-04] MEDS: ATORVASTATIN CALCIUM 10 MG TABLET. PO SCH (21:07)
[2016-05-04] MEDS: ENOXAPARIN 40 MG/0.4 ML DISP.SYRIN. SQ SCH (21:08)
[2016-05-04] MEDS: ZOLPIDEM 5 MG TABLET. PO PRN (22:07)
[2016-05-05 03:00] VITALS: BP 115/69
--- NOTE | 2016-05-05 07:21 | PDOC ---
PULMONARY PROGRESS NOTES Subjective sob, better, no cp, has cough, no pain. has post nasal drip Vitals Vital Signs Date Time Temp Pulse Resp B/P Pulse Ox O2 Delivery O2 Flow Rate FiO2 05/05/16 03:00 98.0 95 18 115/69 95 Room Air 98.0 05/04/16 21:08 2.0 Comments ros as mentioned as above other sys otherwise neg ROS: No Nausea, No Chest Pain, No Abdominal Pain, No Increase Cough General: Alert, No acute distress HEENT: Other (nc at perrl, throat clear, nose inflamed mucosa) Lungs: Crackles Cardiovascular: S1, S2 Abdomen: Soft, Non-tender, Other (no mass) Neuro Exam: Alert, Oriented Extremities: Other (1=edema) Skin: Warm Labs Laboratory Tests Test 05/03/16 07:54 05/03/16 11:57 05/03/16 16:26 05/03/16 20:34 Glucose (Fingerstick) 140mg/dL (70-99) 127mg/dL (70-99) 148mg/dL (70-99) 161mg/dL (70-99) Test 05/04/16 07:55 05/04/16 12:18 05/04/16 17:00 05/04/16 20:39 Glucose (Fingerstick) 141mg/dL (70-99) 139mg/dL (70-99) 251mg/dL (70-99) 130mg/dL (70-99) Laboratory Tests Test 05/04/16 07:55 05/04/16 12:18 05/04/16 17:00 05/04/16 20:39 Glucose (Fingerstick) 141mg/dL (70-99) 139mg/dL (70-99) 251mg/dL (70-99) 130mg/dL (70-99) Medications Active Scripts Medications Dose Route/Sig Days Date Category Potassium Chloride 10 Meq Tablet.er 10 Meq PO DAILY 04/30/16 Reported Furosemide 40 Mg Tablet 40 Mg PO DAILY 04/30/16 Reported Ambien (Zolpidem Tartrate) 10 Mg Tablet 10 Mg PO HS PRN 04/30/16 Reported Lumigan (Bimatoprost) 2.5 Ml Drops 2 Drop EACHEYE QHS 04/30/16 Reported Atorvastatin Calcium 10 Mg Tablet 10 Mg PO DAILY 04/30/16 Reported Losartan Potassium 25 Mg Tablet 25 Mg PO DAILY 04/30/16 Reported Metformin Hcl 500 Mg Tablet 1 Tab PO BID 04/30/[address] reviewed, 1. Negative for pulmonary embolus. 2.Bilateral effusions. 3.Atelectasis in the lower lobes. 4. Subpleural pulmonary nodule right lower lobe. 5. Fluid about the spleen with irregularity of the spleen possibly a splenic laceration clinical correlation would be of benefit. 6. Indistinctness at the tail of pancreas which could be secondary to the splenic injury are pancreatitis. 7. Splenic artery aneurysm 8. Atrophy upper pole left kidney Impression . 1. Pulmonary hypertension with her recent echocardiogram estimating pulmonary artery pressures of 91 mmHg. I suspect this may be primary pulmonary hypertension, clinically I could not identify a cause for secondary pulmonary hypertension. 2. Negative CT for pulmonary emboli. 3. Acute right-sided heart failure. 4. Progressive dyspnea secondary to above. 5. Mild diastolic dysfunction/ LVH, Does not explain severity of PA pressure. 6. Negative venous Doppler of the lower extremities. 7. Spontaneous splenic laceration of unclear etiology, no intervention per surgery 8. small RLL sub-pleural nodule 9. allergic rhinitis Plan . 1. MILKA, neg 2. HIV status, neg. 3. cont lasix. kcl, singulair. 4. Confirm pulmonary pressures with right-sided heart catheterization and vasodilator challenge per protocol. pap, 72/30, post vasodilator, 60/28 5. Improve nutrition status, small effusions could be due to low oncotic pressure 6. f/u ct chest for lung nodule in 4 months/ low risk for malignancy d/w patient answered all of her Qs re pulm htn tx. suspect primary pulmonary HTN, she can either follow up with us in office or if she prefers we can arrange her to be seen at Pulmonary HTN clinic, she wants to go to [facility] today, call dr Willard's office on Saturday to arrange for pulm htn clinic appointment DAVID ANDRADE MD May 05, 2016 07:21
[2016-05-05 07:37] VITALS: BP 104/74
[2016-05-05] MEDS: FUROSEMIDE 40 MG TABLET PO SCH (07:40)
[2016-05-05] MEDS: POTASSIUM CHLORIDE 10 MEQ TABLET.ER. PO SCH (07:40)
[2016-05-05] MEDS: INSULIN ASPART 300 UNITS/3 ML INSULN.PEN SQ SCH ×2 (07:42→12:22)
--- NOTE | 2016-05-05 09:20 | PDOC ---
SURGICAL PROGRESS NOTE Subjective feeling better tolerating diet no abdominal pain Vital Signs Vital Signs Date Time Temp Pulse Resp B/P Pulse Ox O2 Delivery O2 Flow Rate FiO2 05/05/16 07:37 98.4 99 19 104/74 96 Room Air 98.4 05/04/16 21:08 2.0 I&O Intake and Output 05/05/16 07:00 Intake Total 450 ml Output Total 1950 ml Balance -1500 ml Intake Oral 450 ml Output Urine Total 1950 ml # Bowel Movements 2 General: Alert, Oriented X3, Cooperative, No acute distress Abdomen: Normal bowel sounds, Soft, No tenderness, No hepatosplenomegaly, No masses Labs Laboratory Tests Test 05/03/16 11:57 05/03/16 16:26 05/03/16 20:34 05/04/16 07:55 Glucose (Fingerstick) 127mg/dL (70-99) 148mg/dL (70-99) 161mg/dL (70-99) 141mg/dL (70-99) Test 05/04/16 12:18 05/04/16 17:00 05/04/16 20:39 05/05/16 07:41 Glucose (Fingerstick) 139mg/dL (70-99) 251mg/dL (70-99) 130mg/dL (70-99) 136mg/dL (70-99) Laboratory Tests Test 05/04/16 12:18 05/04/16 17:00 05/04/16 20:39 05/05/16 07:41 Glucose (Fingerstick) 139mg/dL (70-99) 251mg/dL (70-99) 130mg/dL (70-99) 136mg/dL (70-99) Problem List Problems Medical Problems: (1) Edema Status: Acute (2) Fatigue Status: Acute (3) Malaise Status: Acute (4) Shortness of breath Status: Acute Assessment/Plan Dr Turpin would like pt to f/u in office as outpt to f/u splenic artery aneurysm and splenic lac--office information placed in discharge instructions Problems: VERNON PAULA APRN May 05, 2016 09:20
[2016-05-05 11:07] VITALS: BP 120/70
--- NOTE | 2016-05-05 11:46 | PDOC3 ---
Discharge Summary Visit Information Date of Admission: Apr 30, 2016 Date of Discharge: May 05, 2016 Admitting Diagnosis Comment: 1. Primary pulm HTN: severe pA 91, idiopathic? 1. CHF: 2/2 above. responded well to diuresis. 2. DM2: well controlled; 3. CKD2: no acute issues 4. Anemia: microcytic. 5. Atrophic left kidney 6. SPleenic lac - hemodynamically stable 7. Asymptomatic cholelithiasis Final Diagnosis Problems Medical Problems: (1) Edema Status: Acute (2) Fatigue Status: Acute (3) Malaise Status: Acute (4) Shortness of breath Status: Acute (5) Splenic laceration Status: Acute Brief Hospital Course Allergies Allergies Coded Allergies Type Severity Reaction Last Updated Verified No Known Drug Allergies 04/30/16 No Vital Signs Vital Signs Date Time Temp Pulse Resp B/P Pulse Ox O2 Delivery O2 Flow Rate FiO2 05/05/16 11:07 98.3 100 18 120/70 94 Room Air 98.3 05/04/16 21:08 2.0 Lab Results Laboratory Tests Test 05/03/16 11:57 05/03/16 16:26 05/03/16 20:34 05/04/16 07:55 Glucose (Fingerstick) 127mg/dL (70-99) 148mg/dL (70-99) 161mg/dL (70-99) 141mg/dL (70-99) Test 05/04/16 12:18 05/04/16 17:00 05/04/16 20:39 05/05/16 07:41 Glucose (Fingerstick) 139mg/dL (70-99) 251mg/dL (70-99) 130mg/dL (70-99) 136mg/dL (70-99) Test 05/05/16 11:10 Glucose (Fingerstick) 165mg/dL (70-99) Laboratory Tests Test 05/04/16 12:18 05/04/16 17:00 05/04/16 20:39 05/05/16 07:41 Glucose (Fingerstick) 139mg/dL (70-99) 251mg/dL (70-99) 130mg/dL (70-99) 136mg/dL (70-99) Test 05/05/16 11:10 Glucose (Fingerstick) 165mg/dL (70-99) Brief Hospital Course Ms. Huang is a 61 old female admitted for SOA, FOund to have severe PAH by echo and RHC, likely idiopathic as pt does not have left heart dse and also no thromboembolic dse (US neg). CAn get SOA after long walks, hemodynamically stable. Treated with PO lasix 40 and KCl 10. NEeded to hold losartan SBP 120s, Crea 1.1 on metformin, now crea 0.9,. CLeared from cards and pulmo to go home, ff up PAH clinic at Incidental splenic lac on CT imaging,. denies trauma. GS consulted- ff up as OP, . Hemodynamically stable Pt seen and examined Consults: cards, pulmo, GS proc: RHC (R heart cath) dc 35 mins > 50% education and counselling Discharge Information Condition at Discharge: Improved, Stable Follow Up: Weeks (2 weeks with GS< PAH clinic ) Disposition/Orders: D/C to Home Scheduled Atorvastatin Calcium (Atorvastatin Calcium) 10 MG PO DAILY (Reported) Bimatoprost (Lumigan) 2 DROP EACHEYE QHS (Reported) Furosemide (Furosemide) 40 MG PO DAILY (Reported) Losartan Potassium (Losartan Potassium) 25 MG PO DAILY (Reported) Metformin Hcl (Metformin Hcl) 1 TAB PO BID (Reported) Potassium Chloride (Potassium Chloride) 10 MEQ PO DAILY (Reported) Scheduled PRN Zolpidem Tartrate (Ambien) 10 MG PO HS PRN PRN INSOMNIA (Reported) ALFIE PALMA MD May 05, 2016 11:46
--- NOTE | 2016-05-05 14:00 | PDOC ---
PROGRESS NOTES Subjective Subjective No new complaints. Objective Objective Vital Signs Date Time Temp Pulse Resp B/P Pulse Ox O2 Delivery O2 Flow Rate FiO2 05/05/16 11:07 98.3 100 18 120/70 94 Room Air 98.3 05/04/16 21:08 2.0 Intake and Output 05/05/16 07:00 Intake Total 450 ml Output Total 1950 ml Balance -1500 ml Intake Oral 450 ml Output Urine Total 1950 ml # Bowel Movements 2 Physical Exam Physical Exam Growing doing fine and no apparent bleeding, no hematoma, no ecchymosis. Assessment Assessment Patient stable cardiac-campa. Further workup and treatment of the pulmonary hypertension as per the floor covering layer. Problems Medical Problems: (1) Edema Status: Acute (2) Fatigue Status: Acute (3) Malaise Status: Acute (4) Shortness of breath Status: Acute (5) Splenic laceration Status: Acute Comment Review of Relevant I have reviewed the following items aldair (where applicable) has been applied. Labs Laboratory Tests Test 05/03/16 16:26 05/03/16 20:34 05/04/16 07:55 05/04/16 12:18 Glucose (Fingerstick) 148mg/dL (70-99) 161mg/dL (70-99) 141mg/dL (70-99) 139mg/dL (70-99) Test 05/04/16 17:00 05/04/16 20:39 05/05/16 07:41 05/05/16 11:10 Glucose (Fingerstick) 251mg/dL (70-99) 130mg/dL (70-99) 136mg/dL (70-99) 165mg/dL (70-99) Laboratory Tests Test 05/04/16 17:00 05/04/16 20:39 05/05/16 07:41 05/05/16 11:10 Glucose (Fingerstick) 251mg/dL (70-99) 130mg/dL (70-99) 136mg/dL (70-99) 165mg/dL (70-99) Microbiology 04/30/16 Urine Culture - Final, Complete 04/30/16 Urine Culture Result 1 (DENA) - Final, Complete Medications Current Medications Albuterol/ Ipratropium (Duoneb) 3 ml 1X ONCE NEB Last administered on t 17:26; Start 04/30/16 at 17:00; Stop 04/30/16 at 17:01; Status DC Ondansetron HCl (Zofran) 4 mg PRN Q6HRS PRN IV NAUSEA/VOMITING; Start 04/30/16 at 20:45 Acetaminophen/ Hydrocodone Bitart (Lortab 5/325) 1 tab PRN Q4HRS PRN PO MODERATE - SEVERE PAIN Last administered on 05/04/16 21:08; Start 04/30/16 at 20:45 Acetaminophen (Tylenol) 650 mg PRN Q6HRS PRN PO MILD PAIN / TEMP; Start at 20:45 Enoxaparin Sodium (Lovenox 40mg Syringe) 40 mg Q24H SQ Last administered on 21:08; Start 04/30/16 at 21:00 Albuterol Sulfate (Ventolin Neb Soln) 2.5 mg PRN Q4HRS PRN NEB SHORTNESS OF BREATH Last administered on 05/01/16 21:27; Start 04/30/16 at 20:45 Furosemide (Lasix) 40 mg 1X ONCE IVP Last administered on 04/30/16 23:40; Start 04/30/16 at 21:30; Stop 04/30/16 at 21:31; Status DC Atorvastatin Calcium (Lipitor) 10 mg QHS PO Last administered on 05/04/16 21: 07; Start 05/01/16 at 21:00 Furosemide (Lasix) 40 mg DAILY PO Last administered on 05/05/16 07:40; Start 05/02/16 at 09:00 Losartan Potassium (Cozaar) 25 mg DAILY PO ; Start 05/01/16 at 13:00; Stop 05/01 at 17:55; Status DC Latanoprost (Xalatan) 1 drop QHS OU ; Start 05/01/16 at 21:00 Potassium Chloride (Klor-Con) 10 meq DAILYWBKFT PO Last administered on 07:40; Start 05/01/16 at 13:00 Zolpidem Tartrate (Ambien) 5 mg PRN QHS PRN PO INSOMNIA Last administered on 22:07; Start 05/01/16 at 12:45 Insulin Aspart (Novolog) 0-7 UNITS TIDWMEALS SQ Last administered on 05/05/16 12:22; Start 05/01/16 at 17:00 Dextrose 12.5 gm PRN Q15MIN PRN IV SEE COMMENTS; Start 05/01/16 at 12:45 Iohexol (Omnipaque 300 Mg/ml) 75 ml 1X ONCE IV ; Start 05/01/16 at 17:30; Stop 05/01/16 at 17:31; Status DC Info 1 each 1 each PRN DAILY PRN MC SEE COMMENTS; Start 05/01/16 at 17:30; Stop 05/02/16 at 15:51; Status DC Sodium Chloride (Iv Sodium Chloride 0.9% 500ml Bag) 500 ml @ 500 mls/hr 1X ONCE IV Last administered on 05/02/16 14:15; Start 05/02/16 at 14:15; Stop at 15:14; Status DC Iohexol (Omnipaque 300 Mg/ml) 75 ml 1X ONCE IV Last administered on 05/02/16 16:13; Start 05/02/16 at 16:00; Stop 05/02/16 at 16:01; Status DC Iohexol (Omnipaque 240 Mg/ml) 30 ml 1X ONCE PO Last administered on 05/02/16 16:13; Start 05/02/16 at 16:00; Stop 05/02/16 at 16:01; Status DC Info (Do NOT chart on this entry -- for MONITORING) 1 each PRN DAILY PRN MC SEE COMMENTS; Start 05/02/16 at 16:00; Stop 05/04/16 at 15:59; Status DC Montelukast Sodium (Singulair) 10 mg QHS PO Last administered on 05/04/16 21: 07; Start 05/04/16 at 21:00 Lidocaine HCl 20 ml 20 ml STK-MED ONCE .ROUTE ; Start 05/04/16 at 12:27; Stop at 12:28; Status DC Heparin Sodium/ Sodium Chloride 500 ml @ As Directed STK-MED ONCE .ROUTE ; Start 05/04/16 at 12:27; Stop 05/04/16 at 12:28; Status DC Fentanyl Citrate (Fentanyl 2ml Vial) 100 mcg STK-MED ONCE .ROUTE ; Start at 12:46; Stop 05/04/16 at 12:47; Status DC Midazolam HCl (Versed) 2 mg STK-MED ONCE .ROUTE ; Start 05/04/16 at 12:47; Stop 05/04/16 at 12:48; Status DC Nifedipine (Procardia) 10 mg 1X ONCE PO Last administered on 05/04/16 13:29; Start 05/04/16 at 13:00; Stop 05/04/16 at 13:02; Status DC Heparin Sodium/ Sodium Chloride 1,000 unit 1X ONCE IART Last administered on 13:28; Start 05/04/16 at 13:15; Stop 05/04/16 at 13:16; Status DC Midazolam HCl (Versed) 1 mg 1X ONCE IV Last administered on 05/04/16 13:27; Start 05/04/16 at 13:15; Stop 05/04/16 at 13:16; Status DC Fentanyl Citrate (Fentanyl 2ml Vial) 50 mcg 1X ONCE IV Last administered on 13:27; Start 05/04/16 at 13:15; Stop 05/04/16 at 13:16; Status DC Iohexol (Omnipaque 300 Mg/ml) 100 ml 1X ONCE IART ; Start 05/04/16 at 13:15; Stop 05/04/16 at 13:16; Status DC Lidocaine HCl 20 ml 1X ONCE IJ Last administered on 05/04/16 13:28; Start at 13:15; Stop 05/04/16 at 13:16; Status DC Info (Do NOT chart on this entry -- for MONITORING) 1 each PRN DAILY PRN MC SEE COMMENTS; Start 05/04/16 at 13:15; Stop 05/06/16 at 13:14 Active Scripts Active Reported Potassium Chloride 10 Meq Tablet.er 10 Meq PO DAILY Furosemide 40 Mg Tablet 40 Mg PO DAILY Ambien (Zolpidem Tartrate) 10 Mg Tablet 10 Mg PO HS PRN Lumigan (Bimatoprost) 2.5 Ml Drops 2 Drop EACHEYE QHS Atorvastatin Calcium 10 Mg Tablet 10 Mg PO DAILY Metformin Hcl 500 Mg Tablet 1 Tab PO BID Vitals/I & O Vital Sign - Last 24 Hours 05/04/16 05/04/16 05/04/16 05/04/16 14:00 14:15 14:30 14:45 Pulse 88 92 94 94 B/P 114/62 114/67 98/61 100/60 05/04/16 05/04/16 05/04/16 05/04/16 15:00 15:15 17:15 19:30 Temp 97.5 97.9 97.5 97.9 Pulse 90 90 92 100 Resp 16 20 B/P 95/61 103/61 115/72 109/69 Pulse Ox 94 95 O2 Delivery Room Air Room Air 05/04/16 05/04/16 05/04/16 05/04/16 20:00 21:08 22:08 23:10 Temp 98.2 98.2 Pulse 98 Resp 18 B/P 127/72 Pulse Ox 95 95 95 O2 Delivery Room Air Room Air Room Air Room Air O2 Flow Rate 2.0 05/05/16 05/05/16 05/05/16 05/05/16 03:00 07:37 08:00 11:07 Temp 98.0 98.4 98.3 98.0 98.4 98.3 Pulse 95 99 100 Resp 18 18 B/P 115/69 104/74 120/70 Pulse Ox 95 96 94 O2 Delivery Room Air Room Air Room Air Room Air Intake and Output 05/04/16 05/04/16 05/05/16 15:00 23:00 07:00 Intake Total 0 ml 450 ml Output Total 900 ml 950 ml 100 ml Balance -900 ml -500 ml -100 ml NANCY MUNOZ MD May 05, 2016 14:00
--- NOTE | 2016-05-07 18:43 | CARD ---
APPROVED REPORT PROCEDURE NARRATIVE [facility] PROCEDURE Patient Name: Genesis Huang Number: [id number] Date of : 1955atient Status: Discharged Inpatient Attending Doctor: Patrizia Tobias [facility] Number: [id number] PROCEDURE NOTE PROCEDURE Procedure PROCEDURE NOTE Procedure: Right heart catheterization Preoperative diagnosis: Pulmonary hypertension Postoperative diagnosis: The same. Procedure: This patient is a 61-year-old lady that is a nonsmoker and has no previous history of heart disease. She has been having progressive episodes of shortness of breath for some time especially in the last month to the point that she cannot walk 100 feet without being short of breath. The patient came in due to the fatigue and dyspnea and was seen and evaluated and admitted. After admission she had an echocardiogram done that showed a preserved left ventricular function and no significant valvular disease of the aorta or the mitral valves. The patient had severe tricuspid insufficiency and severe pulmonary hypertension. The estimated pulmonary artery pressure was 91 mmHg. The patient was seen and evaluated by the registered occupational therapist for the pulmonary hypertension and it was dec ided to do a right heart catheterization to accurately assess the pressures. The patient was brought to the catheter lab in an elective fashion after obtaining informed consent. The right groin area was prepped and draped in the usual fashion. The area was infiltrated with Xylocaine to obtain topical anesthesia. Using Seldinger technique a Cordis sheath was inserted into the femoral vein. A [place]-Ayo catheter was then advanced all the way to the RA then into the RV and after some manipula tion and with the utilization of a guidewire we were able to advance the [place]-Ayo catheter up into t he pulmonary artery. The catheter was advanced all the way into the wedge position. Wedge pressures were then recorded. Fo llowing that the balloon was deflated and PA pressures were recorded. The patient then received vasodilators and afterwards the PA pressure was recorded again. Pullback pressures were then done from the PDA to the RV and from the RV to the RA. The catheter was then removed. The sheath was then pulled and pressure was held for about 10 minutes after which appeared to be no a ctive bleeding. A dressing was applied to the groin and the patient was transferred to her room in [facility] tion after tolerating the procedure rather well. Findings: Pre-vasodilators pressures: Pulmonary wedge pressure mean of 29 mmHg Pulmonary artery pressure 72/30 mmHg. Post-vasodilator pressures: PA 60/28 mmHg RV 60 over 18 mmHg. RA 22 mmHg Conclusion This patient has severe pulmonary hypertension and the pressures appeared to respond to medications. Further workup and treatment as per the registered occupational therapist. NANCY MUNOZ MDMar 2016 14:44
== END 2016-05-05 15:43 | disposition home or self-care (01) | DRG 286 ==
LOC: ER 15:59 → 2 NORTH 20:53
PROVIDERS: ADMIT Internal Medicine; ATTEND Internal Medicine
PROC: 4A023N6 Measurement of Cardiac Sampling and Pressure, Right Heart, Percutaneous Approach (ICD-10-PCS; principal; 2016-05-04)
DX: I50.31 Acute diastolic (congestive) heart failure (principal); J96.01 Acute respiratory failure with hypoxia; I13.0 Hypertensive heart and chronic kidney disease with heart failure and stage 1 through stage 4 chronic kidney disease, or unspecified chronic kidney disease; S36.039A Unspecified laceration of spleen, initial encounter; D50.9 Iron deficiency anemia, unspecified; E11.22 Type 2 diabetes mellitus with diabetic chronic kidney disease; G47.33 Obstructive sleep apnea (adult) (pediatric); I72.8 Aneurysm of other specified arteries; J30.9 Allergic rhinitis, unspecified; K80.20 Calculus of gallbladder without cholecystitis without obstruction; X58.XXXA Exposure to other specified factors, initial encounter; N18.2 Chronic kidney disease, stage 2 (mild); Z82.49 Family history of ischemic heart disease and other diseases of the circulatory system; Y93.9 Activity, unspecified; Y92.9 Unspecified place or not applicable; Y99.9 Unspecified external cause status
CPT/HCPCS: 36415; 71010; 71275; 74177; 80048; 80053; 80061; 80076; 81001; 82607; 82728; 82746; 82947; 83540; 83550; 83690; 83880; 84443; 84484; 85027; 85610; 86703; 87086; 93005; 93306; 93451; 93970; 94250; 94640; 94799; C1769; C1892; J1650; J1815; J1940; J2250; J3010; J7040; J7620; Q9966; Q9967; 99285-25